=== PATIENT | female | born 1965 | race African-American/Black ===

== ENCOUNTER 2016-08-27 18:46 | Emergency (ER) | payer OTHER ==
--- NOTE | 2016-08-27 19:42 | ED ---
Chest Pain HPI - General Chief Complaint: Chest Pain Stated Complaint: Chest pain, Time Seen by Provider: 08/27/16 19:08 Source: patient, RN notes reviewed Mode of arrival: wheelchair Limitations: no limitations - History of Present Illness Initial Comments: This is a 51-year-old female who states she had the onset of intermittent pain over the left arm riding down to her left side today while at work. 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 She denies any personal history of heart or lung disease she is a smoker she has a family history heart disease she has a cough or phlegm production fevers chills sweats or other symptoms. MD Complaint: chest pain, other - Related Data Home Medications Medication Instructions Recorded Confirmed HYDROcodone/APAP 10-325MG [[place] 1 tab PO QID 05/23/14 08/27/16 10-325] clonazePAM [KlonoPIN] 1 mg PO TID PRN 05/23/14 08/27/16 Albuterol Inhaler [Ventolin Hfa 2 puff INHALATION RT-Q4H PRN 09/09/14 08/27/16 Inhaler] Albuterol Nebulized [Ventolin 2.5 mg INHALATION RT-Q6H PRN 11/02/15 08/27/16 Nebulized] cloNIDine HCL [Catapres] 0.1 mg PO BID 01/16/16 08/27/16 Omeprazole [PriLOSEC] 20 mg PO DAILY 08/27/16 08/27/16 amLODIPine [Norvasc] 5 mg PO BID 08/27/16 08/27/16 Previous Rx's Medication Instructions Recorded Metoprolol Tartrate [Lopressor] 25 mg PO BID #30 tab 11/02/15 Cyclobenzaprine [Flexeril] 10 mg PO TID #14 tab 08/27/16 Ibuprofen [Motrin] 800 mg PO Q6HR PRN #20 tab 08/27/16 Allergies Allergy/AdvReac Type Severity Reaction Status Date / Time No Known Allergies Allergy Verified 08/27/16 20:01 Review of Systems ROS Statement: Those systems with pertinent positive or pertinent negative responses have been documented in the HPI. ROS Other: All systems not noted in ROS Statement are negative. EKG Findings - EKG Results: EKG: interpreted by CHANTELLE HERNANDEZ, sinus rhythm, normal axis, normal QRS, normal ST/ T, no acute changes (EKG shows normal sinus rhythm of 81. Interval 144 QRS duration 82 QT/QTC of 370/[address]-T wave changes and does appear to be a normal EKG.) Past Medical History Past Medical History: Asthma, GERD/Reflux, Hypertension, Osteoarthritis (OA), Thyroid Disorder Additional Past Medical History / Comment(s): Anemia History of Any Multi-Drug Resistant Organisms: None Reported Past Surgical History: Appendectomy, Cholecystectomy, Tubal Ligation Additional Past Surgical History / Comment(s): Lipoma removed from left shoulder Past Anesthesia/Blood Transfusion Reactions: No Reported Reaction Past Psychological History: Anxiety, Depression, PTSD, Schizophrenia Smoking Status: Current every day smoker Past Alcohol Use History: Occasional Past Drug Use History: Marijuana Additional Drug Use History / Comment(s): doesn't use anymore - Past Family History Father Family Medical History: Myocardial Infarction ([place]) Mother Family Medical History: AFIB Sister(s) Family Medical History: Cancer, Deep Vein Thrombosis (DVT) General Exam - General Exam Comments Initial Comments: This is a well-developed well-nourished awake alert oriented 3 female Limitations: no limitations General appearance: alert, in no apparent distress Head exam: Present: atraumatic, normocephalic, normal inspection Eye exam: Present: normal appearance, PERRL, EOMI. Absent: scleral icterus, conjunctival injection, periorbital swelling ENT exam: Present: normal exam, mucous membranes moist Neck exam: Present: normal inspection. Absent: tenderness, meningismus, lymphadenopathy Respiratory exam: Present: normal lung sounds bilaterally. Absent: respiratory distress, wheezes, rales, rhonchi, stridor Cardiovascular Exam: Present: regular rate, normal rhythm, normal heart sounds. Absent: systolic murmur, diastolic murmur, rubs, gallop, clicks GI/Abdominal exam: Present: soft, normal bowel sounds. Absent: distended, tenderness, guarding, rebound, rigid Extremities exam: Present: normal inspection, full ROM, normal capillary refill. Absent: tenderness, pedal edema, joint swelling, calf tenderness Back exam: Present: normal inspection Neurological exam: Present: alert, oriented X3, CN II-XII intact Psychiatric exam: Present: normal affect, normal mood Skin exam: Present: warm, dry, intact, normal color. Absent: rash Course Vital Signs 08/27/16 08/27/16 08/27/16 18:50 19:35 20:15 Temperature 98.1 F Pulse Rate 94 84 76 Respiratory 20 18 18 Rate Blood Pressure 189/131 160/116 160/119 O2 Sat by Pulse 99 96 100 Oximetry - Reevaluation(s) Reevaluation #1: 08/27/16 19:43 I did have a long conversation with the patient regarding smoking and smoking cessation as well as a risk factors. This lasted 3.1 minutes. Chest Pain MDM - MDM Patient initially much improved I did discuss the findings with her. We did again discuss smoking cessation and the need for this. The total conversation lasted 3.1 minutes. Patient will be discharged on anti-inflammatory she is also to increase her oral fluids follow-up with her doctor return when necessary Disposition Clinical Impression: Atypical chest pain, Musculoskeletal pain, Smoking Disposition: HOME SELF-CARE Condition: Good Instructions: Chest Wall Pain (ED), Musculoskeletal Pain (ED), How to Stop Smoking (ED) Prescriptions: Cyclobenzaprine [Flexeril] 10 mg PO TID #14 tab Ibuprofen [Motrin] 800 mg PO Q6HR PRN #20 tab PRN Reason: Pain
[2016-08-27] MEDS ORDERED: cloNIDine HCL 0.1 MG TAB PO STA (19:47)
[2016-08-27] MEDS ORDERED: amLODIPine 5 MG TAB PO STA (19:48)
[2016-08-27 20:00] LABS: Anisocytosis Slight; Basophils # (A) 0.1 k/uL (0-0.2); Basophils % (A) 1 %; CH 27.4; CHCM 31.7; Eosinophils # (A) 0.1 k/uL (0-0.7); Eosinophils % (A) 2 %; HDW 2.83; HGB 11.9 gm/dL (11.4-16.0); Luc # (Auto) 0.13; Luc % (Auto) 2; Lymphocytes # (A) 1.4 k/uL (1.0-4.8); Lymphocytes % (A) 24 %; MCH 27.2 pg (25.0-35.0); MCHC 31.3 g/dL (31.0-37.0); MCV 86.8 fL (80.0-100.0); Mean Platelet Volume 6.8; Monocytes # (A) 0.2 k/uL (0-1.0); Monocytes % (A) 4 %; Neutrophils # (A) 3.8 k/uL (1.3-7.7); Neutrophils % (A) 67 %; RBC 4.38 m/uL (3.80-5.40); RDW 16.6 % (11.5-15.5); WBC 5.7 k/uL (3.8-10.6); WBC (Perox) 5.73
--- NOTE | 2016-08-27 20:07 | XR ---
EXAMINATION TYPE: XR chest 2V DATE OF EXAM: 08/27/2016 7:46 PM COMPARISON: 01/28/2016 INDICATION: Chest pain TECHNIQUE: 2 view chest FINDINGS: The heart size is normal. The pulmonary vasculature is normal. The lungs are clear. Scoliosis is present. IMPRESSION: 1. No acute pulmonary process.
[2016-08-27 20:11] LABS: ALT 30 U/L (9-52); AST 19 U/L (14-36); Alkaline Phosphatase 70 U/L (38-126); Anion Gap 8 mmol/L; Blood Urea Nitrogen 20 mg/dL (7-17); Calcium 9.5 mg/dL (8.4-10.2); Carbon Dioxide 27 mmol/L (22-30); Chloride 109 mmol/L (98-107); Glucose 88 mg/dL (74-99); Non-African American GFR(MDRD) >60 (>60 ml/min/1.73 sqM); Potassium 3.8 mmol/L (3.5-5.1); Sodium 144 mmol/L (137-145); Total Bilirubin 0.5 mg/dL (0.2-1.3); Total Protein 7.4 g/dL (6.3-8.2)
[2016-08-27 20:14] VITALS: RESP 18
[2016-08-27 20:28] LABS: Creatine Kinase 114 U/L (30-135)
[2016-08-27 20:29] LABS: Partial Thromboplastin Time 24.7 sec (22.0-30.0); Prothrombin Time 10.4 sec (9.0-12.0)
[2016-08-27 20:41] LABS: Creatine Kinase MB 0.9 ng/mL (0.0-2.4); Troponin I <0.012 ng/mL (0.000-0.034)
[2016-08-27 21:39] VITALS: BP 165/116; PULSE 74; TEMP 98.9
== END 2016-08-27 21:30 | disposition home or self-care (01) ==
LOC: EC 18:46
DX: R07.89 Other chest pain (principal); I10 Essential (primary) hypertension; M19.90 Unspecified osteoarthritis, unspecified site; K21.9 Gastro-esophageal reflux disease without esophagitis; F17.200 Nicotine dependence, unspecified, uncomplicated; Z79.891 Long term (current) use of opiate analgesic; Z79.899 Other long term (current) drug therapy
CPT/HCPCS: 36415; 71020; 80053; 82550; 82553; 83735; 84484; 85025; 85379; 85610; 85730; 93005; 99285

== ENCOUNTER 2017-02-13 08:48 | Emergency (ER) | payer OTHER ==
[2017-02-13 09:04] VITALS: BP 158/106; PULSE 81; RESP 18; TEMP 97.9
--- NOTE | 2017-02-13 09:16 | ED ---
General Adult HPI - General Chief complaint: Extremity Injury, Lower Stated complaint: left knee problem Time Seen by Provider: 02/13/17 09:08 Source: patient, RN notes reviewed Mode of arrival: ambulatory Limitations: no limitations - History of Present Illness Initial comments: 52-year-old female presents to the emergency department with a chief complaint of left knee pain. Patient states she was dancing over the weekend and she did the splits and unlabored back up she felt a pop in her knee. Patient states she has pain and pain to the back of the knee. Patient states that she has not been resting or icing it. Patient states that she was concerned because just does not seem to be getting better so she thought that she should be evaluated. Patient denies any other symptoms at this time. Patient denies any recent fever, chills, shortness of breath, chest pain, back pain, abdominal pain, nausea vomiting, numbness or tingling, dysuria or hematuria, constipation or diarrhea, headaches or visual changes, or any other current symptoms. - Related Data Home Medications Medication Instructions Recorded Confirmed HYDROcodone/APAP 10-325MG [[place] 1 tab PO QID 05/23/14 08/27/16 10-325] clonazePAM [KlonoPIN] 1 mg PO TID PRN 05/23/14 08/27/16 Albuterol Inhaler [Ventolin Hfa 2 puff INHALATION RT-Q4H PRN 09/09/14 08/27/16 Inhaler] cloNIDine HCL [Catapres] 0.1 mg PO BID 01/16/16 08/27/16 Omeprazole [PriLOSEC] 20 mg PO DAILY 08/27/16 08/27/16 amLODIPine [Norvasc] 5 mg PO BID 08/27/16 08/27/16 Metoprolol Tartrate [Lopressor] 25 mg PO DAILY 02/13/17 02/13/17 buPROPion SR [Wellbutrin SR] 150 mg PO BID 02/13/17 02/13/17 Previous Rx's Medication Instructions Recorded Ibuprofen [Motrin] 600 mg PO Q6HR PRN #20 tab 02/13/17 Allergies Allergy/AdvReac Type Severity Reaction Status Date / Time No Known Allergies Allergy Verified 02/13/17 09:29 Review of Systems ROS Statement: Those systems with pertinent positive or pertinent negative responses have been documented in the HPI. ROS Other: All systems not noted in ROS Statement are negative. Past Medical History Past Medical History: Asthma, GERD/Reflux, Hypertension, Osteoarthritis (OA), Thyroid Disorder Additional Past Medical History / Comment(s): Anemia History of Any Multi-Drug Resistant Organisms: None Reported Past Surgical History: Appendectomy, Cholecystectomy, Tubal Ligation Additional Past Surgical History / Comment(s): Lipoma removed from left shoulder Past Anesthesia/Blood Transfusion Reactions: No Reported Reaction Past Psychological History: ADD/ADHD, Anxiety, Bipolar, Depression, Panic Disorder, PTSD, Schizophrenia Smoking Status: Current every day smoker Past Alcohol Use History: Occasional Past Drug Use History: Marijuana - Past Family History Father Family Medical History: Myocardial Infarction ([place]) Mother Family Medical History: AFIB Sister(s) Family Medical History: Cancer, Deep Vein Thrombosis (DVT) General Exam - General Exam Comments Initial Comments: General: The patient is awake and alert, in no distress, and does not appear acutely ill. Neck: The neck is supple, there is no tenderness. Cardiovascular: There is a regular rate and rhythm. No murmur, rub or gallop is appreciated. Respiratory: Lungs are clear to auscultation, respirations are non-labored, breath sounds are equal. No wheezes, stridor, rales, or rhonchi. Musculoskeletal: Sensation intact with 2+ pulses at the left flexion. [place] motion of left hip left knee and left ankle. Patient does appear to have some posterior swelling to left knee and some tenderness along the patella. Full range of motion of the left knee. No laxity noted. Neurological: CN II-XII intact, There are no obvious motor or sensory deficits. Coordination appears grossly intact. Speech is normal. Skin: Skin is warm and dry and no rashes or lesions are noted. Psychiatric: Normal mood and affect. Limitations: no limitations Course Vital Signs 02/13/17 08:59 Temperature 97.9 F Pulse Rate 81 Respiratory 18 Rate Blood Pressure 158/106 O2 Sat by Pulse 100 Oximetry Procedures - Orthopedic Splinting/Casting Injury #1 Side: left Lower Extremity Injury Location: knee Lower Extremity Immobilizer: Dawson wrap Medical Decision Making - Medical Decision Making 52-year-old female presents with what appears the left knee strain. We did review the x-rays. Patient states Dawson bandage and will start her on Motrin. We discussed return parameters and follow-up and outpatient and family's questions. They stated that they are in agreement this plan. All questions have been answered. They will be discharged. - Radiology Data Radiology results: report reviewed, image reviewed Disposition Clinical Impression: Left knee sprain Disposition: HOME SELF-CARE Condition: Stable Instructions: Knee Pain (ED) Additional Instructions: Please use medication as discussed. Please follow up with family doctor if symptoms have not improved over the next two days. Please return to the emergency room if your symptoms increase or worsen or for any other concerns. Prescriptions: Ibuprofen [Motrin] 600 mg PO Q6HR PRN #20 tab PRN Reason: Pain Referrals: Riley Govea MD [Primary Care Provider] - 1-2 days Time of Disposition: 09:50
--- NOTE | 2017-02-13 09:41 | XR ---
EXAMINATION TYPE: XR knee complete LT DATE OF EXAM: 02/13/2017 CLINICAL HISTORY: Knee pain and swelling after straining injury a few days ago. TECHNIQUE: Three views of the left knee are obtained. COMPARISON: None. FINDINGS: There is no acute fracture/dislocation evident in left knee. The tri-compartment joint sp aces appear within normal limits. The overlying soft tissue appears unremarkable. IMPRESSION: There is no acute fracture or dislocation in the left knee.
== END 2017-02-13 09:52 | disposition home or self-care (01) ==
LOC: EC 08:48
DX: S83.92XA Sprain of unspecified site of left knee, initial encounter (principal); I10 Essential (primary) hypertension; K21.9 Gastro-esophageal reflux disease without esophagitis; F32.9 Major depressive disorder, single episode, unspecified; F41.9 Anxiety disorder, unspecified; F17.200 Nicotine dependence, unspecified, uncomplicated; Z79.891 Long term (current) use of opiate analgesic; Z79.899 Other long term (current) drug therapy; X50.9XXA Other and unspecified overexertion or strenuous movements or postures, initial encounter; Y93.41 Activity, dancing; Y92.89 Other specified places as the place of occurrence of the external cause
CPT/HCPCS: 99283

== ENCOUNTER 2017-02-14 22:23 | Emergency (ER) | payer OTHER ==
[2017-02-14 22:42] VITALS: PULSE 107; RESP 18; TEMP 97.5
[2017-02-14] MEDS ORDERED: KETOROLAC 60 MG/2 ML VIAL IM STA (22:57)
--- NOTE | 2017-02-14 22:59 | ED ---
Lower Extremity Injury HPI - General Chief Complaint: Extremity Injury, Lower Stated Complaint: Leg Pain Time Seen by Provider: 02/14/17 22:42 Source: patient, RN notes reviewed Mode of arrival: ambulatory Limitations: no limitations - History of Present Illness Initial Comments: 52-year-old female present emergency department for recheck of her left knee. Patient states that she did this with other day and had a pop in her knee. Patient x-ray shows no acute abnormality. Patient states she's had rapid has not unwrapped and states that she noticed some swelling around it. Patient denies any discoloration. Patient states is still slightly painful. She does take [place] daily. Patient was also given ibuprofen. Patient has not follow-up with orthopedics as directed. Patient offers no other complaints. - Related Data Home Medications Medication Instructions Recorded Confirmed HYDROcodone/APAP 10-325MG [[place] 1 tab PO QID 05/23/14 02/14/17 10-325] clonazePAM [KlonoPIN] 1 mg PO BID PRN 05/23/14 02/14/17 Albuterol Inhaler [Ventolin Hfa 2 puff INHALATION RT-Q4H PRN 09/09/14 02/14/17 Inhaler] cloNIDine HCL [Catapres] 0.1 mg PO BID PRN 01/16/16 02/14/17 Omeprazole [PriLOSEC] 20 mg PO DAILY 08/27/16 02/14/17 amLODIPine [Norvasc] 5 mg PO BID 08/27/16 02/14/17 Metoprolol Tartrate [Lopressor] 25 mg PO DAILY 02/13/17 02/14/17 buPROPion SR [Wellbutrin SR] 150 mg PO BID 02/13/17 02/14/17 Previous Rx's Medication Instructions Recorded Ibuprofen [Motrin] 600 mg PO Q6HR PRN #20 tab 02/13/17 Allergies Allergy/AdvReac Type Severity Reaction Status Date / Time No Known Allergies Allergy Verified 02/14/17 22:54 Review of Systems ROS Statement: Those systems with pertinent positive or pertinent negative responses have been documented in the HPI. ROS Other: All systems not noted in ROS Statement are negative. Past Medical History Past Medical History: Asthma, GERD/Reflux, Hypertension, Osteoarthritis (OA), Thyroid Disorder Additional Past Medical History / Comment(s): Anemia History of Any Multi-Drug Resistant Organisms: None Reported Past Surgical History: Appendectomy, Cholecystectomy, Tubal Ligation Additional Past Surgical History / Comment(s): Lipoma removed from left shoulder Past Anesthesia/Blood Transfusion Reactions: No Reported Reaction Past Psychological History: ADD/ADHD, Anxiety, Bipolar, Depression, Panic Disorder, PTSD, Schizophrenia Smoking Status: Current every day smoker Past Alcohol Use History: Occasional Past Drug Use History: Marijuana - Past Family History Father Family Medical History: Myocardial Infarction ([place]) Mother Family Medical History: AFIB Sister(s) Family Medical History: Cancer, Deep Vein Thrombosis (DVT) General Exam Limitations: no limitations General appearance: alert, in no apparent distress Respiratory exam: Present: normal lung sounds bilaterally. Absent: respiratory distress, wheezes, rales, rhonchi, stridor Cardiovascular Exam: Present: regular rate, normal rhythm, normal heart sounds. Absent: systolic murmur, diastolic murmur, rubs, gallop, clicks Extremities exam: Present: other (Left knee full range of motion mild tenderness to anterior surface, there is swelling noted of the left knee small effusion noted, neurovascular intact lower extremity equal strength) Course Vital Signs 02/14/17 22:36 Temperature 97.5 F L Pulse Rate 107 H Respiratory 18 Rate Blood Pressure 187/123 O2 Sat by Pulse 98 Oximetry Medical Decision Making - Medical Decision Making 52-year-old female presented for recheck of left knee. Patient has a left knee sprain. Patient had swelling because she has not unwrapped it. She is advised on wrap it elevated and follow-up with orthopedics return parameters were discussed. Disposition Clinical Impression: Left knee sprain Disposition: HOME SELF-CARE Condition: Stable Instructions: Knee Sprain (ED) Additional Instructions: Please return to the Emergency Department if symptoms worsen or any other concerns. Referrals: Riley Govea MD [Primary Care Provider] - 1-2 days Lance Sinclair MD [STAFF PHYSICIAN] - 1-2 days Time of Disposition: 22:59
[2017-02-14 23:05] VITALS: BP 169/114
== END 2017-02-14 23:13 | disposition home or self-care (01) ==
LOC: EC 22:23
DX: S83.92XD Sprain of unspecified site of left knee, subsequent encounter (principal); I10 Essential (primary) hypertension; K21.9 Gastro-esophageal reflux disease without esophagitis; F32.9 Major depressive disorder, single episode, unspecified; F41.9 Anxiety disorder, unspecified; F17.200 Nicotine dependence, unspecified, uncomplicated; Z79.891 Long term (current) use of opiate analgesic; Z79.899 Other long term (current) drug therapy; X58.XXXD Exposure to other specified factors, subsequent encounter; Y93.89 Activity, other specified
CPT/HCPCS: 99283; 96372; J1885

== ENCOUNTER 2017-09-06 21:44 | Observation (INO) | payer OTHER ==
[2017-09-06] MEDS ORDERED: cloNIDine HCL 0.1 MG TAB PO STA (22:20)
[2017-09-06] MEDS ORDERED: amLODIPine 5 MG TAB PO STA (22:20)
--- NOTE | 2017-09-06 22:24 | ED ---
General Adult HPI - General Chief complaint: Recheck/Abnormal Lab/Rx Stated complaint: Hypertensive Time Seen by Provider: 09/06/17 22:12 Source: patient, RN notes reviewed Mode of arrival: ambulatory Limitations: no limitations - History of Present Illness Initial comments: Patient is a pleasant 52-year-old female presenting to the emergency department with hypertension. Patient states blood pressure has been more elevated for the past several weeks. Patient does provide numbers that are not consistent with a normal blood pressure, for example she states 114/140. Patient has been having some headaches at times. Headaches occur in different areas usually in the back. Headache is mild at this time. Patient is also had some tingling. No weakness or confusion. Patient was taken off her Lopressor several months ago because she feels it was raising her blood pressure. - Related Data Home Medications Medication Instructions Recorded Confirmed HYDROcodone/APAP 10-325MG [[place] 1 tab PO QID 05/23/14 09/06/17 10-325] clonazePAM [KlonoPIN] 1 mg PO BID PRN 05/23/14 09/06/17 Albuterol Inhaler [Ventolin Hfa 2 puff INHALATION RT-Q4H PRN 09/09/14 09/06/17 Inhaler] cloNIDine HCL [Catapres] 0.1 mg PO BID PRN 01/16/16 09/06/17 amLODIPine [Norvasc] 5 mg PO BID 08/27/16 09/06/17 Allergies Allergy/AdvReac Type Severity Reaction Status Date / Time No Known Allergies Allergy Verified 09/06/17 22:29 Review of Systems ROS Statement: Those systems with pertinent positive or pertinent negative responses have been documented in the HPI. ROS Other: All systems not noted in ROS Statement are negative. Constitutional: Denies: fever Eyes: Denies: eye pain ENT: Denies: ear pain Respiratory: Denies: cough Cardiovascular: Denies: chest pain, palpitations Endocrine: Denies: fatigue Gastrointestinal: Denies: abdominal pain Genitourinary: Denies: dysuria Musculoskeletal: Denies: back pain Skin: Denies: rash Neurological: Reports: headache, paresthesias. Denies: weakness, confusion Past Medical History Past Medical History: Asthma, GERD/Reflux, Hypertension, Osteoarthritis (OA), Thyroid Disorder Additional Past Medical History / Comment(s): Anemia History of Any Multi-Drug Resistant Organisms: None Reported Past Surgical History: Appendectomy, Cholecystectomy, Tubal Ligation Additional Past Surgical History / Comment(s): Lipoma removed from left shoulder Past Anesthesia/Blood Transfusion Reactions: No Reported Reaction Past Psychological History: ADD/ADHD, Anxiety, Bipolar, Depression, Panic Disorder, PTSD, Schizophrenia Smoking Status: Current every day smoker Past Alcohol Use History: Occasional Past Drug Use History: Marijuana - Past Family History Father Family Medical History: Myocardial Infarction ([place]) Mother Family Medical History: AFIB Sister(s) Family Medical History: Cancer, Deep Vein Thrombosis (DVT) General Exam Limitations: no limitations General appearance: alert, in no apparent distress Head exam: Present: atraumatic Eye exam: Present: normal appearance, PERRL, EOMI. Absent: nystagmus ENT exam: Present: normal oropharynx Neck exam: Present: normal inspection Respiratory exam: Present: normal lung sounds bilaterally Cardiovascular Exam: Present: regular rate, normal rhythm GI/Abdominal exam: Present: soft. Absent: tenderness Extremities exam: Present: normal inspection Neurological exam: Present: alert, CN II-XII intact. Absent: motor sensory deficit Expanded Speech: Present: fluid speech Cranial nerves: EOM's Intact: Normal, Facial Sensation: Normal Sensory exam: Upper Extremity Light Touch: Normal, Lower Extremity Light Touch: Normal Motor strength exam: RUE: 5, LUE: 5, RLE: 5, LLE: 5 Eye Response: (4) open spontaneously Motor Response: (6) obeys commands Verbal Response: (5) oriented Psychiatric exam: Present: normal affect, normal mood Skin exam: Present: normal color Course Vital Signs 09/06/17 09/06/17 09/06/17 22:01 22:31 23:39 Temperature 98.3 F 97.8 F Pulse Rate 101 H 89 82 Respiratory 20 18 16 Rate Blood Pressure 194/127 181/118 148/112 O2 Sat by Pulse 97 98 Oximetry EKG Findings - EKG Comments: EKG Findings:: Normal sinus rhythm 87. OK 152. QRS 76. QT 34. QTC 462. Normal axis. Septal Q waves. No acute ST change. Medical Decision Making - Medical Decision Making Patient reevaluated and headache is improved. Patient remains hypertensive despite several medications. Case was discussed in detail with Dr. Perez, who will admit for Dr. Govea. Patient updated. - Lab Data Result diagrams: 09/06/17 22:39 09/06/17 22:39 Lab Results 09/06/17 09/06/17 09/06/17 Range/Units 22:39 22:39 22:39 WBC 5.6 (3.8-10.6) k/uL RBC 4.57 (3.80-5.40) m/uL Hgb 12.6 (11.4-16.0) gm/dL Hct 38.7 (34.0-46.0) % MCV 84.6 (80.0-100.0) fL MCH 27.6 (25.0-35.0) pg MCHC 32.7 (31.0-37.0) g/dL RDW 15.1 (11.5-15.5) % Plt Count 298 (150-450) k/uL Neutrophils % 64 % Lymphocytes % 27 % Monocytes % 4 % Eosinophils % 3 % Basophils % 1 % Neutrophils # 3.6 (1.3-7.7) k/uL Lymphocytes # 1.5 (1.0-4.8) k/uL Monocytes # 0.2 (0-1.0) k/uL Eosinophils # 0.2 (0-0.7) k/uL Basophils # 0.0 (0-0.2) k/uL PT 9.9 (9.0-12.0) sec INR 1.0 (<1.2) APTT 24.7 (22.0-30.0) sec Sodium 144 (137-145) mmol/L Potassium 3.8 (3.5-5.1) mmol/L Chloride 108 H (98-107) mmol/L Carbon Dioxide 24 (22-30) mmol/L Anion Gap 12 mmol/L BUN 17 (7-17) mg/dL Creatinine 0.80 (0.52-1.04) mg/dL Est GFR (CKD-EPI)AfAm >90 (>60 ml/min/1.73 sqM) Est GFR (CKD-EPI)NonAf 84 (>60 ml/min/1.73 sqM) Glucose 100 H (74-99) mg/dL Calcium 9.4 (8.4-10.2) mg/dL Total Bilirubin 0.3 (0.2-1.3) mg/dL AST 21 (14-36) U/L ALT 36 (9-52) U/L Alkaline Phosphatase 94 (38-126) U/L Total Protein 7.0 (6.3-8.2) g/dL Albumin 4.2 (3.5-5.0) g/dL - Radiology Data Radiology results: image reviewed (Computed tomography scan the brain shows no acute process.) Disposition Clinical Impression: Hypertensive urgency Disposition: ADMITTED IP TO THIS [facility] Referrals: Riley Govea MD [Primary Care Provider] - 1-2 days Decision Time: 00:26
[2017-09-06 22:49] LABS: Basophils % (A) 1 %; Eosinophils # (A) 0.2 k/uL (0-0.7); Eosinophils % (A) 3 %; HCT 38.7 % (34.0-46.0); HGB 12.6 gm/dL (11.4-16.0); Lymphocytes # (A) 1.5 k/uL (1.0-4.8); Lymphocytes % (A) 27 %; MCH 27.6 pg (25.0-35.0); MCHC 32.7 g/dL (31.0-37.0); MCV 84.6 fL (80.0-100.0); Mean Platelet Volume 6.5; Monocytes # (A) 0.2 k/uL (0-1.0); Monocytes % (A) 4 %; Neutrophils # (A) 3.6 k/uL (1.3-7.7); Neutrophils % (A) 64 %; Platelet Count 298 k/uL (150-450); RBC 4.57 m/uL (3.80-5.40); RDW 15.1 % (11.5-15.5); WBC 5.6 k/uL (3.8-10.6)
[2017-09-06 22:57] LABS: Partial Thromboplastin Time 24.7 sec (22.0-30.0); Prothrombin Time 9.9 sec (9.0-12.0)
[2017-09-06 22:58] LABS: ALT 36 U/L (9-52); AST 21 U/L (14-36); Albumin 4.2 g/dL (3.5-5.0); Alkaline Phosphatase 94 U/L (38-126); Anion Gap 12 mmol/L; Blood Urea Nitrogen 17 mg/dL (7-17); Calcium 9.4 mg/dL (8.4-10.2); Carbon Dioxide 24 mmol/L (22-30); Chloride 108 mmol/L (98-107); Glucose 100 mg/dL (74-99); Potassium 3.8 mmol/L (3.5-5.1); Sodium 144 mmol/L (137-145); Total Bilirubin 0.3 mg/dL (0.2-1.3)
--- NOTE | 2017-09-06 23:33 | CT ---
EXAMINATION TYPE: CT brain wo con DATE OF EXAM: 09/06/2017 COMPARISON: 12/01/2011 HISTORY: elevated blood pressure CT DLP: 892.10 mGycm Automated exposure control for dose reduction was used. FINDINGS: Ventricles and sulci appear normal. There is no mass effect nor midline shift. There is no sign of in tracranial hemorrhage. The calvarium is intact. IMPRESSION: NEGATIVE CT SCAN OF THE BRAIN. NO CHANGE.
[2017-09-06] MEDS ORDERED: ENALAPRILAT 1.25 MG/ML 1 ML VIAL IVP STA (23:56)
[2017-09-07] MEDS ORDERED: cloNIDine HCL 0.1 MG TAB PO PRN (00:27)
[2017-09-07] MEDS ORDERED: clonazePAM 1 MG TAB PO PRN (00:27)
[2017-09-07] MEDS ORDERED: NALOXONE 0.4 MG/ML 1 ML VIAL IV PRN (00:28)
[2017-09-07] MEDS ORDERED: SODIUM CHLORIDE 0.9% 1,000 ML IV SCH (00:30)
[2017-09-07] MEDS ORDERED: ENALAPRILAT 1.25 MG/ML 1 ML VIAL IVP PRN (00:33)
[2017-09-07 01:39] VITALS: BMI 30.2
[2017-09-07 07:57] VITALS: RESP 18
[2017-09-07] MEDS ORDERED: amLODIPine 5 MG TAB PO SCH (09:00)
[2017-09-07] MEDS ORDERED: ATENOLOL 25 MG TAB PO SCH (09:00)
[2017-09-07] MEDS ORDERED: ACETAMINOPHEN TAB 325 MG TAB PO PRN (09:08)
[2017-09-07 11:50] VITALS: BP 125/70; PULSE 71; TEMP 98.1
--- NOTE | 2017-09-07 13:05 | P.HPIM ---
History of Present Illness 52-year-old female is admitted because of elevated blood pressure apparently patient blood pressure is about 200 systolic. Patient's symptom is only headache patient denied any chest pain nausea vomiting patient denied any abdominal pain, blurry vision. Patient doesn't have any symptoms of hypertensive encephalopathy no confusion. Patient blood pressure at home is consistently elevated patient takes amlodipine 5 mg twice a day and clonidine as on as-needed basis for elevated blood pressure. Patient has been under a lot of stress and the patient is unsure whether patient is taking her blood pressure medications appropriately because of which she believes her blood pressure is elevated. Patient blood pressure has come down quite a bit just with addition of small dose of atenolol unsure whether patient is actually compliment with her medications. I extensively counseled her regarding the appropriate way to check blood pressure. Patient was asked to check blood pressure twice a day for about a week and take it to primary care physician's office Dr. Govea's office for titration of her medications. Counseling regarding low-salt diet was provided patient is noncompliant with her diet as well. Patient is an -[place] female, because of which diuretic therapy will be the first line of medication for her hypertension. Anyway because patient is bit tachycardic as start her on atenolol I'll discontinue her when necessary clonidine. Patient will need to use low-salt diet. Review of Systems REVIEW OF SYSTEMS: CONSTITUTIONAL: No fever, no malaise, no fatigue. HEENT: No recent visual problems or hearing problems. Denied any sore throat. CARDIOVASCULAR: No chest pain, orthopnea, PND, no palpitations, no syncope. PULMONARY: No shortness of breath, no cough, no hemoptysis. GASTROINTESTINAL: No diarrhea, no nausea, no vomiting, no abdominal pain. Normoactive bowel sounds. NEUROLOGICAL: , no weakness, no numbness. HEMATOLOGICAL: Denies any bleeding or petechiae. GENITOURINARY: Denies any burning micturition, frequency, or urgency. MUSCULOSKELETAL/RHEUMATOLOGICAL: Denies any joint pain, swelling, or any muscle pain. ENDOCRINE: Denies any polyuria or polydipsia. The rest of the 14-point review of systems is negative. Past Medical History Past Medical History: Asthma, GERD/Reflux, Hypertension, Osteoarthritis (OA), Thyroid Disorder Additional Past Medical History / Comment(s): Anemia, chronic back pain see Dr. Polo for pain specialist History of Any Multi-Drug Resistant Organisms: None Reported Past Surgical History: Appendectomy, Cholecystectomy, Tubal Ligation Additional Past Surgical History / Comment(s): Lipoma removed from left shoulder Past Anesthesia/Blood Transfusion Reactions: No Reported Reaction Past Psychological History: ADD/ADHD, Anxiety, Bipolar, Depression, Panic Disorder, PTSD, Schizophrenia Smoking Status: Current every day smoker Past Alcohol Use History: Daily Additional Past Alcohol Use History / Comment(s): pt states for the last few months she has been drinking 1/2 pint every day. denies going thru DT's or having surgeries Past Drug Use History: None Reported - Past Family History Father Family Medical History: Myocardial Infarction ([place]) Mother Family Medical History: AFIB Sister(s) Family Medical History: Cancer, Deep Vein Thrombosis (DVT) Medications and Allergies Home Medications Medication Instructions Recorded Confirmed Type HYDROcodone/APAP 10-325MG [[place] 1 tab PO QID 05/23/14 09/06/17 History 10-325] clonazePAM [KlonoPIN] 1 mg PO BID PRN 05/23/14 09/06/17 History Albuterol Inhaler [Ventolin Hfa 2 puff INHALATION RT-Q4H PRN 09/09/14 09/06/17 History Inhaler] amLODIPine [Norvasc] 5 mg PO BID 08/27/16 09/06/17 History Atenolol 25 mg PO DAILY #30 tablet 09/07/17 Rx Allergies Allergy/AdvReac Type Severity Reaction Status Date / Time No Known Allergies Allergy Verified 09/06/17 22:29 Physical Exam Vitals: Vital Signs Temp Pulse Pulse Resp BP BP Pulse Ox 09/07/17 11:35 98.1 F 71 18 125/70 97 09/07/17 08:00 18 09/07/17 07:30 97.9 F 69 18 116/82 98 09/07/17 04:00 98.0 F 78 16 114/71 96 09/07/17 02:02 16 09/07/17 01:28 98.0 F 86 16 126/94 94 L 09/07/17 00:42 84 18 140/100 97 09/06/17 23:39 82 16 148/112 98 09/06/17 22:31 97.8 F 89 18 181/118 97 09/06/17 22:01 98.3 F 101 H 20 194/127 Intake and Output 09/06/17 09/07/17 09/07/17 22:59 06:59 14:59 Intake Total 420 Balance 420 Intake: Oral 420 Other: Voiding Method Toilet Toilet # Voids 3 Weight 79.832 kg 79.832 kg PHYSICAL EXAMINATION: GENERAL: The patient is alert and oriented x3, not in any acute distress. Well developed, well nourished. HEENT: Pupils are round and equally reacting to light. EOMI. No scleral icterus. No conjunctival pallor. Normocephalic, atraumatic. No pharyngeal erythema. No thyromegaly. CARDIOVASCULAR: S1 and S2 present. No murmurs, rubs, or gallops. PULMONARY: Chest is clear to auscultation, no wheezing or crackles. ABDOMEN: Soft, nontender, nondistended, normoactive bowel sounds. No palpable organomegaly. MUSCULOSKELETAL: No joint swelling or deformity. EXTREMITIES: No cyanosis, clubbing, or pedal edema. NEUROLOGICAL: Gross neurological examination did not reveal any focal deficits. SKIN: No rashes. Results CBC & Chem 7: 09/06/17 22:39 09/06/17 22:39 Labs: Abnormal Lab Results - Last 24 Hours (Table) 09/06/17 Range/Units 22:39 Chloride 108 H (98-107) mmol/L Glucose 100 H (74-99) mg/dL Thrombosis Risk Factor Assmnt - Choose All That Apply Each Factor Represents 1 point: Age 41-60 years, Obesity (BMI >25) Thrombosis Risk Factor Assessment Total Risk Factor Score: 2 Thrombosis Risk Factor Assessment Level: Low Risk Assessment and Plan Plan: -Accelerated hypertension: Patient does not have any hypertensive emergency, patient blood pressure has come down quite a bit had elevated blood pressures probably related to the stress of noncompliance with diet and medications. Adding a low-dose of atenolol with concerns of low blood pressure which can lead to either strokes or renal dysfunction. -Anxiety disorder -Nicotine use counseling was provided regarding this patient was asked not to check the blood pressure after coffee or cigarette smoking or if she is anxious. -Asthma without any acute exacerbation -Gastroesophageal reflux disease
--- NOTE | 2017-09-07 13:05 | P.DS ---
Providers Date of admission: 09/07/17 00:28 Attending physician: Alan Perez Primary care physician: Riley Govea [facility] Course: Please refer to HPI Plan - Discharge Summary New Discharge Prescriptions: New Atenolol 25 mg PO DAILY #30 tablet Discontinued cloNIDine HCL [Catapres] 0.1 mg PO BID PRN PRN Reason: Blood Pressure - High No Action clonazePAM [KlonoPIN] 1 mg PO BID PRN PRN Reason: Anxiety HYDROcodone/APAP 10-325MG [[place] 10-325] 1 tab PO QID Albuterol Inhaler [Ventolin Hfa Inhaler] 2 puff INHALATION RT-Q4H PRN PRN Reason: Shortness Of Breath amLODIPine [Norvasc] 5 mg PO BID Discharge Medication List HYDROcodone/APAP 10-325MG [[place] 10-325] 1 tab PO QID 05/23/14 [History] clonazePAM [KlonoPIN] 1 mg PO BID PRN 05/23/14 [History] Albuterol Inhaler [Ventolin Hfa Inhaler] 2 puff INHALATION RT-Q4H PRN 09/09/14 [ History] amLODIPine [Norvasc] 5 mg PO BID 08/27/16 [History] Atenolol 25 mg PO DAILY #30 tablet 09/07/17 [Rx] Follow up Appointment(s)/Referral(s): Riley Govea MD [Primary Care Provider] - 3 Days Patient Instructions/Handouts: Hypertension (DC) Discharge Disposition: HOME SELF-CARE
== END 2017-09-07 13:43 | disposition home or self-care (01) ==
LOC: EC 21:44 → 3OBS 09-07 00:28
PROVIDERS: ADMIT Internal Medicine; ATTEND Internal Medicine
DX: I10 Essential (primary) hypertension (principal); R00.0 Tachycardia, unspecified; K21.9 Gastro-esophageal reflux disease without esophagitis; J45.909 Unspecified asthma, uncomplicated; M19.90 Unspecified osteoarthritis, unspecified site; F41.9 Anxiety disorder, unspecified; D64.9 Anemia, unspecified; E66.9 Obesity, unspecified; Z68.30 Body mass index [BMI] 30.0-30.9, adult; F10.10 Alcohol abuse, uncomplicated; F17.210 Nicotine dependence, cigarettes, uncomplicated; Z91.11 Patient's noncompliance with dietary regimen; Z91.14 Patient's other noncompliance with medication regimen; F31.9 Bipolar disorder, unspecified; F20.9 Schizophrenia, unspecified; F90.9 Attention-deficit hyperactivity disorder, unspecified type; F41.0 Panic disorder [episodic paroxysmal anxiety]; F43.10 Post-traumatic stress disorder, unspecified; M54.9 Dorsalgia, unspecified; G89.29 Other chronic pain; E07.9 Disorder of thyroid, unspecified; Z79.891 Long term (current) use of opiate analgesic; Z79.899 Other long term (current) drug therapy; Z82.49 Family history of ischemic heart disease and other diseases of the circulatory system; Z80.9 Family history of malignant neoplasm, unspecified; Z83.2 Family history of diseases of the blood and blood-forming organs and certain disorders involving the immune mechanism
CPT/HCPCS: 99285 ×2; 96374; 36415; 93005; 80053; 85025; 85610; 85730; 70450; G0378

== ENCOUNTER 2017-12-29 17:25 | Observation (INO) | payer OTHER ==
[2017-12-29 18:36] LABS: Basophils % (A) 1 %; Eosinophils # (A) 0.2 k/uL (0-0.7); Eosinophils % (A) 3 %; HCT 39.5 % (34.0-46.0); HGB 12.6 gm/dL (11.4-16.0); Lymphocytes # (A) 1.1 k/uL (1.0-4.8); Lymphocytes % (A) 19 %; MCH 27.9 pg (25.0-35.0); MCHC 31.8 g/dL (31.0-37.0); MCV 87.6 fL (80.0-100.0); Mean Platelet Volume 6.8; Monocytes # (A) 0.2 k/uL (0-1.0); Monocytes % (A) 4 %; Neutrophils # (A) 4.1 k/uL (1.3-7.7); Neutrophils % (A) 72 %; Platelet Count 269 k/uL (150-450); RBC 4.51 m/uL (3.80-5.40); RDW 15.4 % (11.5-15.5); WBC 5.7 k/uL (3.8-10.6)
[2017-12-29 18:42] LABS: Partial Thromboplastin Time 24.3 sec (22.0-30.0); Prothrombin Time 9.7 sec (9.0-12.0)
[2017-12-29 18:43] LABS: Calcium 9.5 mg/dL (8.4-10.2); Potassium 4.2 mmol/L (3.5-5.1); Total Bilirubin 0.4 mg/dL (0.2-1.3); Total Protein 7.1 g/dL (6.3-8.2)
[2017-12-29 18:49] LABS: Creatine Kinase 97 U/L (30-135)
[2017-12-29 19:02] LABS: Creatine Kinase MB 0.8 ng/mL (0.0-2.4); Troponin I <0.012 ng/mL (0.000-0.034)
--- NOTE | 2017-12-29 20:14 | ED ---
General Adult HPI - General Chief complaint: Chest Pain Stated complaint: Chest Pain x4 days Time Seen by Provider: 12/29/17 19:19 Source: patient, RN notes reviewed Mode of arrival: wheelchair Limitations: no limitations - History of Present Illness Initial comments: Patient is a pleasant 52-year-old female presenting to the emergency Department with complaints of chest discomfort. Onset of symptoms was a few days ago. Symptoms have been mostly persistent. Discomfort has been sharp on the left breast. Discomfort today is radiating somewhat above the left breast and feels more like an ache. Patient felt short of breath or couple of days ago. No associated nausea or vomiting. No diaphoresis. No history of similar symptoms previously. No leg pain or leg swelling. - Related Data Home Medications Medication Instructions Recorded Confirmed HYDROcodone/APAP 10-325MG [[place] 1 tab PO TID 05/23/14 12/29/17 10-325] clonazePAM [KlonoPIN] 1 mg PO TID 05/23/14 12/29/17 Albuterol Inhaler [Ventolin Hfa 2 puff INHALATION RT-Q4H PRN 09/09/14 12/29/17 Inhaler] Aspirin EC [Ecotrin Low Dose] 81 mg PO DAILY 12/29/17 12/29/17 Betamethasone Dipropionate 1 applic TOPICAL DAILY PRN 12/29/17 12/29/17 [Betamethasone Dipropionate 0.05%] Multivitamin,Therapeutic [Thera] 1 tab PO DAILY 12/29/17 12/29/17 Omeprazole 20 mg PO DAILY 12/29/17 12/29/17 cloNIDine HCL [Catapres] 0.1 mg PO DAILY 12/29/17 12/29/17 Previous Rx's Medication Instructions Recorded Atenolol 25 mg PO DAILY #30 tablet 09/07/17 Allergies Allergy/AdvReac Type Severity Reaction Status Date / Time No Known Allergies Allergy Verified 12/29/17 17:37 Review of Systems ROS Statement: Those systems with pertinent positive or pertinent negative responses have been documented in the HPI. ROS Other: All systems not noted in ROS Statement are negative. Constitutional: Denies: fever Eyes: Denies: eye pain ENT: Denies: ear pain Respiratory: Denies: cough Cardiovascular: Reports: chest pain Endocrine: Denies: fatigue Gastrointestinal: Denies: abdominal pain Genitourinary: Denies: dysuria Musculoskeletal: Denies: back pain Skin: Denies: rash Neurological: Denies: weakness Past Medical History Past Medical History: Asthma, GERD/Reflux, Hypertension, Osteoarthritis (OA), Thyroid Disorder Additional Past Medical History / Comment(s): Anemia, chronic back pain see Dr. Polo for pain specialist History of Any Multi-Drug Resistant Organisms: None Reported Past Surgical History: Appendectomy, Cholecystectomy, Tubal Ligation Additional Past Surgical History / Comment(s): Lipoma removed from left shoulder Past Anesthesia/Blood Transfusion Reactions: No Reported Reaction Past Psychological History: ADD/ADHD, Anxiety, Bipolar, Depression, Panic Disorder, PTSD, Schizophrenia Smoking Status: Current every day smoker Past Alcohol Use History: Daily Past Drug Use History: None Reported - Past Family History Father Family Medical History: Myocardial Infarction ([place]) Mother Family Medical History: AFIB Sister(s) Family Medical History: Cancer, Deep Vein Thrombosis (DVT) General Exam Limitations: no limitations General appearance: alert, in no apparent distress Eye exam: Present: normal appearance Neck exam: Present: normal inspection Respiratory exam: Present: normal lung sounds bilaterally. Absent: chest wall tenderness Cardiovascular Exam: Present: regular rate, normal rhythm Expanded Peripheral pulses: 2+: Radial (R), Radial (L), Posterior Tibialis (R), Posterior Tibialis (L) GI/Abdominal exam: Present: soft. Absent: tenderness Extremities exam: Present: normal inspection. Absent: pedal edema, calf tenderness Back exam: Present: normal inspection Neurological exam: Present: alert Psychiatric exam: Present: normal affect, normal mood Skin exam: Present: normal color Course Vital Signs 12/29/17 17:34 Temperature 98.3 F Pulse Rate 79 Respiratory 16 Rate Blood Pressure 159/115 O2 Sat by Pulse 99 Oximetry EKG Findings - EKG Comments: EKG Findings:: Normal sinus rhythm 73. LA 154. QRS 70. QT 412. QTC 453. Normal axis. Septal Q waves. No acute ST change. Medical Decision Making - Medical Decision Making Patient was updated on results and plan. Case was discussed with practitioner Shelby, who will admit for Dr. Diaz, covering for Dr. francisco - Lab Data Result diagrams: 12/29/17 18:17 12/29/17 18:17 Lab Results 12/29/17 12/29/17 12/29/17 Range/Units 18:17 18:17 18:17 WBC 5.7 (3.8-10.6) k/uL RBC 4.51 (3.80-5.40) m/uL Hgb 12.6 (11.4-16.0) gm/dL Hct 39.5 (34.0-46.0) % MCV 87.6 (80.0-100.0) fL MCH 27.9 (25.0-35.0) pg MCHC 31.8 (31.0-37.0) g/dL RDW 15.4 (11.5-15.5) % Plt Count 269 (150-450) k/uL Neutrophils % 72 % Lymphocytes % 19 % Monocytes % 4 % Eosinophils % 3 % Basophils % 1 % Neutrophils # 4.1 (1.3-7.7) k/uL Lymphocytes # 1.1 (1.0-4.8) k/uL Monocytes # 0.2 (0-1.0) k/uL Eosinophils # 0.2 (0-0.7) k/uL Basophils # 0.0 (0-0.2) k/uL PT (9.0-12.0) sec INR (<1.2) APTT (22.0-30.0) sec D-Dimer (<0.60) mg/L FEU Sodium 143 (137-145) mmol/L Potassium 4.2 (3.5-5.1) mmol/L Chloride 111 H (98-107) mmol/L Carbon Dioxide 26 (22-30) mmol/L Anion Gap 6 mmol/L BUN 19 H (7-17) mg/dL Creatinine 0.94 (0.52-1.04) mg/dL Est GFR (CKD-EPI)AfAm 80 (>60 ml/min/1.73 sqM) Est GFR (CKD-EPI)NonAf 69 (>60 ml/min/1.73 sqM) Glucose 95 (74-99) mg/dL Calcium 9.5 (8.4-10.2) mg/dL Magnesium 2.0 (1.6-2.3) mg/dL Total Bilirubin 0.4 (0.2-1.3) mg/dL AST 21 (14-36) U/L ALT 35 (9-52) U/L Alkaline Phosphatase 81 (38-126) U/L Total Creatine Kinase 97 (30-135) U/L CK-MB (CK-2) 0.8 (0.0-2.4) ng/mL CK-MB (CK-2) Rel Index 0.8 Troponin I <0.012 (0.000-0.034) ng/mL Total Protein 7.1 (6.3-8.2) g/dL Albumin 4.0 (3.5-5.0) g/dL 12/29/17 12/29/17 Range/Units 18:17 18:17 WBC (3.8-10.6) k/uL RBC (3.80-5.40) m/uL Hgb (11.4-16.0) gm/dL Hct (34.0-46.0) % MCV (80.0-100.0) fL MCH (25.0-35.0) pg MCHC (31.0-37.0) g/dL RDW (11.5-15.5) % Plt Count (150-450) k/uL Neutrophils % % Lymphocytes % % Monocytes % % Eosinophils % % Basophils % % Neutrophils # (1.3-7.7) k/uL Lymphocytes # (1.0-4.8) k/uL Monocytes # (0-1.0) k/uL Eosinophils # (0-0.7) k/uL Basophils # (0-0.2) k/uL PT 9.7 (9.0-12.0) sec INR 1.0 (<1.2) APTT 24.3 (22.0-30.0) sec D-Dimer 0.37 (<0.60) mg/L FEU Sodium (137-145) mmol/L Potassium (3.5-5.1) mmol/L Chloride (98-107) mmol/L Carbon Dioxide (22-30) mmol/L Anion Gap mmol/L BUN (7-17) mg/dL Creatinine (0.52-1.04) mg/dL Est GFR (CKD-EPI)AfAm (>60 ml/min/1.73 sqM) Est GFR (CKD-EPI)NonAf (>60 ml/min/1.73 sqM) Glucose (74-99) mg/dL Calcium (8.4-10.2) mg/dL Magnesium (1.6-2.3) mg/dL Total Bilirubin (0.2-1.3) mg/dL AST (14-36) U/L ALT (9-52) U/L Alkaline Phosphatase (38-126) U/L Total Creatine Kinase (30-135) U/L CK-MB (CK-2) (0.0-2.4) ng/mL CK-MB (CK-2) Rel Index Troponin I (0.000-0.034) ng/mL Total Protein (6.3-8.2) g/dL Albumin (3.5-5.0) g/dL - Radiology Data Radiology results: image reviewed (Chest x-ray shows no acute process) Disposition Clinical Impression: Chest pain Disposition: ADMITTED IP TO THIS HOSP Is patient prescribed a controlled substance at d/c from ED?: No Referrals: Riley Francisco MD [Primary Care Provider] - 1-2 days Decision Time: 20:16
[2017-12-29] MEDS ORDERED: NITROGLYCERIN SL TABS 0.4 MG TAB SUBLINGUAL PRN (20:16)
[2017-12-29] MEDS ORDERED: ASPIRIN 81 MG PO STA (20:16)
--- NOTE | 2017-12-29 20:33 | XR ---
EXAMINATION TYPE: XR chest 2V DATE OF EXAM: 12/29/2017 COMPARISON: 08/27/2016 HISTORY: Chest pain TECHNIQUE: Frontal and lateral views of the chest are obtained. FINDINGS: Heart and mediastinum are normal. Lungs are clear. Diaphragm is normal. There is mild midt horacic dextroscoliosis. IMPRESSION: No active cardiopulmonary disease. No change.
[2017-12-29] MEDS ORDERED: ATENOLOL 25 MG TAB PO STA (20:57)
[2017-12-29] MEDS ORDERED: cloNIDine HCL 0.1 MG TAB PO STA (20:57)
[2017-12-29] MEDS: NITROGLYCERIN OINT 1 INCH/GM PACKET TOPICAL SCH (21:23)
[2017-12-29 23:34] VITALS: BMI 30.4
[2017-12-30] MEDS ORDERED: MORPHINE SULFATE 2 MG/ML SYRINGE IVP PRN (00:13)
[2017-12-30] MEDS ORDERED: ONDANSETRON 4 MG/2 ML VIAL IVP PRN (00:14)
[2017-12-30 01:17] LABS: Creatine Kinase 85 U/L (30-135)
[2017-12-30 01:28] LABS: Creatine Kinase MB 0.8 ng/mL (0.0-2.4); Troponin I <0.012 ng/mL (0.000-0.034)
[2017-12-30] MEDS: NITROGLYCERIN OINT 1 INCH/GM PACKET TOPICAL SCH (06:19)
[2017-12-30 06:43] LABS: Cholesterol 159 mg/dL (<200); HDL Cholesterol 51 mg/dL (40-60); LDL Cholesterol,Calculated 76 mg/dL (0-99); Triglycerides 160 mg/dL (<150)
[2017-12-30 07:09] LABS: Creatine Kinase 72 U/L (30-135)
[2017-12-30 07:23] LABS: Creatine Kinase MB 0.7 ng/mL (0.0-2.4); Troponin I <0.012 ng/mL (0.000-0.034)
[2017-12-30] MEDS ORDERED: ATENOLOL 25 MG TAB PO SCH (09:00)
[2017-12-30] MEDS ORDERED: ASPIRIN 325 MG TAB PO SCH (09:00)
[2017-12-30] MEDS ORDERED: cloNIDine HCL 0.1 MG TAB PO SCH (09:00)
--- NOTE | 2017-12-30 10:17 | CONS ---
CONSULTATION Jelena Jaffe is a very pleasant 52-year-old lady with a known history of hypertensive cardiovascular disease. She sees Dr. Riley Govea in the outpatient setting. She also takes pain medications for her back pain issues and uses an inhaler for her bronchial asthma. She is a reasonably active person. She came into the hospital with an episode of what she describes as discomfort under her left breast with some radiation towards the left clavicle. Quality of the pain is very atypical, musculoskeletal reproducible and there is tenderness as well. She does not recall any injury, but she has been lifting some heavy objects lately. Pain has already improved. She does not seem to have any pain at the time of my evaluation, but on examination, there is some tenderness. Her troponins are normal. Her last stress echo 2 years ago was unremarkable. She walked for over 9 minutes. She is asymptomatic at the time of my evaluation. PAST MEDICAL HISTORY: Bronchial asthma, hypertension, osteoarthritis, history of some thyroid issues, chronic back pain. Sees Dr. Polo for pain care. ALLERGIES: None. MEDICATIONS: Include atenolol, omeprazole, clonidine; she takes some inhalers for her bronchial asthma. REVIEW OF SYSTEMS: Unremarkable other than above-mentioned facts. SOCIAL HISTORY: Unfortunately patient smokes and continues to smoke. Uses alcohol on a regular basis. PHYSICAL EXAMINATION: Blood pressure is 130/80, pulse rate is 70 per minute, regular. HEENT: Unremarkable. Fundus was not examined by me. Neck is supple. There is no JVD. I do not hear a carotid bruit. There is no thyromegaly. Heart exam reveals S1, S2 heard normally. No rub, murmur or gallop. Lungs are clear. Abdomen is soft, nontender. Lower extremities reveal normal pulses. No edema. Central nervous system is normal. EKG revealed a sinus mechanism with poor R-wave progression, borderline voltage criteria for LVH. No acute changes. LABORATORY DATA: Revealed unremarkable troponins. IMPRESSION: 1. Atypical musculoskeletal chest pain. 2. Hypertension, under decent control. 3. Bronchial asthma. 4. History of smoking. RECOMMENDATIONS: I have counseled regarding the need to quit smoking. She is advised to take nonsteroidal anti-inflammatory agents for her pain. No intervention necessary at this time. An outpatient stress testing is advised and she will coordinate this through her primary care physician, Dr. Govea. MMODL / IJN: [id number] /
[2017-12-30 12:15] VITALS: BP 121/86; PULSE 67; RESP 16; TEMP 97.9
--- NOTE | 2017-12-30 20:08 | HP ---
HISTORY AND PHYSICAL This is a combination of History and Physical and Discharge Summary. I am covering for Dr. Govea. CHIEF COMPLAINT: Chest pain. HISTORY OF PRESENT ILLNESS: This 52-year-old woman with a past medical history of multiple medical problems including bronchial asthma, GERD, hypertension, DJD, hypothyroidism, anemia, ADHD, anxiety, bipolar depression, being followed by Dr. Govea in the outpatient setting was admitted with chest pain. The pain was felt in the lower part of the back with discomfort according to her and the patient came to [facility]. There is no history of fever or rigors. No headache. EKG n. Troponins are negative. Cardiology evaluation in progress. PAST MEDICAL HISTORY: History of asthma, GERD, hypertension, history of DJD, history of anemia, chronic back pain. MEDICATIONS: 1. Klonopin 1 mg t.i.d. 2. Catapres 0.1 daily. 3. Omeprazole 20 mg daily. 4. Multivitamins. 5. Hydrocodone 10 mg t.i.d. p.r.n. 7. Metoprolol 25 mg. 8. Ecotrin 81 mg. 9. Ventolin 2 puffs q.4h p.r.n. 10.Tylenol 500 mg p.r.n. ALLERGIES: None. FAMILY HISTORY: History of deep venous thrombosis and cancer in the family. SOCIAL HISTORY: History of smoking. Occasional alcohol intake. REVIEW OF SYSTEMS: ENT: No diminished hearing or vision. CARDIOVASCULAR: As mentioned earlier. RESPIRATORY SYSTEM: As mentioned earlier. GI: No nausea. : No dysuria. NERVOUS SYSTEM: No numbness or weakness. MUSCULOSKELETAL SYSTEM: As mentioned earlier. HEMATOLOGY/ONCOLOGY: No history of anemia. ENDOCRINE: No history of diabetes or hyperlipidemia. PSYCH: As mentioned earlier. PHYSICAL EXAMINATION: Alert, oriented x3. Pulse 67. Blood pressure 120/86, respirations 16, temperature 97.9, pulse ox 100% room air. HEENT: Conjunctivae normal. Oral mucosa moist. NECK: No jugular venous distention. No lymph nodes enlarged. CARDIOVASCULAR: S1, S2. RESPIRATORY: Diminished breath sounds at the bases. No rhonchi, no crackles. ABDOMEN: Soft, nontender. No mass palpable. LEGS: No edema, no swelling. NERVOUS SYSTEM: Higher functions as mentioned. Moves all four limbs. LYMPHATICS; No lymph nodes. SKIN: No ulcer, rash, bleeding. LAB STUDIES: D-dimer is negative. CBC within normal limits. 19. Triglycerides 160. Other labs are noted. Chest x-ray showed no acute abnormality and EKG which is reviewed by me and showed diffuse ST-T changes, no acute abnormality. ASSESSMENT: 1. Chest pain, myocardial infarction ruled out. Rule out coronary artery disease. 2. Asthma. 3. GERD. 4. Hypertension. 5. History of DJD. 6. History anemia. 7. History of chronic back pain. 8. History of anxiety, bipolar depression, panic disorder, PTSD. 9. History of EtOH. RECOMMENDATIONS AND DISCUSSION: In this 52-year-old woman who presented with multiple complex medical issues presented with chest pain. Myocardial infarction ruled out. Cardiology recommended outpatient stress test. Blood pressure is controlled. I recommend the patient to be discharged home. Resume the home medications and abstain from alcohol and smoking and outpatient stress test. Otherwise, see orders for details. Prognosis guarded. Further recommendations to follow. . TAWNYA / ELIASN: [id number] / MTDD
== END 2017-12-30 14:14 | disposition home or self-care (01) ==
LOC: EC 17:25 → 3OBS 20:16
PROVIDERS: ADMIT Family Medicine; ATTEND Family Medicine
DX: R07.89 Other chest pain (principal); I11.9 Hypertensive heart disease without heart failure; K21.9 Gastro-esophageal reflux disease without esophagitis; J45.909 Unspecified asthma, uncomplicated; M19.90 Unspecified osteoarthritis, unspecified site; E07.9 Disorder of thyroid, unspecified; G89.29 Other chronic pain; M54.9 Dorsalgia, unspecified; D64.9 Anemia, unspecified; F90.9 Attention-deficit hyperactivity disorder, unspecified type; F43.10 Post-traumatic stress disorder, unspecified; F41.0 Panic disorder [episodic paroxysmal anxiety]; F20.9 Schizophrenia, unspecified; F31.9 Bipolar disorder, unspecified; F41.9 Anxiety disorder, unspecified; Z72.89 Other problems related to lifestyle; F17.200 Nicotine dependence, unspecified, uncomplicated; Z79.82 Long term (current) use of aspirin; Z79.891 Long term (current) use of opiate analgesic; Z79.899 Other long term (current) drug therapy; Z90.49 Acquired absence of other specified parts of digestive tract; Z90.89 Acquired absence of other organs; Z98.51 Tubal ligation status; Z82.49 Family history of ischemic heart disease and other diseases of the circulatory system; Z80.9 Family history of malignant neoplasm, unspecified; Z83.2 Family history of diseases of the blood and blood-forming organs and certain disorders involving the immune mechanism
CPT/HCPCS: 99285 ×2; 36415; 93005; 85379; 80061; 80053; 82550 ×2; 82553 ×2; 83735; 84484 ×2; 85025; 85610; 85730; 71046; G0378 ×2

== ENCOUNTER 2018-01-06 18:19 | Emergency (ER) | payer OTHER ==
[2018-01-06 18:28] VITALS: BP 187/124; PULSE 85; RESP 18; TEMP 98.4
--- NOTE | 2018-01-06 18:54 | ED ---
Skin/Abscess/FB HPI - General Chief complaint: Skin/Abscess/Foreign Body Stated complaint: Rash, Itchy Time Seen by Provider: 01/06/18 18:31 Source: patient, RN notes reviewed Mode of arrival: ambulatory Limitations: no limitations - History of Present Illness Initial comments: This is a pleasant 52-year-old female presents emergency department complaining of a rash on bilateral lower extremities. Patient states that she has had that there for several months. Patient states that she believes she saw a logging engineer, Dr. Lott, had a biopsy and was diagnosed with lichen planus. Patient presents complaining of ongoing and worsening itching. Patient states that there really was no treatment done at the time of diagnosis. Patient states that she did not have any corticosteroids or intralesional injections. Patient denies shortness breath or chest pain. No fever or chills. No skin rash elsewhere. - Related Data Home Medications Medication Instructions Recorded Confirmed HYDROcodone/APAP 10-325MG [[place] 1 tab PO TID 05/23/14 12/29/17 10-325] clonazePAM [KlonoPIN] 1 mg PO TID 05/23/14 12/29/17 Albuterol Inhaler [Ventolin Hfa 2 puff INHALATION RT-Q4H PRN 09/09/14 12/29/17 Inhaler] Aspirin EC [Ecotrin Low Dose] 81 mg PO DAILY 12/29/17 12/29/17 Betamethasone Dipropionate 1 applic TOPICAL DAILY PRN 12/29/17 12/29/17 [Betamethasone Dipropionate 0.05%] Multivitamin,Therapeutic [Thera] 1 tab PO DAILY 12/29/17 12/29/17 Omeprazole 20 mg PO DAILY 12/29/17 12/29/17 cloNIDine HCL [Catapres] 0.1 mg PO DAILY 12/29/17 12/29/17 Previous Rx's Medication Instructions Recorded Atenolol 25 mg PO DAILY #30 tablet 09/07/17 Acetaminophen Tab [Tylenol Tab] 500 mg PO Q6H PRN #30 tablet 12/30/17 predniSONE 50 mg PO DAILY #6 tab 01/06/18 Allergies Allergy/AdvReac Type Severity Reaction Status Date / Time No Known Allergies Allergy Verified 01/06/18 18:27 Review of Systems ROS Statement: Those systems with pertinent positive or pertinent negative responses have been documented in the HPI. ROS Other: All systems not noted in ROS Statement are negative. Past Medical History Past Medical History: Asthma, GERD/Reflux, Hypertension, Osteoarthritis (OA), Thyroid Disorder Additional Past Medical History / Comment(s): Anemia, chronic back pain see Dr. Polo for pain specialist History of Any Multi-Drug Resistant Organisms: None Reported Past Surgical History: Appendectomy, Cholecystectomy, Tubal Ligation Additional Past Surgical History / Comment(s): Lipoma removed from left shoulder Past Anesthesia/Blood Transfusion Reactions: No Reported Reaction Past Psychological History: ADD/ADHD, Anxiety, Bipolar, Depression, Panic Disorder, PTSD, Schizophrenia Smoking Status: Current every day smoker Past Alcohol Use History: Occasional Past Drug Use History: Marijuana - Past Family History Father Family Medical History: Myocardial Infarction (ID) Mother Family Medical History: AFIB Sister(s) Family Medical History: Cancer, Deep Vein Thrombosis (DVT) General Exam - General Exam Comments Initial Comments: Well-developed, well-nourished 52-year-old female in no distress Limitations: no limitations General appearance: alert, in no apparent distress Head exam: Present: atraumatic, normocephalic, normal inspection Eye exam: Present: normal appearance, EOMI ENT exam: Present: normal exam Neck exam: Present: normal inspection Respiratory exam: Present: normal lung sounds bilaterally. Absent: respiratory distress, wheezes, rales, rhonchi, stridor Cardiovascular Exam: Present: regular rate, normal rhythm, normal heart sounds. Absent: systolic murmur, diastolic murmur, rubs, gallop, clicks Extremities exam: Present: full ROM, other (Patient has multiple plaque-like areas on both lower legs with excoriations. No evidence of secondary infection. No evidence of abscess or cellulitis. No drainage. Pedal pulses are 2+ out of 4. Capillary refills less than 2 seconds.). Absent: tenderness Back exam: Present: normal inspection Neurological exam: Present: alert, oriented X3, CN II-XII intact Course Vital Signs 01/06/18 18:24 Temperature 98.4 F Pulse Rate 85 Respiratory 18 Rate Blood Pressure 187/124 O2 Sat by Pulse 98 Oximetry Medical Decision Making - Medical Decision Making Patient presents with itching secondary to chronic skin condition, like complaint is. Patient has no evidence of infectious process. Patient was told to follow-up with dermatology. Return and follow-up parameters discussed. Smoking cessation discussed. Disposition Clinical Impression: Dermatitis, Lichen planus, unspecified Disposition: HOME SELF-CARE Condition: Stable Instructions: Dermatitis (ED) Additional Instructions: Ensure that you follow-up with the logging engineer as discussed. Return to the ER if any problems or difficulties arise or if the symptoms worsen. Prescriptions: predniSONE 50 mg PO DAILY #6 tab Is patient prescribed a controlled substance at d/c from ED?: No Referrals: Catracho Lott MD [STAFF PHYSICIAN] - 1-2 days
== END 2018-01-06 18:56 | disposition home or self-care (01) ==
LOC: EC 18:19
DX: L30.9 Dermatitis, unspecified (principal); L43.9 Lichen planus, unspecified; J45.909 Unspecified asthma, uncomplicated; K21.9 Gastro-esophageal reflux disease without esophagitis; I10 Essential (primary) hypertension; M19.90 Unspecified osteoarthritis, unspecified site; F17.200 Nicotine dependence, unspecified, uncomplicated; Z79.891 Long term (current) use of opiate analgesic; Z79.82 Long term (current) use of aspirin; Z79.899 Other long term (current) drug therapy
CPT/HCPCS: 99282

== ENCOUNTER → 2020-08-03 | Outpatient (CLI) | payer OTHER ==
--- NOTE | 2020-08-03 11:03 | MR ---
EXAMINATION TYPE: MR lumbar spine wo con DATE OF EXAM: 08/03/2020 COMPARISON: 02/24/2000 HISTORY: Low back pain and Radiculopathy TECHNIQUE: T1 and T2 axial and sagittal images of the lumbar spine are submitted. FINDINGS: There is no abnormal signal seen within the visualized spinal cord or paraspinal soft tissu es. The curvature of the spine with severe degenerative disc disease L2-L3 and moderate changes at L1 -L2. Mild to moderate remaining disc disease at the remaining levels. At L1-2 there is a broad-based central and right paracentral disc bulging with minimal effacement of thecal sac but no discrete herniation or canal stenosis mild hypertrophic change of the facets. Neura l foramina remain patent. At L2-3 there is diffuse circumferential disc bulging but no focal herniation or canal stenosis. Hype rtrophic change of the facets. No significant foraminal encroachment. At L3-4 there is circumferential disc bulging but no focal herniation or canal stenosis. Hypertrophic change of the facets and ligamentum flavum. Neural foramina patent. At L4-5 there is grade 1 anterolisthesis with advanced facet arthropathy. Broad-based disc bulging or protrusion with mild to moderate central stenosis and bilateral foraminal encroachment At L5-S1 there is a broad-based right paracentral disc herniation with effacement of thecal sac and s uggestion of mass effect upon the exiting right nerve root. There is facet arthropathy. Neural forami na remain patent. IMPRESSION: 1. Moderate-sized focal right paracentral disc herniation L5-S1 with effacement of thecal sac and sug gestion mass effect upon the exiting nerve root. 2. Grade 1 anterolisthesis L4 and L5 with advanced facet arthropathy. Broad-based disc protrusion wit h hypertrophic changes result in mild to moderate canal stenosis and foraminal encroachment. 3. Multilevel degenerative disc disease with scoliotic curvature. Most marked at L1-2 and L2-3. EXAMINATION TYPE: MR thoracic spine wo con DATE OF EXAM: 08/03/2020 COMPARISON: None HISTORY: Low back pain and Radiculopathy Standard multiplanar, multisequence MRI departmental protocol Multiplanar, multisequence images of the thoracic spine were acquired. FINDINGS: There is curvature scoliosis thoracic spine multilevel degenerative disc disease. Incidental note mad e of significant degenerative disc disease involving the mid and lower cervical spine. Spinal cord has a normal signal pattern. No definitive disc herniation or canal stenosis. Minimal disc bulging paracentrally the right T3-T4. Neural foramina remain patent. No Canal stenosis. Paraspinal soft tissues demonstrate no abnormal sig nal. IMPRESSION: Scoliosis with multilevel degenerative disc disease but no discrete herniation or canal stenosis. No foraminal encroachment. Minimal right paracentral disc bulging T3-T4. Significant degenerative disc disease mid and lower cervical spine incidentally noted.
== END | disposition home or self-care (01) ==
LOC: RADMRIMAIN 09:26
PROVIDERS: ATTEND Nurse Practitioner
DX: M48.061 Spinal stenosis, lumbar region without neurogenic claudication (principal); M43.16 Spondylolisthesis, lumbar region; M51.27 Other intervertebral disc displacement, lumbosacral region; M51.14 Intervertebral disc disorders with radiculopathy, thoracic region; M51.36 Other intervertebral disc degeneration, lumbar region; M47.816 Spondylosis without myelopathy or radiculopathy, lumbar region; M41.84 Other forms of scoliosis, thoracic region; M41.86 Other forms of scoliosis, lumbar region
CPT/HCPCS: 72146; 72148

== ENCOUNTER 2020-09-14 01:58 | Emergency (ER) | payer OTHER ==
[2020-09-14] MEDS ORDERED: ONDANSETRON 4 MG/2 ML VIAL IVP STA (02:15)
[2020-09-14] MEDS ORDERED: PANTOPRAZOLE 40 MG/10 ML VIAL IVP STA (02:15)
[2020-09-14] MEDS ORDERED: SODIUM CHLORIDE 0.9% 1,000 ML IV STA (02:15)
[2020-09-14] MEDS ORDERED: LORazepam 2 MG/ML INJ IV STA ×2 (02:16→02:18)
--- NOTE | 2020-09-14 02:18 | ED ---
Weakness HPI - General Chief complaint: GI Bleed Stated complaint: Blood in stool Time Seen by Provider: 09/14/20 02:05 Source: patient Mode of arrival: ambulatory Limitations: no limitations - Related Data Home Medications Medication Instructions Recorded Confirmed HYDROcodone/APAP 10-325MG [[place] 1 tab PO TID 05/23/14 12/29/17 10-325] clonazePAM [KlonoPIN] 1 mg PO TID 05/23/14 12/29/17 Albuterol Inhaler (Mhu) [Ventolin 2 puff INHALATION RT-Q4H PRN 09/09/14 12/29/17 Hfa Inhaler (Mhu)] Aspirin EC [Ecotrin Low Dose] 81 mg PO DAILY 12/29/17 12/29/17 Betamethasone Dipropionate 1 applic TOPICAL DAILY PRN 12/29/17 12/29/17 [Betamethasone Dipropionate 0.05%] Multivitamin,Therapeutic [Thera] 1 tab PO DAILY 12/29/17 12/29/17 Omeprazole 20 mg PO DAILY 12/29/17 12/29/17 cloNIDine HCL [Catapres] 0.1 mg PO DAILY 12/29/17 12/29/17 Previous Rx's Medication Instructions Recorded atenoloL [Atenolol] 25 mg PO DAILY #30 tablet 09/07/17 Acetaminophen Tab [Tylenol Tab] 500 mg PO Q6H PRN #30 tablet 12/30/17 predniSONE 50 mg PO DAILY #6 tab 01/06/18 Allergies Allergy/AdvReac Type Severity Reaction Status Date / Time No Known Allergies Allergy Verified 09/14/20 02:03 Review of Systems ROS Statement: Those systems with pertinent positive or pertinent negative responses have been documented in the HPI. ROS Other: All systems not noted in ROS Statement are negative. Past Medical History Past Medical History: Asthma, GERD/Reflux, Hypertension, Osteoarthritis (OA), Thyroid Disorder Additional Past Medical History / Comment(s): Anemia, chronic back pain see Dr. Polo for pain specialist History of Any Multi-Drug Resistant Organisms: None Reported Past Surgical History: Appendectomy, Cholecystectomy, Tubal Ligation Additional Past Surgical History / Comment(s): Lipoma removed from left shoulder Past Anesthesia/Blood Transfusion Reactions: No Reported Reaction Past Psychological History: ADD/ADHD, Anxiety, Bipolar, Depression, Panic Disorder, PTSD, Schizophrenia Smoking Status: Current every day smoker Past Alcohol Use History: Occasional Past Drug Use History: Marijuana - Past Family History Father Family Medical History: Myocardial Infarction ([place]) Mother Family Medical History: AFIB Sister(s) Family Medical History: Cancer, Deep Vein Thrombosis (DVT) General Exam Limitations: no limitations Course Vital Signs 09/14/20 01:58 Temperature 97.6 F Pulse Rate 118 H Respiratory 20 Rate Blood Pressure 181/118 O2 Sat by Pulse 100 Oximetry Medical Decision Making - Lab Data Result diagrams: 09/14/20 02:26 09/14/20 02:26 Lab Results 09/14/20 09/14/20 09/14/20 Range/Units 02:26 02:26 02:26 WBC 6.3 (3.8-10.6) k/uL RBC 4.53 (3.80-5.40) m/uL Hgb 12.7 (11.4-16.0) gm/dL Hct 39.5 (34.0-46.0) % MCV 87.2 (80.0-100.0) fL MCH 28.0 (25.0-35.0) pg MCHC 32.0 (31.0-37.0) g/dL RDW 15.4 (11.5-15.5) % Plt Count 283 (150-450) k/uL MPV 6.9 Neutrophils % 58 % Lymphocytes % 33 % Monocytes % 4 % Eosinophils % 3 % Basophils % 1 % Neutrophils # 3.6 (1.3-7.7) k/uL Lymphocytes # 2.1 (1.0-4.8) k/uL Monocytes # 0.3 (0-1.0) k/uL Eosinophils # 0.2 (0-0.7) k/uL Basophils # 0.0 (0-0.2) k/uL PT 9.6 (9.0-12.0) sec INR 0.9 (<1.2) APTT 23.7 (22.0-30.0) sec Sodium 141 (137-145) mmol/L Potassium 3.7 (3.5-5.1) mmol/L Chloride 110 H (98-107) mmol/L Carbon Dioxide 23 (22-30) mmol/L Anion Gap 8 mmol/L BUN 15 (7-17) mg/dL Creatinine 0.72 (0.52-1.04) mg/dL Est GFR (CKD-EPI)AfAm >90 (>60 ml/min/1.73 sqM) Est GFR (CKD-EPI)NonAf >90 (>60 ml/min/1.73 sqM) Glucose 101 H (74-99) mg/dL Calcium 9.3 (8.4-10.2) mg/dL Phosphorus 3.7 (2.5-4.5) mg/dL Magnesium 1.9 (1.6-2.3) mg/dL Total Bilirubin 0.3 (0.2-1.3) mg/dL AST 25 (14-36) U/L ALT 25 (4-34) U/L Alkaline Phosphatase 86 (38-126) U/L Creatine Kinase 101 (30-135) U/L Troponin I (0.000-0.034) ng/mL Total Protein 7.5 (6.3-8.2) g/dL Albumin 4.5 (3.5-5.0) g/dL TSH 1.660 (0.465-4.680) mIU/L Coronavirus (PCR) (Not Detectd) 09/14/20 09/14/20 Range/Units 02:26 03:17 WBC (3.8-10.6) k/uL RBC (3.80-5.40) m/uL Hgb (11.4-16.0) gm/dL Hct (34.0-46.0) % MCV (80.0-100.0) fL MCH (25.0-35.0) pg MCHC (31.0-37.0) g/dL RDW (11.5-15.5) % Plt Count (150-450) k/uL MPV Neutrophils % % Lymphocytes % % Monocytes % % Eosinophils % % Basophils % % Neutrophils # (1.3-7.7) k/uL Lymphocytes # (1.0-4.8) k/uL Monocytes # (0-1.0) k/uL Eosinophils # (0-0.7) k/uL Basophils # (0-0.2) k/uL PT (9.0-12.0) sec INR (<1.2) APTT (22.0-30.0) sec Sodium (137-145) mmol/L Potassium (3.5-5.1) mmol/L Chloride (98-107) mmol/L Carbon Dioxide (22-30) mmol/L Anion Gap mmol/L BUN (7-17) mg/dL Creatinine (0.52-1.04) mg/dL Est GFR (CKD-EPI)AfAm (>60 ml/min/1.73 sqM) Est GFR (CKD-EPI)NonAf (>60 ml/min/1.73 sqM) Glucose (74-99) mg/dL Calcium (8.4-10.2) mg/dL Phosphorus (2.5-4.5) mg/dL Magnesium (1.6-2.3) mg/dL Total Bilirubin (0.2-1.3) mg/dL AST (14-36) U/L ALT (4-34) U/L Alkaline Phosphatase (38-126) U/L Creatine Kinase (30-135) U/L Troponin I <0.012 (0.000-0.034) ng/mL Total Protein (6.3-8.2) g/dL Albumin (3.5-5.0) g/dL TSH (0.465-4.680) mIU/L Coronavirus (PCR) Not Detected (Not Detectd) Disposition Clinical Impression: Gastrointestinal hemorrhage Disposition: HOME SELF-CARE Condition: Good Instructions (If sedation given, give patient instructions): Gastrointestinal Bleeding (ED) Is patient prescribed a controlled substance at d/c from ED?: No Referrals: Riley Govea MD [Primary Care Provider] - 1-2 days
[2020-09-14 02:53] LABS: Basophils % (A) 1 %; Eosinophils # (A) 0.2 k/uL (0-0.7); Eosinophils % (A) 3 %; HCT 39.5 % (34.0-46.0); HGB 12.7 gm/dL (11.4-16.0); Lymphocytes # (A) 2.1 k/uL (1.0-4.8); Lymphocytes % (A) 33 %; MCV 87.2 fL (80.0-100.0); Mean Platelet Volume 6.9; Monocytes # (A) 0.3 k/uL (0-1.0); Monocytes % (A) 4 %; Neutrophils # (A) 3.6 k/uL (1.3-7.7); Neutrophils % (A) 58 %; Platelet Count 283 k/uL (150-450); RBC 4.53 m/uL (3.80-5.40); RDW 15.4 % (11.5-15.5); WBC 6.3 k/uL (3.8-10.6)
[2020-09-14 03:05] LABS: ALT 25 U/L (4-34); AST 25 U/L (14-36); African American GFR (CKD) >90 (>60 ml/min/1.73 sqM); Albumin 4.5 g/dL (3.5-5.0); Alkaline Phosphatase 86 U/L (38-126); Anion Gap 8 mmol/L; Blood Urea Nitrogen 15 mg/dL (7-17); Calcium 9.3 mg/dL (8.4-10.2); Carbon Dioxide 23 mmol/L (22-30); Chloride 110 mmol/L (98-107); Creatine Kinase 101 U/L (30-135); Glucose 101 mg/dL (74-99); Magnesium 1.9 mg/dL (1.6-2.3); Non-African American GFR(CKD) >90 (>60 ml/min/1.73 sqM); Phosphorus 3.7 mg/dL (2.5-4.5); Potassium 3.7 mmol/L (3.5-5.1); Sodium 141 mmol/L (137-145); Total Bilirubin 0.3 mg/dL (0.2-1.3); Total Protein 7.5 g/dL (6.3-8.2)
[2020-09-14 03:15] LABS: INR 0.9 (<1.2); Partial Thromboplastin Time 23.7 sec (22.0-30.0); Prothrombin Time 9.6 sec (9.0-12.0)
[2020-09-14 03:59] VITALS: BP 170/99; PULSE 70; RESP 16; TEMP 97.9
== END 2020-09-14 04:31 | disposition home or self-care (01) ==
LOC: EC 01:58
DX: K92.2 Gastrointestinal hemorrhage, unspecified (principal); J45.909 Unspecified asthma, uncomplicated; K21.9 Gastro-esophageal reflux disease without esophagitis; I10 Essential (primary) hypertension; M19.90 Unspecified osteoarthritis, unspecified site; F17.200 Nicotine dependence, unspecified, uncomplicated
CPT/HCPCS: 99284; 36415; 86900; 86901; 80053; 84443; 82550; 83735; 84100; 84484; 85025; 85610; 85730; 86850; 87635; 96374; 96375 ×2; 96361; J2060; J2405; C9113

== ENCOUNTER 2020-10-15 16:21 | Emergency (ER) | payer OTHER ==
[2020-10-15] MEDS ORDERED: methylPREDNISolone SOD SUCCI 125 MG/2 ML VIAL IV STA (17:31)
[2020-10-15] MEDS ORDERED: IPRATROPIUM-ALBUTEROL 3 ML NEB INHALATION STA (17:31)
--- NOTE | 2020-10-15 17:46 | ED ---
SOB HPI - General Chief Complaint: Shortness of Breath Stated Complaint: VY Time Seen by Provider: 10/15/20 17:09 Source: patient Mode of arrival: ambulatory Limitations: no limitations - History of Present Illness Initial Comments: This 55-year-old female with history of asthma and current smoker who presents emergency department for cough and shortness of breath. She states that the symptoms been going on for last couple of days. She states that the cough is nonproductive. She's had no associated fevers or chills. No chest pains. She states that she does have an inhaler at home which did seem to improve her symptoms however she was concerned that she was getting some type of infection. She states that she's taking a trip to [facility] soon and one to make sure that she was better before she left for her trip. She thinks that it's her asthma is acting up. She denies any lower extremity pain or swelling. No abdominal pain, nausea, vomiting, or diarrhea. She denies any other acute complaints. - Related Data Home Medications Medication Instructions Recorded Confirmed Omeprazole 20 mg PO DAILY 12/29/17 10/15/20 cloNIDine HCL [Catapres] 0.1 mg PO DAILY 12/29/17 10/15/20 Albuterol Sulfate [Proair Hfa] 2 puff INHALATION RT-QID PRN 10/15/20 10/15/20 Fluticasone Nasal [place] [Flonase 2 spr EA NOSTRIL DAILY 10/15/20 10/15/20 Nasal [place]] Fluticasone/Vilanterol [Breo 1 puff INHALATION RT-DAILY 10/15/20 10/15/20 Ellipta 100-25 Mcg Inhaler] amLODIPine [Norvasc] 10 mg PO DAILY 10/15/20 10/15/20 clonazePAM [KlonoPIN] 0.5 mg PO DAILY 10/15/20 10/15/20 Previous Rx's Medication Instructions Recorded atenoloL [Atenolol] 25 mg PO DAILY #30 tablet 09/07/17 Albuterol Inhaler [Ventolin Hfa 1 puff INHALATION RT-QID PRN #1 10/15/20 Inhaler] inhaler Doxycycline [Vibramycin] 100 mg PO BID 5 Days #10 capsule 10/15/20 predniSONE 50 mg PO DAILY 5 Days #5 tab 10/15/20 Allergies Allergy/AdvReac Type Severity Reaction Status Date / Time No Known Allergies Allergy Verified 10/15/20 18:31 Review of Systems ROS Statement: Those systems with pertinent positive or pertinent negative responses have been documented in the HPI. ROS Other: All systems not noted in ROS Statement are negative. Past Medical History Past Medical History: Asthma, COPD, GERD/Reflux, Hypertension, Osteoarthritis (OA), Thyroid Disorder Additional Past Medical History / Comment(s): Anemia, chronic back pain see Dr. Polo for pain specialist History of Any Multi-Drug Resistant Organisms: None Reported Past Surgical History: Appendectomy, Cholecystectomy, Tubal Ligation Additional Past Surgical History / Comment(s): Lipoma removed from left shoulder Past Anesthesia/Blood Transfusion Reactions: No Reported Reaction Past Psychological History: ADD/ADHD, Anxiety, Bipolar, Depression, Panic Disorder, PTSD, Schizophrenia Smoking Status: Current every day smoker Past Alcohol Use History: Occasional Past Drug Use History: Marijuana - Past Family History Father Family Medical History: Myocardial Infarction ([place]) Mother Family Medical History: AFIB Sister(s) Family Medical History: Cancer, Deep Vein Thrombosis (DVT) General Exam - General Exam Comments Initial Comments: Constitutional: Awake alert Appears comfortable Head: Normocephalic atraumatic Eyes: no conjunctival injection No scleral icterus EOMI Neck: No JVD Supple Heart: Regular rate rhythm normal S1-S2 no murmurs Lungs: Diminished breath sounds bilaterally and sound coarse No wheezing No rales Abdomen: Soft nondistended nontender Extremities: Non edematous DP pulses intact Radial pulses intact Neuro: A&Ox3 No focal neurologic deficits Psych: Appropriate mood and affect Limitations: no limitations Course Vital Signs 10/15/20 10/15/20 10/15/20 16:50 18:16 18:23 Temperature 97.7 F Pulse Rate 91 91 92 Respiratory 22 Rate Blood Pressure 148/108 O2 Sat by Pulse 98 Oximetry 10/15/20 10/15/20 19:35 19:37 Temperature 97.6 F Pulse Rate Respiratory 18 Rate Blood Pressure 163/118 163/118 O2 Sat by Pulse Oximetry - Reevaluation(s) Reevaluation #1: EKG showing a sinus rhythm with a rate of 73. No abnormal ST segment changes or T-wave inversions. QTC is 453. Other intervals normal. No ectopy. 10/15/20 17:46 Medical Decision Making - Medical Decision Making This 55-year-old female who presents emergency department for cough and shortness of breath. Patient chest x-ray performed which is unremarkable. Blood work is unremarkable. She was given a DuoNeb treatment and slight Medrol with improvement in her symptoms. I feel that the patient's likely suffering from asthma exacerbation or COPD exacerbation. We'll place her on albuterol, prednisone, and doxycycline. Told to return if she has worsening symptoms such as worsening shortness of breath, cough, fever, chills, or any other concerning symptoms. All questions answered. - Lab Data Result diagrams: 10/15/20 17:50 10/15/20 17:50 Lab Results 10/15/20 10/15/20 Range/Units 17:50 17:50 WBC 6.0 (3.8-10.6) k/uL RBC 4.38 (3.80-5.40) m/uL Hgb 13.0 (11.4-16.0) gm/dL Hct 38.3 (34.0-46.0) % MCV 87.3 (80.0-100.0) fL MCH 29.8 (25.0-35.0) pg MCHC 34.1 (31.0-37.0) g/dL RDW 14.9 (11.5-15.5) % Plt Count 237 (150-450) k/uL MPV 7.1 Neutrophils % 63 % Lymphocytes % 28 % Monocytes % 4 % Eosinophils % 3 % Basophils % 1 % Neutrophils # 3.8 (1.3-7.7) k/uL Lymphocytes # 1.6 (1.0-4.8) k/uL Monocytes # 0.3 (0-1.0) k/uL Eosinophils # 0.2 (0-0.7) k/uL Basophils # 0.0 (0-0.2) k/uL Sodium 141 (137-145) mmol/L Potassium 4.0 (3.5-5.1) mmol/L Chloride 110 H (98-107) mmol/L Carbon Dioxide 25 (22-30) mmol/L Anion Gap 6 mmol/L BUN 24 H (7-17) mg/dL Creatinine 0.83 (0.52-1.04) mg/dL Est GFR (CKD-EPI)AfAm >90 (>60 ml/min/1.73 sqM) Est GFR (CKD-EPI)NonAf 79 (>60 ml/min/1.73 sqM) Glucose 101 H (74-99) mg/dL Calcium 9.5 (8.4-10.2) mg/dL Disposition Clinical Impression: Bronchitis Disposition: HOME SELF-CARE Condition: Stable Instructions (If sedation given, give patient instructions): Acute Bronchitis (ED) Prescriptions: predniSONE 50 mg PO DAILY 5 Days #5 tab Albuterol Inhaler [Ventolin Hfa Inhaler] 1 puff INHALATION RT-QID PRN #1 inhaler PRN Reason: Shortness Of Breath Doxycycline [Vibramycin] 100 mg PO BID 5 Days #10 capsule Is patient prescribed a controlled substance at d/c from ED?: No Referrals: Riley Govea MD [Primary Care Provider] - 1-2 days
[2020-10-15 18:20] LABS: Basophils % (A) 1 %; Eosinophils # (A) 0.2 k/uL (0-0.7); Eosinophils % (A) 3 %; HCT 38.3 % (34.0-46.0); Lymphocytes # (A) 1.6 k/uL (1.0-4.8); Lymphocytes % (A) 28 %; MCH 29.8 pg (25.0-35.0); MCHC 34.1 g/dL (31.0-37.0); MCV 87.3 fL (80.0-100.0); Mean Platelet Volume 7.1; Monocytes # (A) 0.3 k/uL (0-1.0); Monocytes % (A) 4 %; Neutrophils # (A) 3.8 k/uL (1.3-7.7); Neutrophils % (A) 63 %; Platelet Count 237 k/uL (150-450); RBC 4.38 m/uL (3.80-5.40); RDW 14.9 % (11.5-15.5)
[2020-10-15 18:23] VITALS: PULSE 92
[2020-10-15 18:35] LABS: African American GFR (CKD) >90 (>60 ml/min/1.73 sqM); Anion Gap 6 mmol/L; Blood Urea Nitrogen 24 mg/dL (7-17); Calcium 9.5 mg/dL (8.4-10.2); Carbon Dioxide 25 mmol/L (22-30); Chloride 110 mmol/L (98-107); Glucose 101 mg/dL (74-99); Non-African American GFR(CKD) 79 (>60 ml/min/1.73 sqM); Sodium 141 mmol/L (137-145)
--- NOTE | 2020-10-15 19:05 | XR ---
EXAMINATION: XR chest 2V DATE AND TIME: 10/15/2020 6:05 PM CLINICAL INDICATION: cough, chest pain TECHNIQUE: Departmental protocol COMPARISON: 12/29/2017 FINDINGS: The lungs are clear. The pleural spaces are negative. The cardiac silhouette is not enlarged. Aortic tortuosity redemonstrated. The skeletal structures and soft tissues are negative for acute findings. Dextrocurvature of the thor acic spine redemonstrated. IMPRESSION: No acute radiographic process.
[2020-10-15 19:38] VITALS: BP 163/118
[2020-10-15 19:39] VITALS: RESP 18; TEMP 97.6
== END 2020-10-15 19:39 | disposition home or self-care (01) ==
LOC: EC 16:21
DX: J44.9 Chronic obstructive pulmonary disease, unspecified (principal); I10 Essential (primary) hypertension; M19.90 Unspecified osteoarthritis, unspecified site; K21.9 Gastro-esophageal reflux disease without esophagitis; F31.9 Bipolar disorder, unspecified; F41.9 Anxiety disorder, unspecified; F20.9 Schizophrenia, unspecified; F90.9 Attention-deficit hyperactivity disorder, unspecified type; F17.200 Nicotine dependence, unspecified, uncomplicated; F12.90 Cannabis use, unspecified, uncomplicated; Z79.52 Long term (current) use of systemic steroids; Z79.51 Long term (current) use of inhaled steroids; Z79.899 Other long term (current) drug therapy; Z82.49 Family history of ischemic heart disease and other diseases of the circulatory system
CPT/HCPCS: 96374 ×2; 99285 ×2; 36415; 94640; 93005; 80048; 85025; 71046; J2930

== ENCOUNTER → 2021-01-21 | Outpatient (CLI) | payer OTHER | END | disposition home or self-care (01) | LOC: LABWHC1 14:00 | PROVIDERS: ATTEND Family Medicine | DX: Z20.822 Contact with and (suspected) exposure to COVID-19 (principal); J06.9 Acute upper respiratory infection, unspecified | CPT/HCPCS: 87502; U0003; U0005 ==

== ENCOUNTER → 2021-02-04 | Outpatient (CLI) | payer OTHER ==
--- NOTE | 2021-02-05 11:20 | MM ---
Reason for exam: screening (asymptomatic). Last mammogram was performed 2 years and 10 months ago. History: Patient is postmenopausal. Benign US RT VAD breast biopsy of the right breast, July 07, 2011. Benign US left guided mammotome of the left breast, August 06, 2007. Benign US right guided mammotome of the right breast, August 06, 2007. Excisional biopsy of the right breast, 1989. Took hormonal contraceptives for 2 years 6 months. Physical Findings: A clinical breast exam by your physician is recommended on an annual basis and results should be correlated with mammographic findings. MG Screening Mammo w CAD Bilateral CC and MLO view(s) were taken. Prior study comparison: March 22, 2018, bilateral MG screening mammo w CAD. February 09, 2017, bilateral MG screening mammo w CAD. There are scattered fibroglandular densities. Previous mammotome biopsy in the right and left breast. There is chronic nodularity in the right breast. There is no discrete abnormality. ASSESSMENT: Benign, BI-RAD 2 RECOMMENDATION: Routine screening mammogram of both breasts in 1 year.
== END | disposition home or self-care (01) ==
LOC: RADMAMWWP 12:52
PROVIDERS: ATTEND Family Medicine
DX: Z12.31 Encounter for screening mammogram for malignant neoplasm of breast (principal); Z78.0 Asymptomatic menopausal state
CPT/HCPCS: 77067

== ENCOUNTER 2021-02-06 16:12 | Emergency (ER) | payer OTHER ==
[2021-02-06 16:24] VITALS: RESP 20; TEMP 98.3
[2021-02-06] MEDS ORDERED: ALBUTEROL HFA INHALER INHALATION STA (17:15)
[2021-02-06] MEDS ORDERED: predniSONE 20 MG TAB PO STA (17:15)
[2021-02-06] MEDS ORDERED: IPRATROPIUM-ALBUTEROL 3 ML NEB INHALATION STA (17:15)
[2021-02-06] MEDS ORDERED: hydrALAZINE HCL 20 MG/ML 1 ML VIAL IM STA (17:17)
--- NOTE | 2021-02-06 17:33 | ED ---
General Adult HPI - General Chief complaint: Shortness of Breath Stated complaint: asthma, wheezing Time Seen by Provider: 02/06/21 16:38 Source: patient, RN notes reviewed, old records reviewed Mode of arrival: ambulatory Limitations: no limitations - History of Present Illness Initial comments: Patient was evaluated when she was placed in a room. Patient is a 55-year-old female with past medical history remarkable for asthma, COPD, thyroid disorder, hypertension presents emergency Department complaining of persistent upper respiratory symptoms for the last 2-3 weeks. She states she has a history of bad asthma and has been treated for asthma with steroids as well as her multiple inhalers at home by her PCP without much improvement in symptoms. She endorses wheezing, as well as a productive cough of typical mucus that is white for her. She was treated with an antibiotic when symptoms first started with minimal improvement. She denies any fevers, sick contacts. She was vaccinated for COVID-19. Was tested for Covid and flu 2 weeks ago and was negative. She denies any chest pain, shortness of breath, abdominal pain, nausea, vomiting. Denies any headache, weakness, numbness. She has no other acute complaints at this time other than the upper respiratory illness symptoms of mild rhinorrhea, cough, wheezing and concern for an asthma exacerbation. She presents for reevaluation at this time. - Related Data Home Medications Medication Instructions Recorded Confirmed Omeprazole 20 mg PO DAILY 12/29/17 10/15/20 cloNIDine HCL [Catapres] 0.1 mg PO DAILY 12/29/17 10/15/20 Albuterol Sulfate [Proair Hfa] 2 puff INHALATION RT-QID PRN 10/15/20 10/15/20 Fluticasone Nasal [place] [Flonase 2 spr EA NOSTRIL DAILY 10/15/20 10/15/20 Nasal [place]] Fluticasone/Vilanterol [Breo 1 puff INHALATION RT-DAILY 10/15/20 10/15/20 Ellipta 100-25 Mcg Inhaler] amLODIPine [Norvasc] 10 mg PO DAILY 10/15/20 10/15/20 clonazePAM [KlonoPIN] 0.5 mg PO DAILY 10/15/20 10/15/20 Previous Rx's Medication Instructions Recorded atenoloL 25 mg PO DAILY #30 tablet 09/07/17 Albuterol Inhaler [Ventolin Hfa 1 puff INHALATION RT-QID PRN #1 10/15/20 Inhaler] inhaler Doxycycline [Vibramycin] 100 mg PO BID 5 Days #10 capsule 10/15/20 predniSONE 50 mg PO DAILY 5 Days #5 tab 10/15/20 Albuterol Inhaler [Ventolin Hfa 1 puff INHALATION RT-QID #8 gm 02/06/21 Inhaler] Doxycycline Hyclate [Vibramycin] 100 mg PO BID 7 Days #14 cap 02/06/21 predniSONE [Deltasone] 40 mg PO DAILY 5 Days #10 tab 02/06/21 Allergies Allergy/AdvReac Type Severity Reaction Status Date / Time No Known Allergies Allergy Verified 02/06/21 16:24 Review of Systems ROS Statement: Those systems with pertinent positive or pertinent negative responses have been documented in the HPI. Review of Systems: CONST: Denies fever EYES: Denies blurry vision ENT: Denies nasal congestion C/V: Denies Chest pain RESP: Endorses cough, wheezing GI: Denies abdominal pain : Denies dysuria SKIN: Denies rash. MSK: Denies joint pain. NEURO: Denies headache ROS Other: All systems not noted in ROS Statement are negative. Past Medical History Past Medical History: Asthma, COPD, GERD/Reflux, Hypertension, Osteoarthritis (OA), Thyroid Disorder Additional Past Medical History / Comment(s): Anemia, chronic back pain see Dr. Polo for pain specialist History of Any Multi-Drug Resistant Organisms: None Reported Past Surgical History: Appendectomy, Cholecystectomy, Tubal Ligation Additional Past Surgical History / Comment(s): Lipoma removed from left shoulder Past Anesthesia/Blood Transfusion Reactions: No Reported Reaction Past Psychological History: ADD/ADHD, Anxiety, Bipolar, Depression, Panic Disorder, PTSD, Schizophrenia Smoking Status: Current every day smoker Past Alcohol Use History: Occasional Past Drug Use History: Marijuana - Past Family History Father Family Medical History: Myocardial Infarction ([place]) Mother Family Medical History: AFIB Sister(s) Family Medical History: Cancer, Deep Vein Thrombosis (DVT) General Exam - General Exam Comments Initial Comments: General: Appears in no acute distress. HEAD: Normal with no signs of head trauma. EYES: PERRLA, EOMI, conjunctiva normal, no discharge. ENT: Hearing grossly intact, normal oropharynx. RESPIRATORY: Mild end expiratory wheezing bilaterally with rales centrally. No obvious rhonchi. No increased work of breathing. Saturations are within normal limits. C/V: Regular rate and rhythm. S1 and S2 auscultated, no edema, peripheral puls es 2+ and intact throughout. Patient somewhat hypertensive. ABD: Abd is soft, nontender, nondistended EXT: Normal range of motion, no obvious deformity SKIN: No rashes or lesions observed on exposed skin. NEURO: Alert and oriented 4. No focal deficits. Limitations: no limitations Course Vital Signs 02/06/21 02/06/21 02/06/21 16:21 17:34 17:45 Temperature 98.3 F Pulse Rate 82 69 79 Respiratory 20 Rate Blood Pressure 184/139 O2 Sat by Pulse 99 Oximetry 02/06/21 19:41 Temperature Pulse Rate 77 Respiratory Rate Blood Pressure 165/110 O2 Sat by Pulse 98 Oximetry Medical Decision Making - Medical Decision Making Based on the patient's presentation and physical exam, I do believe she is likely having persistent asthma exacerbation with possible infectious etiology underlying it. Concerned for possible no pneumonia versus viral etiology. She has no other acute complaints at this time. She does have a symptomatically hypertension at this time but will be given a dose of hydralazine while she is here in the department. I do not believe that she requires any laboratory studies at this time. We will obtain a Covid swab in addition to fluid RSV. Chest x-ray will be obtained. Screening EKG was obtained in triage. Patient will be symptomatically treated with DuoNeb, albuterol inhaler, by mouth prednisone. She'll likely be discharged home on antibiotics. She was in agreement this plan. Patient does not have chest pain at this time. She states that her blood pressure when she has infections is usually somewhat elevated like it is presently. She states she is compliant with her medications. Patient's EKG shows no signs of acute ischemia. Normal sinus rhythm.Patient's chest x-ray revealed no acute cardiopulmonary process. Patient is Covid, RSV, flu negative. Repeat blood pressure was improved to 160s systolic. On reevaluation, patient's breathing is improved. We discussed results of her imaging and laboratory studies. I do believe it is safer to be discharged home with close follow-up with her physician. She was in agreement this plan. She'll be given a dose of doxycycline prior to discharge home as well as prescription. I will provide the patient with a prescription for doxycycline 100 mg twice a day for 7 days, prednisone 40 mg daily for 5 days, albuterol inhaler. I instructed the patient to follow up with their PCP in the next 3 days. I expl ained that the patient should return to the emergency department if they experience any worsening symptoms. Strict return precautions were discussed with the patient. The patient expressed understanding of these instructions. I answered all questions that the patient had. The patient was discharged home in good condition with their prescriptions and follow up information. - Lab Data Lab Results 02/06/21 Range/Units 17:36 Influenza Type A (PCR) Not Detected (Not Detectd) Influenza Type B (PCR) Not Detected (Not Detectd) RSV (PCR) Not Detected (Not Detectd) SARS-CoV-2 (PCR) Not Detected (Not Detectd) - EKG Data -: EKG Interpreted by Me EKG Comments: 12-lead Electrocardiogram Interpretation Note EKG was reviewed and interpreted by myself. 12-lead ECG performed at 1644 is interpreted by me as revealing normal sinus rhythm at a rate of 76 beats per minute. [place] is normal. LA interval is 152 ms, QRS duration is 76 seconds, QTC is 438 ms. There were no [address] or T wave abnormalities to suggest myocardial ischemia or injury. R wave progression across the precordium was satisfactory. By my interpretation this EKG is non-diagnostic for acute ischemia. Disposition Clinical Impression: Asthma, Bronchitis, Asymptomatic hypertension Disposition: HOME SELF-CARE Condition: Good Instructions (If sedation given, give patient instructions): Asthma (ED), Acute Bronchitis (ED) Prescriptions: predniSONE [Deltasone] 40 mg PO DAILY 5 Days #10 tab Albuterol Inhaler [Ventolin Hfa Inhaler] 1 puff INHALATION RT-QID #8 gm Doxycycline Hyclate [Vibramycin] 100 mg PO BID 7 Days #14 cap Is patient prescribed a controlled substance at d/c from ED?: No Referrals: Riley Govea MD [Primary Care Provider] - 1-2 days
--- NOTE | 2021-02-06 18:19 | XR ---
EXAMINATION TYPE: XR chest 2V DATE OF EXAM: 02/06/2021 COMPARISON: 10/15/2020 HISTORY: Cough TECHNIQUE: 2 views FINDINGS: Heart is normal. Lungs are clear of infiltrate. There is mild thoracic dextroscoliosis. Cos tophrenic angles are clear. There are no hilar masses. IMPRESSION: No active cardiopulmonary disease. Normal heart. No change.
[2021-02-06] MEDS ORDERED: DOXYCYCLINE 100 MG CAP PO STA (19:40)
[2021-02-06 19:42] VITALS: BP 165/110; PULSE 77
== END 2021-02-06 19:59 | disposition home or self-care (01) ==
LOC: EC 16:12
DX: J45.909 Unspecified asthma, uncomplicated (principal); I10 Essential (primary) hypertension; K21.9 Gastro-esophageal reflux disease without esophagitis; M19.90 Unspecified osteoarthritis, unspecified site; F31.9 Bipolar disorder, unspecified; F41.9 Anxiety disorder, unspecified; F17.200 Nicotine dependence, unspecified, uncomplicated; F12.90 Cannabis use, unspecified, uncomplicated; Z20.822 Contact with and (suspected) exposure to COVID-19; Z79.899 Other long term (current) drug therapy; Z79.52 Long term (current) use of systemic steroids; Z90.49 Acquired absence of other specified parts of digestive tract
CPT/HCPCS: 94640; 93005; 87636; 71046; 99285; 96372; J0360; J7512

== ENCOUNTER 2021-04-02 09:07 | Emergency (ER) | payer OTHER ==
[2021-04-02] MEDS ORDERED: TOPICAL SKIN ADHESIVE 1 EACH AMP TOPICAL STA (09:38)
--- NOTE | 2021-04-02 09:55 | ED ---
General Adult HPI - General Chief complaint: Wound/Laceration Stated complaint: Finger laceration Time Seen by Provider: 04/02/21 09:27 Source: patient Mode of arrival: ambulatory Limitations: no limitations - History of Present Illness Initial comments: 56-year-old female presents to the ER for chief complaint of laceration. Patient has a laceration to the left second digit. Patient states accidentally cut her finger with a butter knife. States she doesn't think it is serious but didn't want to risk it. Pt is up-to-date on tetanus.Patient has no other complaints at this time including shortness of breath, chest pain, abdominal pain, nausea or vomiting, headache, or visual changes. - Related Data Home Medications Medication Instructions Recorded Confirmed Omeprazole 20 mg PO DAILY 12/29/17 10/15/20 cloNIDine HCL [Catapres] 0.1 mg PO DAILY 12/29/17 10/15/20 Albuterol Sulfate [Proair Hfa] 2 puff INHALATION RT-QID PRN 10/15/20 10/15/20 Fluticasone Nasal [place] [Flonase 2 spr EA NOSTRIL DAILY 10/15/20 10/15/20 Nasal [place]] Fluticasone/Vilanterol [Breo 1 puff INHALATION RT-DAILY 10/15/20 10/15/20 Ellipta 100-25 Mcg Inhaler] amLODIPine [Norvasc] 10 mg PO DAILY 10/15/20 10/15/20 clonazePAM [KlonoPIN] 0.5 mg PO DAILY 10/15/20 10/15/20 Previous Rx's Medication Instructions Recorded atenoloL 25 mg PO DAILY #30 tablet 09/07/17 Albuterol Inhaler [Ventolin Hfa 1 puff INHALATION RT-QID PRN #1 10/15/20 Inhaler] inhaler Doxycycline [Vibramycin] 100 mg PO BID 5 Days #10 capsule 10/15/20 predniSONE 50 mg PO DAILY 5 Days #5 tab 10/15/20 Albuterol Inhaler [Ventolin Hfa 1 puff INHALATION RT-QID #8 gm 02/06/21 Inhaler] Doxycycline Hyclate [Vibramycin] 100 mg PO BID 7 Days #14 cap 02/06/21 predniSONE [Deltasone] 40 mg PO DAILY 5 Days #10 tab 02/06/21 Allergies Allergy/AdvReac Type Severity Reaction Status Date / Time No Known Allergies Allergy Verified 04/02/21 09:22 Review of Systems ROS Statement: Those systems with pertinent positive or pertinent negative responses have been documented in the HPI. ROS Other: All systems not noted in ROS Statement are negative. Past Medical History Past Medical History: Asthma, COPD, GERD/Reflux, Hypertension, Osteoarthritis (OA), Thyroid Disorder Additional Past Medical History / Comment(s): Anemia, chronic back pain see Dr. Polo for pain specialist History of Any Multi-Drug Resistant Organisms: None Reported Past Surgical History: Appendectomy, Cholecystectomy, Tubal Ligation Additional Past Surgical History / Comment(s): Lipoma removed from left shoulder Past Anesthesia/Blood Transfusion Reactions: No Reported Reaction Past Psychological History: Anxiety Smoking Status: Current every day smoker Past Alcohol Use History: Occasional Past Drug Use History: None Reported - Past Family History Father Family Medical History: Myocardial Infarction ([place]) Mother Family Medical History: AFIB Sister(s) Family Medical History: Cancer, Deep Vein Thrombosis (DVT) General Exam Limitations: no limitations General appearance: alert, in no apparent distress Head exam: Present: atraumatic Eye exam: Present: normal appearance, PERRL, EOMI. Absent: scleral icterus, conjunctival injection ENT exam: Present: normal exam, mucous membranes moist Neck exam: Present: normal inspection, full ROM. Absent: tenderness Respiratory exam: Present: normal lung sounds bilaterally. Absent: respiratory distress, wheezes Cardiovascular Exam: Present: regular rate, normal rhythm, normal heart sounds Extremities exam: Present: full ROM (Full range of motion left second digit including flexion and extension at the DIP, PIP, and MCP joints.), normal capillary refill (cap refill less than 2 seconds left upper extremity including left second digit), other (Superficial laceration about 1 cm in length noted to the left second digit dorsal aspect DIP joint) Course Vital Signs 04/02/21 04/02/21 04/02/21 09:22 09:57 11:09 Temperature 98.4 F 97.5 F L Pulse Rate 86 74 Respiratory 18 16 Rate Blood Pressure 172/130 185/128 156/112 O2 Sat by Pulse 100 100 Oximetry Procedures - Laceration Laceration #1 Consent Obtained: verbal consent Indication: laceration Site: hand Size (cm): 1 Description: linear Depth: simple, single layer Type of Sutures: other (exofin) Patient Tolerated Procedure: well, no complications Medical Decision Making - Medical Decision Making Laceration very superficial in nature. Full range of motion, no concern for tendon injury at this time. Wound was irrigated with saline pressure irrigation. skin glue was applied. Patient was given a splint to help her from bending the finger. At this time patient be discharged home to follow up with primary care. He'll return here for any worsening symptoms. Patient's blood pressure is high. She has a history of hypertension and is anxious about this laceration. She did not take her medications today. These were given in the ER and did improve somewhat. Patient is asymptomatic is denying chest pain shortness of breath headache back pain. Patient will follow- up with her doctor and return here for any worsening symptoms. Disposition Clinical Impression: Laceration Disposition: HOME SELF-CARE Condition: Good Instructions (If sedation given, give patient instructions): Laceration (ED), Skin Adhesive Care (ED) Additional Instructions: Please keep area dry and try not to bend it by wearing the splint. Follow-up with your doctor. Return to the emergency room for any worsening symptoms. Is patient prescribed a controlled substance at d/c from ED?: No Referrals: Riley Govea MD [Primary Care Provider] - 1-2 days Time of Disposition: 09:54
[2021-04-02 10:01] VITALS: PULSE 74; RESP 16; TEMP 97.5
[2021-04-02] MEDS ORDERED: atenoloL 25 MG TAB PO STA (10:06)
[2021-04-02] MEDS ORDERED: cloNIDine HCL 0.1 MG TAB PO STA (10:06)
[2021-04-02 11:09] VITALS: BP 156/112
== END 2021-04-02 11:28 | disposition home or self-care (01) ==
LOC: EC 09:07
DX: S61.211A Laceration without foreign body of left index finger without damage to nail, initial encounter (principal); J44.9 Chronic obstructive pulmonary disease, unspecified; I10 Essential (primary) hypertension; K21.9 Gastro-esophageal reflux disease without esophagitis; M19.90 Unspecified osteoarthritis, unspecified site; F41.9 Anxiety disorder, unspecified; F17.200 Nicotine dependence, unspecified, uncomplicated; Z72.89 Other problems related to lifestyle; Z79.51 Long term (current) use of inhaled steroids; W26.0XXA Contact with knife, initial encounter
CPT/HCPCS: 12001; 99283

== ENCOUNTER 2021-04-29 22:19 | Emergency (ER) | payer OTHER ==
[2021-04-29 23:34] VITALS: RESP 18; TEMP 97.8
[2021-04-30] MEDS ORDERED: SODIUM CHLORIDE 0.9% 500 ML 500 ML IV STA (00:41)
--- NOTE | 2021-04-30 01:09 | ED ---
General Adult HPI - General Chief complaint: Dizziness Stated complaint: Dizziness Time Seen by Provider: 04/30/21 00:24 Source: patient Mode of arrival: ambulatory Limitations: physical limitation - History of Present Illness Initial comments: 56-year-old female patient presents to the emergency department today for evaluation of lightheadedness. Patient states couple of hours ago she turned her head and she felt very lightheaded. States she felt like she might pass out. States it has happened several times since then. States she did have elevated blood pressure in triage on arrival. States she did take her blood pressure medications today which include clonidine and atenolol. She denies any headache, blurred vision, double vision. Denies numbness, tingling, weakness to her extremities. Denies any ear pain. Denies any recent illness or nasal congestion. Denies any recent head injury. Denies any new medications or stopping any medications. Patient denies any recent rash, fever, chills, cough, shortness of breath, chest pain, abdominal pain, nausea, vomiting, diarrhea, constipation, back pain, numbness, hematuria, dysuria, urinary urgency, urinary frequency, or any other complaints. - Related Data Home Medications Medication Instructions Recorded Confirmed Omeprazole 20 mg PO DAILY 12/29/17 10/15/20 cloNIDine HCL [Catapres] 0.1 mg PO DAILY 12/29/17 10/15/20 Albuterol Sulfate [Proair Hfa] 2 puff INHALATION RT-QID PRN 10/15/20 10/15/20 Fluticasone Nasal [place] [Flonase 2 spr EA NOSTRIL DAILY 10/15/20 10/15/20 Nasal [place]] Fluticasone/Vilanterol [Breo 1 puff INHALATION RT-DAILY 10/15/20 10/15/20 Ellipta 100-25 Mcg Inhaler] amLODIPine [Norvasc] 10 mg PO DAILY 10/15/20 10/15/20 clonazePAM [KlonoPIN] 0.5 mg PO DAILY 10/15/20 10/15/20 Previous Rx's Medication Instructions Recorded atenoloL 25 mg PO DAILY #30 tablet 09/07/17 Albuterol Inhaler [Ventolin Hfa 1 puff INHALATION RT-QID PRN #1 10/15/20 Inhaler] inhaler Doxycycline [Vibramycin] 100 mg PO BID 5 Days #10 capsule 10/15/20 predniSONE 50 mg PO DAILY 5 Days #5 tab 10/15/20 Albuterol Inhaler [Ventolin Hfa 1 puff INHALATION RT-QID #8 gm 02/06/21 Inhaler] Doxycycline Hyclate [Vibramycin] 100 mg PO BID 7 Days #14 cap 02/06/21 predniSONE [Deltasone] 40 mg PO DAILY 5 Days #10 tab 02/06/21 Allergies Allergy/AdvReac Type Severity Reaction Status Date / Time No Known Allergies Allergy Verified 04/29/21 23:34 Review of Systems ROS Statement: Those systems with pertinent positive or pertinent negative responses have been documented in the HPI. ROS Other: All systems not noted in ROS Statement are negative. Past Medical History Past Medical History: Asthma, COPD, GERD/Reflux, Hypertension, Osteoarthritis (OA), Thyroid Disorder Additional Past Medical History / Comment(s): Anemia, chronic back pain see Dr. Polo for pain specialist History of Any Multi-Drug Resistant Organisms: None Reported Past Surgical History: Appendectomy, Cholecystectomy, Tubal Ligation Additional Past Surgical History / Comment(s): Lipoma removed from left shoulder Past Anesthesia/Blood Transfusion Reactions: No Reported Reaction Past Psychological History: Anxiety Smoking Status: Current every day smoker Past Alcohol Use History: Occasional Past Drug Use History: None Reported - Past Family History Father Family Medical History: Myocardial Infarction ([place]) Mother Family Medical History: AFIB Sister(s) Family Medical History: Cancer, Deep Vein Thrombosis (DVT) General Exam Limitations: physical limitation General appearance: alert, in no apparent distress, other (This is a well- developed, well-nourished adult female in no acute distress.) Eye exam: Present: normal appearance, PERRL, EOMI. Absent: scleral icterus, conjunctival injection, nystagmus, periorbital swelling ENT exam: Present: normal exam, normal oropharynx Respiratory exam: Present: normal lung sounds bilaterally. Absent: respiratory distress, wheezes, rales, rhonchi, stridor Cardiovascular Exam: Present: regular rate, normal rhythm, normal heart sounds. Absent: systolic murmur, diastolic murmur, rubs, gallop, clicks GI/Abdominal exam: Present: soft, normal bowel sounds. Absent: distended, tenderness, guarding, rebound, rigid Neurological exam: Present: alert, oriented X3, CN II-XII intact Expanded Speech: Present: fluid speech Cranial nerves: EOM's Intact: Normal, Nystagmus: Normal Motor strength exam: RUE: 5, LUE: 5, RLE: 5, LLE: 5 Psychiatric exam: Present: normal affect, normal mood Skin exam: Present: warm, dry, intact, normal color. Absent: rash Course Vital Signs 04/29/21 23:30 Temperature 97.8 F Pulse Rate 73 Respiratory 18 Rate Blood Pressure 177/123 O2 Sat by Pulse 98 Oximetry EKG Findings - EKG Comments: EKG Findings:: EKG obtained at 0108 shows normal sinus rhythm with a ventricular rate of 70, ME interval 162, QR jainism 72, QT 422, QTc 455. No evidence of ST elevation or depression. Medical Decision Making - Medical Decision Making 56-year-old female patient presents to the emergency department today for evaluation of lightheadedness and elevated blood pressure. Physical examination to unremarkable. She is neurologically intact with no focal deficits. EKG is unremarkable. Labs reviewed and did mildly elevated BUN which could indicate some dehydration.. Blood pressure did remain elevated so she is given additional dose of clonidine. She did have 100 mL of normal saline here. Upon reevaluation she is resting comfortably. She'll be discharged with follow-up with the primary care physician for recheck in 1-2 days. She is instructed to increase fluids. Return parameters were discussed in detail. She verbalizes understanding and agrees with this plan. My attending is Dr. Paul. - Lab Data Result diagrams: 04/30/21 00:45 04/30/21 00:45 Lab Results 04/30/21 04/30/21 04/30/21 Range/Units 00:45 00:45 00:45 WBC 7.4 (3.8-10.6) k/uL RBC 4.50 (3.80-5.40) m/uL Hgb 12.9 (11.4-16.0) gm/dL Hct 40.7 (34.0-46.0) % MCV 90.3 (80.0-100.0) fL MCH 28.7 (25.0-35.0) pg MCHC 31.8 (31.0-37.0) g/dL RDW 14.2 (11.5-15.5) % Plt Count 255 (150-450) k/uL MPV 7.4 Neutrophils % 71 % Lymphocytes % 21 % Monocytes % 4 % Eosinophils % 2 % Basophils % 1 % Neutrophils # 5.2 (1.3-7.7) k/uL Lymphocytes # 1.5 (1.0-4.8) k/uL Monocytes # 0.3 (0-1.0) k/uL Eosinophils # 0.2 (0-0.7) k/uL Basophils # 0.1 (0-0.2) k/uL Sodium 138 (137-145) mmol/L Potassium 3.9 (3.5-5.1) mmol/L Chloride 108 H (98-107) mmol/L Carbon Dioxide 23 (22-30) mmol/L Anion Gap 7 mmol/L BUN 23 H (7-17) mg/dL Creatinine 0.90 (0.52-1.04) mg/dL Est GFR (CKD-EPI)AfAm 82 (>60 ml/min/1.73 sqM) Est GFR (CKD-EPI)NonAf 71 (>60 ml/min/1.73 sqM) Glucose 102 H (74-99) mg/dL Calcium 9.2 (8.4-10.2) mg/dL Total Bilirubin 0.8 (0.2-1.3) mg/dL AST 22 (14-36) U/L ALT 22 (4-34) U/L Alkaline Phosphatase 82 (38-126) U/L Troponin I <0.012 (0.000-0.034) ng/mL Total Protein 7.0 (6.3-8.2) g/dL Albumin 4.1 (3.5-5.0) g/dL Coronavirus (PCR) (Not Detectd) 04/30/21 Range/Units 00:45 WBC (3.8-10.6) k/uL RBC (3.80-5.40) m/uL Hgb (11.4-16.0) gm/dL Hct (34.0-46.0) % MCV (80.0-100.0) fL MCH (25.0-35.0) pg MCHC (31.0-37.0) g/dL RDW (11.5-15.5) % Plt Count (150-450) k/uL MPV Neutrophils % % Lymphocytes % % Monocytes % % Eosinophils % % Basophils % % Neutrophils # (1.3-7.7) k/uL Lymphocytes # (1.0-4.8) k/uL Monocytes # (0-1.0) k/uL Eosinophils # (0-0.7) k/uL Basophils # (0-0.2) k/uL Sodium (137-145) mmol/L Potassium (3.5-5.1) mmol/L Chloride (98-107) mmol/L Carbon Dioxide (22-30) mmol/L Anion Gap mmol/L BUN (7-17) mg/dL Creatinine (0.52-1.04) mg/dL Est GFR (CKD-EPI)AfAm (>60 ml/min/1.73 sqM) Est GFR (CKD-EPI)NonAf (>60 ml/min/1.73 sqM) Glucose (74-99) mg/dL Calcium (8.4-10.2) mg/dL Total Bilirubin (0.2-1.3) mg/dL AST (14-36) U/L ALT (4-34) U/L Alkaline Phosphatase (38-126) U/L Troponin I (0.000-0.034) ng/mL Total Protein (6.3-8.2) g/dL Albumin (3.5-5.0) g/dL Coronavirus (PCR) Not Detected (Not Detectd) Disposition Clinical Impression: Dizziness, Dehydration, Hypertension Disposition: HOME SELF-CARE Condition: Good Instructions (If sedation given, give patient instructions): Dehydration (ED), Hypertension (ED), Dizziness (ED) Additional Instructions: Increase fluids. Rest. Follow-up with your primary care physician for recheck in 1-2 days. Return for any new, worsening, or concerning symptoms. Is patient prescribed a controlled substance at d/c from ED?: No Referrals: Riley Govea MD [Primary Care Provider] - 1-2 days Time of Disposition: 03:37
[2021-04-30 01:35] LABS: Albumin 4.1 g/dL (3.5-5.0); Calcium 9.2 mg/dL (8.4-10.2); Potassium 3.9 mmol/L (3.5-5.1); Total Bilirubin 0.8 mg/dL (0.2-1.3)
[2021-04-30 01:36] LABS: Basophils # (A) 0.1 k/uL (0-0.2); Basophils % (A) 1 %; Eosinophils # (A) 0.2 k/uL (0-0.7); Eosinophils % (A) 2 %; HCT 40.7 % (34.0-46.0); HGB 12.9 gm/dL (11.4-16.0); Lymphocytes # (A) 1.5 k/uL (1.0-4.8); Lymphocytes % (A) 21 %; MCH 28.7 pg (25.0-35.0); MCHC 31.8 g/dL (31.0-37.0); MCV 90.3 fL (80.0-100.0); Mean Platelet Volume 7.4; Monocytes # (A) 0.3 k/uL (0-1.0); Monocytes % (A) 4 %; Neutrophils # (A) 5.2 k/uL (1.3-7.7); Neutrophils % (A) 71 %; Platelet Count 255 k/uL (150-450); RDW 14.2 % (11.5-15.5); WBC 7.4 k/uL (3.8-10.6)
[2021-04-30] MEDS ORDERED: cloNIDine HCL 0.1 MG TAB PO STA (03:27)
[2021-04-30 03:42] VITALS: BP 161/118; PULSE 71
== END 2021-04-30 03:45 | disposition home or self-care (01) ==
LOC: EC 22:19
DX: E86.0 Dehydration (principal); I10 Essential (primary) hypertension; F17.200 Nicotine dependence, unspecified, uncomplicated; J44.9 Chronic obstructive pulmonary disease, unspecified; Z79.899 Other long term (current) drug therapy; Z79.51 Long term (current) use of inhaled steroids; Z20.822 Contact with and (suspected) exposure to COVID-19
CPT/HCPCS: 36415; 80053; 84484; 85025; 87635; 93005; 99284

== ENCOUNTER 2021-07-19 14:01 | Emergency (ER) | payer OTHER ==
[2021-07-19 14:04] VITALS: TEMP 98.5
[2021-07-19] MEDS ORDERED: cloNIDine HCL 0.1 MG TAB PO STA (15:27)
--- NOTE | 2021-07-19 15:28 | ED ---
Dizziness HPI - General Chief Complaint: Dizziness Stated Complaint: High Blood Pressure, Dizziness Time Seen by Provider: 07/19/21 14:58 Source: patient Mode of arrival: ambulatory Limitations: no limitations - History of Present Illness Initial Comments: Patient is a 48-year-old female who presents to the emergency department with a chief complaint of lightheadedness. She states she was eating lunch today when she experienced the episode. Patient denies loss of consciousness. She states her lightheadedness resolved shortly after. Patient states that this is happened several times before when her blood pressure is high and that her blood pressure was elevated in triage. Patient takes amlodipine and clonidine for high blood pressure, both of which she states she took this morning. Patient states that yesterday she experience some heartburn after eating a ham sandwich. She takes she takes omeprazole for GERD but has ran out of them. She is not experiencing heartburn currently. She has no other concerns at this time including fever, chills, headache, double vision, blurry vision, shortness of breath, cough, chest pain, abdominal pain, nausea, vomiting, and burning with urination. She denies numbness, tingling, weakness to her extremities. - Related Data Home Medications Medication Instructions Recorded Confirmed Omeprazole 20 mg PO DAILY 12/29/17 10/15/20 cloNIDine HCL [Catapres] 0.1 mg PO DAILY 12/29/17 10/15/20 Albuterol Sulfate [Proair Hfa] 2 puff INHALATION RT-QID PRN 10/15/20 10/15/20 Fluticasone Nasal [place] [Flonase 2 spr EA NOSTRIL DAILY 10/15/20 10/15/20 Nasal [place]] Fluticasone/Vilanterol [Breo 1 puff INHALATION RT-DAILY 10/15/20 10/15/20 Ellipta 100-25 Mcg Inhaler] amLODIPine [Norvasc] 10 mg PO DAILY 10/15/20 10/15/20 clonazePAM [KlonoPIN] 0.5 mg PO DAILY 10/15/20 10/15/20 Previous Rx's Medication Instructions Recorded atenoloL 25 mg PO DAILY #30 tablet 09/07/17 Albuterol Inhaler [Ventolin Hfa 1 puff INHALATION RT-QID PRN #1 10/15/20 Inhaler] inhaler Doxycycline [Vibramycin] 100 mg PO BID 5 Days #10 capsule 10/15/20 predniSONE 50 mg PO DAILY 5 Days #5 tab 10/15/20 Albuterol Inhaler [Ventolin Hfa 1 puff INHALATION RT-QID #8 gm 02/06/21 Inhaler] Doxycycline Hyclate [Vibramycin] 100 mg PO BID 7 Days #14 cap 02/06/21 predniSONE [Deltasone] 40 mg PO DAILY 5 Days #10 tab 02/06/21 Omeprazole [PriLOSEC] 20 mg PO AC-BRKFST #7 cap 07/19/21 Allergies Allergy/AdvReac Type Severity Reaction Status Date / Time No Known Allergies Allergy Verified 07/19/21 14:04 Review of Systems ROS Statement: Those systems with pertinent positive or pertinent negative responses have been documented in the HPI. ROS Other: All systems not noted in ROS Statement are negative. Past Medical History Past Medical History: Asthma, COPD, GERD/Reflux, Hypertension, Osteoarthritis (OA), Thyroid Disorder Additional Past Medical History / Comment(s): Anemia, chronic back pain see Dr. Polo for pain specialist History of Any Multi-Drug Resistant Organisms: None Reported Past Surgical History: Appendectomy, Cholecystectomy, Tubal Ligation Additional Past Surgical History / Comment(s): Lipoma removed from left shoulder Past Anesthesia/Blood Transfusion Reactions: No Reported Reaction Past Psychological History: Anxiety Smoking Status: Current every day smoker Past Alcohol Use History: Occasional Past Drug Use History: None Reported - Past Family History Father Family Medical History: Myocardial Infarction ([place]) Mother Family Medical History: AFIB Sister(s) Family Medical History: Cancer, Deep Vein Thrombosis (DVT) General Exam Limitations: no limitations General appearance: alert, in no apparent distress Head exam: Present: atraumatic, normocephalic, normal inspection Eye exam: Present: normal appearance, PERRL, EOMI. Absent: scleral icterus, conjunctival injection, periorbital swelling Neck exam: Present: normal inspection. Absent: tenderness, meningismus, lymphadenopathy Respiratory exam: Present: normal lung sounds bilaterally. Absent: respiratory distress, wheezes, rales, rhonchi, stridor Cardiovascular Exam: Present: regular rate, normal rhythm, normal heart sounds. Absent: systolic murmur, diastolic murmur, rubs, gallop, clicks GI/Abdominal exam: Present: soft, normal bowel sounds. Absent: distended, tenderness, guarding, rebound, rigid Neurological exam: Present: alert, oriented X3, CN II-XII intact Psychiatric exam: Present: normal affect, normal mood Skin exam: Present: warm, dry, intact, normal color. Absent: rash Course Vital Signs 07/19/21 07/19/21 07/19/21 14:02 14:33 15:34 Temperature 98.5 F Pulse Rate 85 78 87 Respiratory 20 18 18 Rate Blood Pressure 202/132 191/136 157/112 O2 Sat by Pulse 99 100 98 Oximetry 07/19/21 15:58 Temperature Pulse Rate 72 Respiratory 18 Rate Blood Pressure 165/123 O2 Sat by Pulse 97 Oximetry EKG Findings - EKG Comments: EKG Findings:: EKG taken at 14:22. Sinus rhythm, anteroseptal myocardial infarction of indeterminate age. Ventricular rate 78. VT interval 163. QRS duration 94. QTC 43 Medical Decision Making - Medical Decision Making This is a 56-year-old female who presents for evaluation of lightheadedness and elevated blood pressure. Thorough history and examination were performed. EKG and laboratory studies are unremarkable. Patient's blood pressure remained elevated in the emergency department so she was given a dose of clonidine. On reevaluation patient remains asymptomatic. She will be discharged with instruction to follow up with her primary care provider in1 to 2 days for blood pressure and heart burn management. Patient verbalizes understanding and is agreeable to plan. Dr. Santiago is my attending. - Lab Data Result diagrams: 07/19/21 15:22 07/19/21 15:22 Lab Results 07/19/21 07/19/21 07/19/21 Range/Units 15:22 15:22 15:22 WBC 5.5 (3.8-10.6) k/uL RBC 4.36 (3.80-5.40) m/uL Hgb 12.7 (11.4-16.0) gm/dL Hct 39.0 (34.0-46.0) % MCV 89.6 (80.0-100.0) fL MCH 29.1 (25.0-35.0) pg MCHC 32.5 (31.0-37.0) g/dL RDW 14.8 (11.5-15.5) % Plt Count 247 (150-450) k/uL MPV 7.5 Sodium 138 (137-145) mmol/L Potassium 4.1 (3.5-5.1) mmol/L Chloride 109 H (98-107) mmol/L Carbon Dioxide 23 (22-30) mmol/L Anion Gap 6 mmol/L BUN 18 H (7-17) mg/dL Creatinine 0.93 (0.52-1.04) mg/dL Est GFR (CKD-EPI)AfAm 79 (>60 ml/min/1.73 sqM) Est GFR (CKD-EPI)NonAf 68 (>60 ml/min/1.73 sqM) Glucose 97 (74-99) mg/dL Calcium 9.2 (8.4-10.2) mg/dL Magnesium 1.9 (1.6-2.3) mg/dL Total Bilirubin 0.8 (0.2-1.3) mg/dL AST 25 (14-36) U/L ALT 21 (4-34) U/L Alkaline Phosphatase 71 (38-126) U/L Troponin I <0.012 (0.000-0.034) ng/mL Total Protein 7.2 (6.3-8.2) g/dL Albumin 4.2 (3.5-5.0) g/dL Disposition Clinical Impression: Lightheadedness Disposition: HOME SELF-CARE Condition: Good Instructions (If sedation given, give patient instructions): Hypertension (ED) Additional Instructions: Please follow up with her primary care provider in one to 2 days for blood pressure and heartburn management. Take omeprazole as prescribed. Return to the emergency department if you experience new, concerning, or worsening symptoms. Prescriptions: Omeprazole [PriLOSEC] 20 mg PO AC-BRKFST #7 cap Is patient prescribed a controlled substance at d/c from ED?: No Referrals: Riley Govea MD [Primary Care Provider] - 1-2 days Time of Disposition: 15:50
[2021-07-19 15:31] LABS: HGB 12.7 gm/dL (11.4-16.0); MCH 29.1 pg (25.0-35.0); MCHC 32.5 g/dL (31.0-37.0); MCV 89.6 fL (80.0-100.0); Mean Platelet Volume 7.5; Platelet Count 247 k/uL (150-450); RBC 4.36 m/uL (3.80-5.40); RDW 14.8 % (11.5-15.5); WBC 5.5 k/uL (3.8-10.6)
[2021-07-19 15:42] LABS: Potassium 4.1 mmol/L (3.5-5.1)
[2021-07-19 15:43] LABS: Albumin 4.2 g/dL (3.5-5.0); Calcium 9.2 mg/dL (8.4-10.2); Magnesium 1.9 mg/dL (1.6-2.3); Total Bilirubin 0.8 mg/dL (0.2-1.3); Total Protein 7.2 g/dL (6.3-8.2)
[2021-07-19 15:58] VITALS: PULSE 72
[2021-07-19 16:14] VITALS: BP 153/110; RESP 16
== END 2021-07-19 16:20 | disposition home or self-care (01) ==
LOC: EC 14:01
DX: R42 Dizziness and giddiness (principal); I10 Essential (primary) hypertension; J44.9 Chronic obstructive pulmonary disease, unspecified; K21.9 Gastro-esophageal reflux disease without esophagitis; M19.90 Unspecified osteoarthritis, unspecified site; F41.9 Anxiety disorder, unspecified; F17.200 Nicotine dependence, unspecified, uncomplicated; Z79.51 Long term (current) use of inhaled steroids; Z79.52 Long term (current) use of systemic steroids; Z79.899 Other long term (current) drug therapy
CPT/HCPCS: 36415; 80053; 83735; 84484; 85027; 93005; 99284

== ENCOUNTER 2021-10-03 20:10 | Observation (INO) | payer OTHER ==
[2021-10-03] MEDS ORDERED: MAG HYDROX/AL HYDROX/SIMETH 30 ML, HYOSCYAMINE ELIXIR 10 ML, LIDOCAINE VISCOUS 2% 10 ML PO STA ×3 (20:46)
--- NOTE | 2021-10-03 20:48 | ED ---
General Adult HPI - General Chief complaint: Chest Pain Stated complaint: Chest pain Time Seen by Provider: 10/03/21 20:26 Source: patient, RN notes reviewed, old records reviewed Mode of arrival: wheelchair Limitations: no limitations - History of Present Illness Initial comments: 56-year-old female history of hypertension presenting for evaluation of chest pain. Patient states that she had a substernal chest discomfort and pain which lasted approximately 1 minute and was ultimately described as a burning sensation. This occurred prior to arrival. There is no vomiting. No diaphoresis. She is a current smoker. She has no documented history of CAD. She does take multiple antihypertensive medication. No dyspnea. - Related Data Home Medications Medication Instructions Recorded Confirmed Omeprazole 20 mg PO DAILY 12/29/17 10/15/20 cloNIDine HCL [Catapres] 0.1 mg PO DAILY 12/29/17 10/15/20 Albuterol Sulfate [Proair Hfa] 2 puff INHALATION RT-QID PRN 10/15/20 10/15/20 Fluticasone Nasal [place] [Flonase 2 spr EA NOSTRIL DAILY 10/15/20 10/15/20 Nasal [place]] Fluticasone/Vilanterol [Breo 1 puff INHALATION RT-DAILY 10/15/20 10/15/20 Ellipta 100-25 Mcg Inhaler] amLODIPine [Norvasc] 10 mg PO DAILY 10/15/20 10/15/20 clonazePAM [KlonoPIN] 0.5 mg PO DAILY 10/15/20 10/15/20 Previous Rx's Medication Instructions Recorded atenoloL 25 mg PO DAILY #30 tablet 09/07/17 Albuterol Inhaler [Ventolin Hfa 1 puff INHALATION RT-QID PRN #1 10/15/20 Inhaler] inhaler Doxycycline [Vibramycin] 100 mg PO BID 5 Days #10 capsule 10/15/20 predniSONE 50 mg PO DAILY 5 Days #5 tab 10/15/20 Albuterol Inhaler [Ventolin Hfa 1 puff INHALATION RT-QID #8 gm 02/06/21 Inhaler] Doxycycline Hyclate [Vibramycin] 100 mg PO BID 7 Days #14 cap 02/06/21 predniSONE [Deltasone] 40 mg PO DAILY 5 Days #10 tab 02/06/21 Omeprazole [PriLOSEC] 20 mg PO AC-BRKFST #7 cap 07/19/21 Allergies Allergy/AdvReac Type Severity Reaction Status Date / Time No Known Allergies Allergy Verified 10/03/21 20:36 Review of Systems ROS Statement: Those systems with pertinent positive or pertinent negative responses have been documented in the HPI. ROS Other: All systems not noted in ROS Statement are negative. Past Medical History Past Medical History: Asthma, COPD, GERD/Reflux, Hypertension, Osteoarthritis (OA), Thyroid Disorder Additional Past Medical History / Comment(s): Anemia, chronic back pain see Dr. Polo for pain specialist History of Any Multi-Drug Resistant Organisms: None Reported Past Surgical History: Appendectomy, Cholecystectomy, Tubal Ligation Additional Past Surgical History / Comment(s): Lipoma removed from left shoulder Past Anesthesia/Blood Transfusion Reactions: No Reported Reaction Past Psychological History: Anxiety Smoking Status: Current every day smoker Past Alcohol Use History: Occasional Past Drug Use History: None Reported - Past Family History Father Family Medical History: Myocardial Infarction ([place]) Mother Family Medical History: AFIB Sister(s) Family Medical History: Cancer, Deep Vein Thrombosis (DVT) General Exam General appearance: alert, in no apparent distress Head exam: Present: atraumatic, normocephalic Eye exam: Present: normal appearance, PERRL ENT exam: Present: normal exam Neck exam: Present: normal inspection. Absent: tenderness, meningismus Respiratory exam: Present: normal lung sounds bilaterally. Absent: respiratory distress, wheezes Cardiovascular Exam: Present: regular rate, normal rhythm GI/Abdominal exam: Present: soft. Absent: distended, tenderness Extremities exam: Present: normal inspection, normal capillary refill. Absent: pedal edema, calf tenderness Neurological exam: Present: alert, oriented X3, CN II-XII intact. Absent: motor sensory deficit Psychiatric exam: Present: normal affect, normal mood Skin exam: Present: warm, dry, intact. Absent: cyanosis, diaphoretic Course Vital Signs 10/03/21 10/03/21 20:33 21:04 Temperature 98 F Pulse Rate 84 84 Respiratory 18 Rate Blood Pressure 180/110 190/127 O2 Sat by Pulse 100 99 Oximetry EKG Findings - EKG Comments: EKG Findings:: EKG: Sinus rhythm rate of 83, [place] interval 163, QRS duration 83, QTC 49, no ST segment elevation, T-wave inversion in lead 3 Medical Decision Making - Medical Decision Making 56 yo female with chief complaint chest pain. Patient is hypotensive upon arrival. She had a substernal chest pain which is mostly resolved. She has no prior history of CAD. EKG shows some T-wave inversion inferiorly, no ST segment elevation. Chest x-ray shows no acute abnormality. She has normal laboratory testing including negative d-dimer and negative troponin. Given her risk factor she will be kept in observation for serial cardiac enzymes, telemetry, cardiology consultation. Case discussed with Dr. Fowler who will admit. - Lab Data Result diagrams: 10/03/21 20:57 10/03/21 20:57 Lab Results 10/03/21 10/03/21 10/03/21 Range/Units 20:57 20:57 20:57 WBC 6.0 (3.8-10.6) k/uL RBC 4.56 (3.80-5.40) m/uL Hgb 12.7 (11.4-16.0) gm/dL Hct 41.2 (34.0-46.0) % MCV 90.4 (80.0-100.0) fL MCH 27.9 (25.0-35.0) pg MCHC 30.9 L (31.0-37.0) g/dL RDW 14.7 (11.5-15.5) % Plt Count 249 (150-450) k/uL MPV 7.3 Neutrophils % 61 % Lymphocytes % 30 % Monocytes % 5 % Eosinophils % 2 % Basophils % 1 % Neutrophils # 3.6 (1.3-7.7) k/uL Lymphocytes # 1.8 (1.0-4.8) k/uL Monocytes # 0.3 (0-1.0) k/uL Eosinophils # 0.1 (0-0.7) k/uL Basophils # 0.1 (0-0.2) k/uL PT 10.3 (9.0-12.0) sec INR 0.9 (<1.2) APTT 26.2 (22.0-30.0) sec D-Dimer 0.29 (<0.60) mg/L FEU Sodium 140 (137-145) mmol/L Potassium 3.7 (3.5-5.1) mmol/L Chloride 109 H (98-107) mmol/L Carbon Dioxide 25 (22-30) mmol/L Anion Gap 6 mmol/L BUN 15 (7-17) mg/dL Creatinine 0.88 (0.52-1.04) mg/dL Est GFR (CKD-EPI)AfAm 84 (>60 ml/min/1.73 sqM) Est GFR (CKD-EPI)NonAf 73 (>60 ml/min/1.73 sqM) Glucose 96 (74-99) mg/dL Calcium 9.3 (8.4-10.2) mg/dL Magnesium 1.9 (1.6-2.3) mg/dL Total Bilirubin 0.4 (0.2-1.3) mg/dL AST 27 (14-36) U/L ALT 25 (4-34) U/L Alkaline Phosphatase 74 (38-126) U/L Troponin I (0.000-0.034) ng/mL NT-Pro-B Natriuret Pep pg/mL Total Protein 7.1 (6.3-8.2) g/dL Albumin 4.3 (3.5-5.0) g/dL Lipase 127 (23-300) U/L 10/03/21 10/03/21 Range/Units 20:57 20:57 WBC (3.8-10.6) k/uL RBC (3.80-5.40) m/uL Hgb (11.4-16.0) gm/dL Hct (34.0-46.0) % MCV (80.0-100.0) fL MCH (25.0-35.0) pg MCHC (31.0-37.0) g/dL RDW (11.5-15.5) % Plt Count (150-450) k/uL MPV Neutrophils % % Lymphocytes % % Monocytes % % Eosinophils % % Basophils % % Neutrophils # (1.3-7.7) k/uL Lymphocytes # (1.0-4.8) k/uL Monocytes # (0-1.0) k/uL Eosinophils # (0-0.7) k/uL Basophils # (0-0.2) k/uL PT (9.0-12.0) sec INR (<1.2) APTT (22.0-30.0) sec D-Dimer (<0.60) mg/L FEU Sodium (137-145) mmol/L Potassium (3.5-5.1) mmol/L Chloride (98-107) mmol/L Carbon Dioxide (22-30) mmol/L Anion Gap mmol/L BUN (7-17) mg/dL Creatinine (0.52-1.04) mg/dL Est GFR (CKD-EPI)AfAm (>60 ml/min/1.73 sqM) Est GFR (CKD-EPI)NonAf (>60 ml/min/1.73 sqM) Glucose (74-99) mg/dL Calcium (8.4-10.2) mg/dL Magnesium (1.6-2.3) mg/dL Total Bilirubin (0.2-1.3) mg/dL AST (14-36) U/L ALT (4-34) U/L Alkaline Phosphatase (38-126) U/L Troponin I <0.012 (0.000-0.034) ng/mL NT-Pro-B Natriuret Pep 150 pg/mL Total Protein (6.3-8.2) g/dL Albumin (3.5-5.0) g/dL Lipase (23-300) U/L Disposition Clinical Impression: Chest pain Disposition: ADMITTED IP TO THIS HOSP Condition: Stable Is patient prescribed a controlled substance at d/c from ED?: No Referrals: Riley Govea MD [Primary Care Provider] - 1-2 days Time of Disposition: 22:03
[2021-10-03 21:07] LABS: Basophils # (A) 0.1 k/uL (0-0.2); Basophils % (A) 1 %; Eosinophils # (A) 0.1 k/uL (0-0.7); Eosinophils % (A) 2 %; HCT 41.2 % (34.0-46.0); HGB 12.7 gm/dL (11.4-16.0); Lymphocytes # (A) 1.8 k/uL (1.0-4.8); Lymphocytes % (A) 30 %; MCH 27.9 pg (25.0-35.0); MCHC 30.9 g/dL (31.0-37.0); MCV 90.4 fL (80.0-100.0); Mean Platelet Volume 7.3; Monocytes # (A) 0.3 k/uL (0-1.0); Monocytes % (A) 5 %; Neutrophils # (A) 3.6 k/uL (1.3-7.7); Neutrophils % (A) 61 %; Platelet Count 249 k/uL (150-450); RBC 4.56 m/uL (3.80-5.40); RDW 14.7 % (11.5-15.5)
--- NOTE | 2021-10-03 21:22 | XR ---
EXAMINATION TYPE: XR chest 2V DATE OF EXAM: 10/03/2021 COMPARISON: 02/06/2021 HISTORY: Chest pain TECHNIQUE: FINDINGS: Heart and mediastinum are normal. Lungs are clear. Diaphragm is normal. Bony thorax appears intact. There is mild thoracic dextroscoliosis. IMPRESSION: No active cardiopulmonary disease. No change.
[2021-10-03] MEDS ORDERED: SODIUM CHLORIDE 0.9% 500 ML 500 ML IV ONE (21:28)
[2021-10-03] MEDS ORDERED: cloNIDine HCL 0.1 MG TAB PO STA (21:28)
[2021-10-03 21:34] LABS: INR 0.9 (<1.2); Partial Thromboplastin Time 26.2 sec (22.0-30.0); Prothrombin Time 10.3 sec (9.0-12.0)
[2021-10-03 21:35] LABS: Albumin 4.3 g/dL (3.5-5.0); Calcium 9.3 mg/dL (8.4-10.2); Magnesium 1.9 mg/dL (1.6-2.3); Potassium 3.7 mmol/L (3.5-5.1); Total Bilirubin 0.4 mg/dL (0.2-1.3); Total Protein 7.1 g/dL (6.3-8.2)
[2021-10-03] MEDS ORDERED: PANTOPRAZOLE 40 MG/10 ML VIAL IVP STA (21:55)
[2021-10-03] MEDS ORDERED: ASPIRIN 325 MG TAB PO STA (21:55)
[2021-10-03] MEDS ORDERED: ACETAMINOPHEN TAB 325 MG TAB PO PRN (21:56)
[2021-10-03] MEDS ORDERED: MORPHINE SULFATE 4 MG/ML SYRINGE IV PRN (21:56)
[2021-10-03] MEDS ORDERED: NALOXONE 0.4 MG/ML 1 ML VIAL IV PRN (21:56)
[2021-10-03] MEDS ORDERED: LORazepam 2 MG/ML INJ IV PRN (21:56)
[2021-10-03] MEDS ORDERED: hydrALAZINE HCL 20 MG/ML 1 ML VIAL IVP STA (22:22)
[2021-10-04] MEDS ORDERED: SODIUM CHLORIDE 0.9% 1,000 ML IV STA (08:40)
[2021-10-04] MEDS: clonazePAM 0.5 MG TAB PO SCH ×2 (08:47→08:54)
[2021-10-04] MEDS ORDERED: atenoloL 25 MG TAB PO SCH (09:00)
[2021-10-04] MEDS ORDERED: LOSARTAN-HCTZ 50-12.5 MG 1 EACH TAB PO SCH (09:00)
[2021-10-04] MEDS ORDERED: amLODIPine 10 MG TAB PO SCH (09:00)
[2021-10-04] MEDS ORDERED: cloNIDine HCL 0.1 MG TAB PO SCH (09:00)
--- NOTE | 2021-10-04 10:28 | P.CRDCN ---
History of Present Illness History of present illness: - . HPI: This patient has history of hypertension, bronchial asthma/COPD, she comes into the hospital with a nondescript substernal chest tightness randomly lasts for about 30 seconds to 1 minute describes it sometimes as a burning sensation. After and I will have blood pressure was found to be elevated but this has improved since. She is currently a smoker of one pack a day. She has had a previous negative stress echo in 2016. At the time of my evaluation she is asymptomatic but indicates to me that she does have chest tightness and pressure randomly without a consistent relationship to physical exercise. She has no palpitations no syncope. She does have some shortness of breath. She also uses is inhalers for her COPD.. RELEVANT PAST MEDICAL HISTORY: Remarkable for bronchial last small COPD hypertension hypothyroidism. She is status post cholecystectomy appendectomy a nd tubal ligation and also a lipoma removal from the left scapular area.. MEDICATIONS: See chart] ALLERGIES:See chart]. REVIEW OF SYSTEMS:Remarkable for random episodes of chest tightness. She does not have any hematemesis melena genitourinary symptoms fever with chills or cough with expectoration.]. PHYSICIAL EXAM:Vital signs stable no JVD or carotid bruit S1-S2 heard normally no significant murmurs lungs are clear abdomen is soft nontender lower axis reveal normal pulses no edema central nervous system is grossly within normal limits]. IMPRESSION: 1. Atypical chest pain]. 2. Accelerated hypertension. 3. Smoking and COPD. 4.]. 5.]. RECOMMENDATIONS:Patient's chest pain is atypical but she has moderate risk factors. We will optimize BP control perform a stress echo and if this is n ormal she can be discharged. Discussed my thoughts in detail with the patient]. Past Medical History Past Medical History: Asthma, COPD, GERD/Reflux, Hypertension, Osteoarthritis (OA), Thyroid Disorder Additional Past Medical History / Comment(s): Anemia, chronic back pain see Dr. Polo for pain specialist History of Any Multi-Drug Resistant Organisms: None Reported Past Surgical History: Appendectomy, Cholecystectomy, Tubal Ligation Additional Past Surgical History / Comment(s): Lipoma removed from left shoulder Past Anesthesia/Blood Transfusion Reactions: No Reported Reaction Past Psychological History: Anxiety Smoking Status: Current every day smoker Past Alcohol Use History: Occasional Past Drug Use History: None Reported - Past Family History Father Family Medical History: Myocardial Infarction ([place]) Mother Family Medical History: AFIB Sister(s) Family Medical History: Cancer, Deep Vein Thrombosis (DVT) Medications and Allergies Home Medications Medication Instructions Recorded Confirmed Type atenoloL 25 mg PO DAILY #30 tablet 09/07/17 10/04/21 Rx Omeprazole 20 mg PO DAILY 12/29/17 10/04/21 History cloNIDine HCL [Catapres] 0.1 mg PO DAILY 12/29/17 10/04/21 History Fluticasone Nasal [place] [Flonase 2 spr EA NOSTRIL DAILY 10/15/20 10/04/21 History Nasal [place]] amLODIPine [Norvasc] 10 mg PO DAILY 10/15/20 10/04/21 History clonazePAM [KlonoPIN] 0.5 mg PO BID 10/15/20 10/04/21 History Albuterol Inhaler [Ventolin Hfa 2 puff INHALATION RT-Q4H PRN 10/04/21 10/04/21 History Inhaler] Fluticasone/Umeclidin/Vilanter 1 puff INHALATION RT-DAILY 10/04/21 10/04/21 History [Trelegy Ellipta 200-62.5-25] Ipratropium-Albuterol Nebulize 3 ml INHALATION RT-QID PRN 10/04/21 10/04/21 History [Duoneb 0.5 mg-3 mg/3 ml Soln] Meloxicam [Mobic] 15 mg PO DAILY 10/04/21 10/04/21 History Naproxen [Naprosyn] 500 mg PO Q12HR 10/04/21 10/04/21 History Allergies Allergy/AdvReac Type Severity Reaction Status Date / Time No Known Allergies Allergy Verified 10/03/21 20:36 Physical Exam Vitals: Vital Signs Temp Pulse Pulse Resp BP BP Pulse Ox 10/04/21 07:00 97.9 F 77 18 134/100 100 10/04/21 05:38 83 16 115/78 83 L 10/04/21 02:10 79 18 127/87 99 10/03/21 23:11 86 18 144/116 97 10/03/21 22:21 77 20 195/126 98 10/03/21 22:09 81 18 195/126 100 10/03/21 21:04 84 190/127 99 10/03/21 20:33 98 F 84 18 180/110 100 Intake and Output 10/03/21 10/04/21 10/04/21 22:59 06:59 14:59 Other: Weight 82.554 kg Results 10/03/21 20:57 10/03/21 20:57 Cardiac Enzymes 10/03/21 10/03/21 10/03/21 Range/Units 20:57 20:57 23:27 AST 27 (14-36) U/L Troponin I <0.012 <0.012 (0.000-0.034) ng/mL 10/04/21 Range/Units 02:40 AST (14-36) U/L Troponin I <0.012 (0.000-0.034) ng/mL Coagulation 10/03/21 Range/Units 20:57 PT 10.3 (9.0-12.0) sec APTT 26.2 (22.0-30.0) sec CBC 10/03/21 Range/Units 20:57 WBC 6.0 (3.8-10.6) k/uL RBC 4.56 (3.80-5.40) m/uL Hgb 12.7 (11.4-16.0) gm/dL Hct 41.2 (34.0-46.0) % Plt Count 249 (150-450) k/uL Comprehensive Metabolic Panel 10/03/21 Range/Units 20:57 Sodium 140 (137-145) mmol/L Potassium 3.7 (3.5-5.1) mmol/L Chloride 109 H (98-107) mmol/L Carbon Dioxide 25 (22-30) mmol/L BUN 15 (7-17) mg/dL Creatinine 0.88 (0.52-1.04) mg/dL Glucose 96 (74-99) mg/dL Calcium 9.3 (8.4-10.2) mg/dL AST 27 (14-36) U/L ALT 25 (4-34) U/L Alkaline Phosphatase 74 (38-126) U/L Total Protein 7.1 (6.3-8.2) g/dL Albumin 4.3 (3.5-5.0) g/dL Current Medications Generic Name Dose Route Start Last Admin Trade Name Freq PRN Reason Stop Dose Admin Acetaminophen 650 mg 10/03/21 21:56 Acetaminophen Tab 325 Mg Tab PO Q6HR PRN Mild Pain or Fever > 100.5 Amlodipine Besylate 10 mg 10/04/21 09:00 10/04/21 08:47 Amlodipine 10 Mg Tab PO 10 mg DAILY FADI Administration Atenolol 25 mg 10/04/21 09:00 Atenolol 25 Mg Tab PO DAILY FADI Clonazepam 0.5 mg 10/04/21 09:00 10/04/21 08:54 Clonazepam 0.5 Mg Tab PO 0.25 mg DAILY FADI Administration HCTZ/Losartan Potassium 2 each 10/04/21 09:00 10/04/21 08:59 Losartan-Hctz 50-12.5 Mg 1 Each Tab PO 2 each DAILY FADI Administration Sodium Chloride 1,000 mls @ 100 mls/hr 10/04/21 08:40 10/04/21 08:46 Saline 0.9% IV 10/04/21 18:39 100 mls/hr .Q10H STA Administration Lorazepam 0.5 mg 10/03/21 21:56 10/03/21 22:26 Lorazepam 2 Mg/Ml Inj IV 0.5 mg Q6HR PRN Administration Anxiety Morphine Sulfate 4 mg 10/03/21 21:56 Morphine Sulfate 4 Mg/Ml Syringe IV Q4HR PRN Severe Pain Naloxone HCl 0.2 mg 10/03/21 21:56 Naloxone 0.4 Mg/Ml 1 Ml Vial IV Q2M PRN Opioid Reversal Intake and Output 10/03/21 10/04/21 10/04/21 22:59 06:59 14:59 Other: Weight 82.554 kg 10/03/21 20:57 10/03/21 20:57
[2021-10-04] MEDS ORDERED: PANTOPRAZOLE 40 MG TABLET PO STA (11:42)
[2021-10-04] MEDS ORDERED: PANTOPRAZOLE 40 MG/10 ML VIAL IVP SCH ×2 (11:45)
--- NOTE | 2021-10-04 12:46 | CA ---
Transthoracic Echo Report Name: Jelena Jaffe Age: 56 Gender: F : 1965 Exam Date: 10/04/2021 10:09 Exam Location: [facility] Ht (in): 64 Wt (lb): 180 Ordering Physician: Laurie Larkin Attending/Referring Phys: Food Scientist Susan Diaz RDCS Procedure CPT: Indications: Chest Pain Cardiac Hx: No cardiac hx Technical Quality: Good Contrast 1: Total Dose (mL): Contrast 2: Total Dose (mL): MEASUREMENTS (Male / Female) Normal Values 2D ECHO LV Diastolic Diameter PLAX 4.4 cm 4.2 - 5.9 / 3.9 - 5.3 cm LV Systolic Diameter PLAX 1.9 cm IVS Diastolic Thickness 1.4 cm 0.6 - 1.0 / 0.6 - 0.9 cm LVPW Diastolic Thickness 1.3 cm 0.6 - 1.0 / 0.6 - 0.9 cm LV Relative Wall Thickness 0.6 RV Internal Dim ED PLAX 3.0 cm M-MODE Aortic Root Diameter MM 3.2 cm LA Systolic Diameter MM 2.7 cm LA Ao Ratio MM 0.8 MV E Point Septal Separation 1.7 cm AV Cusp Separation MM 2.0 cm DOPPLER MV Area PHT 3.5 cm??? MR Peak Velocity 51.1 cm/s MR Peak Gradient 1.0 mmHg Mitral E Point Velocity 84.4 cm/s Mitral A Point Velocity 83.7 cm/s Mitral E to A Ratio 1.0 MV Deceleration Time 214.3 ms MV E' Velocity 6.5 cm/s Mitral E to MV E' Ratio 13.0 TR Peak Velocity 87.5 cm/s TR Peak Gradient 3.1 mmHg Right Ventricular Systolic Press 7.9 mmHg FINDINGS Left Ventricle Moderately increased septal wall thickness. Moderately increased posterior wall thickness. Left ventricular ejection fraction is estimated at 55-60 %. Left ventricular cavity size normal. Right Ventricle The right ventricle is normal in size and function. Right Atrium The right atrium is normal in size. Left Atrium The left atrium is normal in size. Mitral Valve Structurally normal mitral valve without significant stenosis or prolapse. There is mild mitral regurgitation. Aortic Valve Structurally normal aortic valve without significant sclerosis or stenosis. There is no aortic regurgitation. Tricuspid Valve Structurally normal tricuspid valve without significant stenosis. Pulmonary artery systolic pressure is normal. Mild tricuspid regurgitation. Pulmonic Valve Structurally normal pulmonic valve without significant stenosis. There is mild pulmonic regurgitation. Pericardium Normal pericardium without effusion. Aorta Normal aortic root dimension. CONCLUSIONS Normal LV size, moderate concentric LVH, preserved contractility. Mild mitral and tricuspid insufficiency. No pericardial effusion Previewed by: Dr. Zarina Mercedes MD (Electronically Signed) Final Date: 04 October 2021 12:46
--- NOTE | 2021-10-04 13:09 | CA ---
Stress Echo Report Jelena Jaffe Age: 56 Gender: F : 1965 Exam Date: 10/04/2021 10:26 Exam Location: [facility] Stress Ht (in): 64 Wt (lb): 182 Ordering Physician: Laurie Larkin Referring Physician: ,, Shucker: SAMANIEGO Technologist Procedure CPT: Indication: Chest Pain ICD-9 Codes: Rhythm: Patient History: htn Cardiac Medications: Medications in past 24 hours: Contrast: Stress Results Protocol: Xu Total dose(mL): Exercise Duration (min:sec): 7:[address] Depression (mm): Angina Score: Lyn Score: METS: 9.1 Resting HR: 83 Resting BP: 145 / 97 Peak HR: 145 Peak BP: 220 / 120 Max Predicted HR: 162 90 % Max Predicted HR Target HR: 138 Double Product: [id number] Stress Summary: BP Response: Reason for Termination: Reached target heart rate or work-load Cardiac Symptoms: Test terminated after reaching target heart rate (85% max predicted) ECG Analysis Resting ECG: Normal sinus rhythm without significant ST-T changes Stress ECG: Sinus tachycardia no evidence of any ST segment abnormality. There was a lot of artifact Arrhythmia: Echo Analysis Resting Echo: Normal LV size and function. Normal wall motion wall thickening of all segments Peak Echo Analysis: There is good augmentation of left ventricular wall motion wall thickening of all segments suggesting that there is no evidence of any stress-induced ischemia MEASUREMENTS (Male/Female) Normal Values CONCLUSIONS By EKG criteria this is a negative stress test with fair exercise capacity. Patient walked for 7 minutes 41 seconds maximal heart rate was 145 bpm there was a lot of artifact but no clearcut evidence to suggest ischemia and there was no angina. There was no significant arrhythmia Normal stress echocardiogram without evidence of ischemia Dr. Zarina Mercedes MD (Electronically Signed) Final Date: 04 October 2021 13:09
[2021-10-04 13:37] VITALS: BP 130/97; PULSE 72; RESP 16; TEMP 98.1
--- NOTE | 2021-10-04 22:33 | P.HPIM ---
History of Present Illness H&P Date: 10/04/21 This is a 56 year old female with medical history of Asthma, COPD, GERD/Reflux, hypertension, osteoarthritis, current daily smoker, alcohol use. She presents to the hospital with complaints of epigastric burning onset that lasted briefly. She denies palpation. Denies radiation. Denies lightheadedness, denies dizziness. No dyspnea. She was concerned and came in for evaluation. Troponin levels completed were negative x 3, EKG showing essentially nondiagnostic. She is also on medication for blood pressure. She does take naproxen and mobic for chronic lower back pain, and suspect patient has some gastritis from NSAID use. She has also been started on protonix. Patient admitted to the hospital for observation and consult placed to cardiology, and she will be taken for stress echo today. Diagnostic work up Chest Xray; negative for acute cardiopulmonary disease EKG; sinus rhythm rule out septal infarct, Heart rate 83, There is no QTc prolongation. Sodium 140, potassium 3.7, troponin negative x3, proBNP 150, BUN 15, creatinine 0.88 Vitals on admission, temp 98, heart rate 84, BP 180/110, 100% room air REVIEW OF SYSTEMS: CONSTITUTIONAL: No fever, no malaise, no fatigue. HEENT: No recent visual problems or hearing problems. Denied any sore throat. CARDIOVASCULAR: No chest pain, orthopnea, PND, no palpitations, no syncope. PULMONARY: No shortness of breath, no cough, no hemoptysis. GASTROINTESTINAL: No diarrhea, no nausea, no vomiting, no abdominal pain. Epigastric burning. NEUROLOGICAL: No headaches, no weakness, no numbness. HEMATOLOGICAL: Denies any bleeding or petechiae. GENITOURINARY: Denies any burning micturition, frequency, or urgency. MUSCULOSKELETAL/RHEUMATOLOGICAL: Denies any joint pain, swelling, or any muscle pain. ENDOCRINE: Denies any polyuria or polydipsia. The rest of the 14-point review of systems is negative. PHYSICAL EXAMINATION: GENERAL: The patient is alert and oriented x3, not in any acute distress. Well developed, well nourished. HEENT: Pupils are round and equally reacting to light. EOMI. No scleral icterus. No conjunctival pallor. Normocephalic, atraumatic. No pharyngeal erythema. No thyromegaly. CARDIOVASCULAR: S1 and S2 present. No murmurs, rubs, or gallops. PULMONARY: Chest is clear to auscultation, no wheezing or crackles. ABDOMEN: Soft, nontender, nondistended, normoactive bowel sounds. No palpable organomegaly. MUSCULOSKELETAL: No joint swelling or deformity. EXTREMITIES: No cyanosis, clubbing, or pedal edema. NEUROLOGICAL: Gross neurological examination did not reveal any focal deficits. SKIN: No rashes. Assessment and Plan Assessment Epigastric burning and discomfort, rule out ACS, cardiology has been consulted and patient will undergo stress echo today Acute gastritis from alcohol and NSAID use Hypertension, uncontrolled COPD / Asthma not in acute exacerbation Gastroesophageal Reflux Disease Osteoarthritis Chronic back pain with daily NSAID use, she does take meloxicam and naproxen at home which are currently placed on hold Anemia Daily tobacco use counseling provided Frequent alcohol use, counseled on cessation GI Prophylaxis Full Code Plan Pending stress echo Resume home medications Hold Meloxicam / Mobic Blood pressure medications have been adjusted by cardiology Protonix has been added Patient will be cleared for discharge today if stress echo is negative. The impression and plan of care has been dictated by Azeb Conte Nurse Practitioner as directed. Dr. Chris MD I have performed a history and physical examination and medical decision making of this patient, discussed the same with the dictator, and agree with the dictators assessment and plan as written, documented as a scribe. Based on total visit time, I have performed more than 50% of this visit. Past Medical History Past Medical History: Asthma, COPD, GERD/Reflux, Hypertension, Osteoarthritis (OA), Thyroid Disorder Additional Past Medical History / Comment(s): Anemia, chronic back pain see Dr. Polo for pain specialist History of Any Multi-Drug Resistant Organisms: None Reported Past Surgical History: Appendectomy, Cholecystectomy, Tubal Ligation Additional Past Surgical History / Comment(s): Lipoma removed from left shoulder Past Anesthesia/Blood Transfusion Reactions: No Reported Reaction Past Psychological History: Anxiety Smoking Status: Current every day smoker Past Alcohol Use History: Occasional Past Drug Use History: None Reported - Past Family History Father Family Medical History: Myocardial Infarction (MS) Mother Family Medical History: AFIB Sister(s) Family Medical History: Cancer, Deep Vein Thrombosis (DVT) Medications and Allergies Home Medications Medication Instructions Recorded Confirmed Type atenoloL 25 mg PO DAILY #30 tablet 09/07/17 10/04/21 Rx cloNIDine HCL [Catapres] 0.1 mg PO DAILY 12/29/17 10/04/21 History Fluticasone Nasal [place] [Flonase 2 spr EA NOSTRIL DAILY 10/15/20 10/04/21 Hi story Nasal [place]] amLODIPine [Norvasc] 10 mg PO DAILY 10/15/20 10/04/21 History clonazePAM [KlonoPIN] 0.5 mg PO BID 10/15/20 10/04/21 History Acetaminophen Tab [Tylenol] 650 mg PO Q6HR PRN tab 10/04/21 Rx Albuterol Inhaler [Ventolin Hfa 2 puff INHALATION RT-Q4H PRN 10/04/21 10/04/21 History Inhaler] Fluticasone/Umeclidin/Vilanter 1 puff INHALATION RT-DAILY 10/04/21 10/04/21 History [Trelegy Ellipta 200-62.5-25] Ipratropium-Albuterol Nebulize 3 ml INHALATION RT-QID PRN 10/04/21 10/04/21 History [Duoneb 0.5 mg-3 mg/3 ml Soln] Losartan-Hctz 50-12.5 mg [Hyzaar 2 each PO DAILY 30 Days #60 tab 10/04/21 Rx 50-12.5] Pantoprazole [Protonix] 40 mg PO AC-BRKFST #30 tab 10/04/21 Rx traMADol HCl [Ultram] 50 mg PO BID PRN 3 Days #6 tab 10/04/21 Rx Allergies Allergy/AdvReac Type Severity Reaction Status Date / Time No Known Allergies Allergy Verified 10/03/21 20:36 Physical Exam Vitals: Vital Signs Temp Pulse Pulse Resp BP BP Pulse Ox 10/04/21 07:00 97.9 F 77 18 134/100 100 10/04/21 05:38 83 16 115/78 83 L 10/04/21 02:10 79 18 127/87 99 10/03/21 23:11 86 18 144/116 97 10/03/21 22:21 77 20 195/126 98 10/03/21 22:09 81 18 195/126 100 10/03/21 21:04 84 190/127 99 10/03/21 20:33 98 F 84 18 180/110 100 Intake and Output 10/03/21 10/04/21 10/04/21 22:59 06:59 14:59 Other: Weight 82.554 kg Results CBC & Chem 7: 10/03/21 20:57 10/03/21 20:57 Labs: Abnormal Lab Results - Last 24 Hours (Table) 10/03/21 10/03/21 Range/Units 20:57 20:57 MCHC 30.9 L (31.0-37.0) g/dL Chloride 109 H (98-107) mmol/L Assessment and Plan Time with Patient: Less than 30
--- NOTE | 2021-10-04 22:42 | P.DS ---
Providers Date of admission: 10/03/21 21:56 Attending physician: David Fowler Consults: 10/03/21 21:56 Consult Physician Routine Consulting Provider: Herminia Barker Consult Reason/Comments: CP Do you want consulting provider notified?: Yes Primary care physician: Riley Govea Hospital Course: Final Diagnosis Epigastric burning and discomfort, ACS has been ruled out, stress echonegative Acute gastritis from alcohol and NSAID use patinet has been started on protonix Hypertension, uncontrolled COPD / Asthma not in acute exacerbation maintained on trelegy Gastroesophageal Reflux Disease Osteoarthritis Chronic back pain with daily NSAID use, she does take meloxicam and naproxen at home which are currently placed on hold History of anemia per patient, unsure what kind, hemoglobin within normal limits this admission Daily tobacco use counseling provided Frequent alcohol use, counseled on cessation Full Code Discharge Disposition Patient is stable for discharge. Recommended to follow up with here PCP Dr Riley Govea in 1-2 day. Hospital Course This is a 56 year old female with medical history of Asthma, COPD, GERD/Reflux, hypertension, osteoarthritis, current daily smoker, alcohol use. She presents to the hospital with complaints of epigastric burning that lasted briefly. She denies palpation. Denies radiation. Denies lightheadedness, denies dizziness. No dyspnea. She was concerned and came in for evaluation. Labs on admission - Sodium 140, potassium 3.7, troponin negative x3, proBNP 150, BUN 15, creatinine 0.88, EKG showing essentially nondiagnostic. EKG; sinus rhythm rule out septal infarct, Heart rate 83, There is no QTc prolongation. There is no ST or T wave changes. Chest Xray; negative for acute cardiopulmonary disease. She is also on medication for blood pressure. On admission her blood pressure was found to be 180/110. She does take naproxen and mobic for chronic lower back pain, and suspect patient has some gastritis from NSAID use. She has also been started on protonix. Patient was admitted to the hospital for observation and consult placed to cardiology. Stress test is negative without evidence to suggest ischemia with no angina. There is also no significant arrythmia found. Patient has been started on hyzaar, and will continue on all other home blood pressure medications. She will also stop naproxen and meloxicam. Discussed using tylenol for pain management and 3 days of ultram was given for discharge. She is also discharge on oral protonix. Blood pressure is now 144/116 and patient has been cleared by cardiology for discharge. Patient is currently denying chest pain, chest pressure. She denies nausea, vomiting, or diarrhea. No sorthness of breath. She will be discharge today. Lungs are clear, S1 S2 auscultated, abdomen is soft and nontender. Focal nuerological exam is negative. The impression and plan of care has been dictated by Azeb Conte, Nurse Practitioner as directed. Dr. Chris MD I have performed a history and physical examination and medical decision making of this patient, discussed the same with the dictator, and agree with the dictators assessment and plan as written, documented as a scribe. Based on total visit time, I have performed more than 50% of this visit. Patient Condition at Discharge: Stable Plan - Discharge Summary Discharge Rx Participant: No New Discharge Prescriptions: New Losartan-Hctz 50-12.5 mg [Hyzaar 50-12.5] 2 each PO DAILY 30 Days #60 tab Acetaminophen Tab [Tylenol] 650 mg PO Q6HR PRN tab PRN Reason: Mild Pain Or Fever > 100.5 traMADol HCl [Ultram] 50 mg PO BID PRN 3 Days #6 tab PRN Reason: Pain Pantoprazole [Protonix] 40 mg PO AC-BRKFST #30 tab Continue atenoloL 25 mg PO DAILY #30 tablet cloNIDine HCL [Catapres] 0.1 mg PO DAILY clonazePAM [KlonoPIN] 0.5 mg PO BID amLODIPine [Norvasc] 10 mg PO DAILY Albuterol Inhaler [Ventolin Hfa Inhaler] 2 puff INHALATION RT-Q4H PRN PRN Reason: Shortness Of Breath Fluticasone Nasal [place] [Flonase Nasal [place]] 2 spr EA NOSTRIL DAILY Fluticasone/Umeclidin/Vilanter [Trelegy Ellipta 200-62.5-25] 1 puff INHALATION RT-DAILY Ipratropium-Albuterol Nebulize [Duoneb 0.5 mg-3 mg/3 ml Soln] 3 ml INHALATION RT-QID PRN PRN Reason: Shortness Of Breath Discontinued Omeprazole 20 mg PO DAILY Naproxen [Naprosyn] 500 mg PO Q12HR Meloxicam [Mobic] 15 mg PO DAILY Discharge Medication List atenoloL 25 mg PO DAILY #30 tablet 09/07/17 [Rx] cloNIDine HCL [Catapres] 0.1 mg PO DAILY 12/29/17 [History] Fluticasone Nasal [place] [Flonase Nasal [place]] 2 spr EA NOSTRIL DAILY 10/15/20 [History] amLODIPine [Norvasc] 10 mg PO DAILY 10/15/20 [History] clonazePAM [KlonoPIN] 0.5 mg PO BID 10/15/20 [History] Acetaminophen Tab [Tylenol] 650 mg PO Q6HR PRN tab 10/04/21 [Rx] Albuterol Inhaler [Ventolin Hfa Inhaler] 2 puff INHALATION RT-Q4H PRN 10/04/21 [History] Fluticasone/Umeclidin/Vilanter [Trelegy Ellipta 200-62.5-25] 1 puff INHALATION RT-DAILY 10/04/21 [History] Ipratropium-Albuterol Nebulize [Duoneb 0.5 mg-3 mg/3 ml Soln] 3 ml INHALATION RT-QID PRN 10/04/21 [History] Losartan-Hctz 50-12.5 mg [Hyzaar 50-12.5] 2 each PO DAILY 30 Days #60 tab 10/04/21 [Rx] Pantoprazole [Protonix] 40 mg PO AC-BRKFST #30 tab 10/04/21 [Rx] traMADol HCl [Ultram] 50 mg PO BID PRN 3 Days #6 tab 10/04/21 [Rx] Follow up Appointment(s)/Referral(s): Riely Govea MD [Primary Care Provider] - 1-2 days Ambulatory/Diagnostic Orders: Basic Metabolic Panel [LAB.AMB] Time Frame: 2 Days, Location: None Selected Patient Instructions/Handouts: How to Stop Smoking (DC), Diet for Stomach Ulcers and Gastritis (ED) Activity/Diet/Wound Care/Special Instructions: Stress test negative Patient has been started on Hyzaar (losartan hydrocholorthiazide combination) Repeat labs in 2-3 days to monitor sodium level Monitor for dizziness, lightheadedness When changing positions from sitting to standing, sit first for a minute before standing to avoid dizziness while starting a new blood pressure medication Stop Naproxen and Mobic Continue with oral protonix for acid reflux Avoid spicy and acidic foods Tylenol for pain management Can use tramadol as needed for severe pain, 3 days of medication has been provided on discharge Follow up with primary care in 1-2 days to evaluate effectiveness Do not drive, operate heavy machinery, or drink alcohol while using this medication
[2021-10-05] MEDS ORDERED: PANTOPRAZOLE 40 MG TABLET PO SCH (07:30)
== END 2021-10-04 14:32 ==
LOC: EC 20:10 → 6NMEDSUR 21:56
PROVIDERS: ADMIT Internal Medicine; ATTEND Internal Medicine
DX: R07.89 Other chest pain (principal); K29.00 Acute gastritis without bleeding; T39.395A Adverse effect of other nonsteroidal anti-inflammatory drugs [NSAID], initial encounter; K21.9 Gastro-esophageal reflux disease without esophagitis; I10 Essential (primary) hypertension; J44.9 Chronic obstructive pulmonary disease, unspecified; E03.9 Hypothyroidism, unspecified; D64.9 Anemia, unspecified; M19.90 Unspecified osteoarthritis, unspecified site; G89.29 Other chronic pain; M54.50 Low back pain, unspecified; F17.210 Nicotine dependence, cigarettes, uncomplicated; F41.9 Anxiety disorder, unspecified; Z72.89 Other problems related to lifestyle; Z71.6 Tobacco abuse counseling; Z79.51 Long term (current) use of inhaled steroids; Z79.1 Long term (current) use of non-steroidal anti-inflammatories (NSAID); Z79.899 Other long term (current) drug therapy; Z90.49 Acquired absence of other specified parts of digestive tract; Z98.51 Tubal ligation status; Z98.890 Other specified postprocedural states; Z82.49 Family history of ischemic heart disease and other diseases of the circulatory system; Z80.9 Family history of malignant neoplasm, unspecified
CPT/HCPCS: 96361; 96374; 96375; 99285; 36415; 93005; 93306; 93351; 85379; 83880; 80053; 83690; 83735; 84484 ×2; 85025; 85610; 85730; 71046; G0378 ×2; J2060; J0360; C9113

== ENCOUNTER → 2021-10-28 | Outpatient (CLI) | payer OTHER ==
--- NOTE | 2021-10-28 14:54 | XR ---
Right foot HISTORY: Right foot pain 3 views the right foot Degenerative changes are present at the metatarsophalangeal joint of the first digit, there is associ ated soft tissue swelling. Marginal spurring and joint space loss, subchondral sclerosis and possible subchondral geode formation noted, no evident soft tissue calcification. No fracture or dislocation. Spurring is present at the tibiotalar joint. There is a small plantar calcaneal spur. IMPRESSION: Findings felt most likely to represent osteoarthritis.
== END | disposition home or self-care (01) ==
LOC: RADXRMAIN 12:30
PROVIDERS: ATTEND Family Medicine
DX: M79.671 Pain in right foot (principal)

== ENCOUNTER → 2022-03-26 | Outpatient (CLI) | payer OTHER ==
[2022-03-26 18:16] LABS: Basophils # (A) 0.02 X 10*3/uL (0.00-0.10); Basophils % (A) 0.2 %; Eosinophils # (A) 0 X 10*3/uL (0.04-0.35); Eosinophils % (A) 0 %; HCT 37.9 % (37.2-46.3); Immature Grans, Automated 1.2 %; Lymphocytes # (A) 1.41 X 10*3/uL (0.90-5.00); Lymphocytes % (A) 13.5 %; MCH 28.2 pg (27.0-32.0); MCHC 31.7 g/dL (32.0-37.0); Monocytes % (A) 2.9 %; NRBC Per 100 WBC 0 /100 WBCS (0.0-0.0); Neutrophils # (A) 8.57 X 10*3/uL (1.80-7.70); Neutrophils % (A) 82.2 %; Platelet Count 346 X 10*3/uL (140-440); RBC 4.26 X 10*6/uL (4.10-5.20); RDW 14.5 % (11.5-14.5); WBC 10.42 X 10*3/uL (4.50-10.00)
[2022-03-26 18:34] LABS: ALT 34 U/L (8-44); AST 20 U/L (13-35); African American GFR (CKD) 93.8 (60.0-200.0); Albumin 4.5 g/dL (3.8-4.9); Albumin/Globulin Ratio 1.64 (1.60-3.17); Alkaline Phosphatase 71 U/L (41-126); BUN/Creat Ratio 23.43 Ratio (12.00-20.00); Blood Urea Nitrogen 18.7 mg/dL (9.0-27.0); Calcium 9.7 mg/dL (8.7-10.3); Carbon Dioxide 25.1 mmol/L (20.0-27.5); Chloride 107 mmol/L (96-109); Chol/HDL Ratio 3.06 Ratio; Globulin 2.8 g/dL (1.6-3.3); Glucose 118 mg/dL (70-110); LDL Cholesterol,Calculated 104.9 mg/dL (0.0-131.0); Non-African American GFR(CKD) 80.9 (60.0-200.0); Potassium 3.9 mmol/L (3.5-5.5); Sodium 143 mmol/L (135-145); Total Protein 7.3 g/dL (6.2-8.2); VLDL Calculation 8.78 mg/dL (5.00-40.00)
== END | disposition home or self-care (01) ==
LOC: LABWHC1 09:08
PROVIDERS: ATTEND Family Medicine
DX: E78.5 Hyperlipidemia, unspecified (principal)
CPT/HCPCS: 36415; 80053; 80061; 84439; 84443; 85025

== ENCOUNTER → 2022-04-21 | Outpatient (CLI) | payer OTHER ==
--- NOTE | 2022-04-24 13:18 | MM ---
Reason for Exam: Screening (asymptomatic). Last mammogram was performed 1 year(s) and 2 month(s) ago. Patient History: Menarche at age 14. First Full-Term at age 18. Postmenopausal. Hormonal Contraceptives for 2 years, 6 months. 1989, Excisional Biopsy on the Right side. 07/07/2011, Benign Core Biopsy on the right side. 08/06/2007, Benign Core Biopsy on the left side. 08/06/2007, Benign Core Biopsy on the right side. Risk Values: Jen 5 year model risk: 1.7%. NCI Lifetime model risk: 9.1%. Prior Study Comparison: 02/09/2017 Bilateral Screening Mammogram, [facility]. 03/22/2018 Bilateral Screening Mammogram, [facility]. 02/04/2021 Bilateral Screening Mammogram, [facility]. Tissue Density: There are scattered fibroglandular densities. Findings: Analyzed By CAD. Previously biopsied mass anterior right breast. There is chronic nodularity posterior lateral right breast. Additional microclip lateral left breast from prior biopsy and associated focal asymmetry. Subtle nodular asymmetric density or posterior medial left cc view may be new or more defined. No clear correlate on the MLO view. There are evaluation is recommended. Overall Assessment: Incomplete: need additional imaging evaluation, BI-RAD 0 Management: Special View Mammogram of the left breast. Including 3-D XCCM, spot 3-D CC, 3-D CC rolled, and 3-D lateral views (to include far posterior tissues). Targeted left breast ultrasound if any persisting abnormality. [facility] will attempt to contact patient to return for supplemental views and ultrasound if indicated. Electronically signed and approved by: Mert Nelson M.D. Radiologist
== END | disposition home or self-care (01) ==
LOC: RADMAMWWP 11:01
PROVIDERS: ATTEND Family Medicine
DX: Z12.31 Encounter for screening mammogram for malignant neoplasm of breast (principal); Z78.0 Asymptomatic menopausal state; Z98.890 Other specified postprocedural states
CPT/HCPCS: 77067

== ENCOUNTER → 2022-05-18 | Outpatient (CLI) | payer OTHER ==
--- NOTE | 2022-05-18 09:26 | MM ---
Reason for Exam: Additional evaluation requested from abnormal screening. Last screening mammogram was performed less than 1 month ago. Patient History: Menarche at age 14. First Full-Term at age 18. Postmenopausal. Hormonal Contraceptives for 2 years, 6 months. 1989, Excisional Biopsy on the Right side. 07/07/2011, Benign Core Biopsy on the right side. 08/06/2007, Benign Core Biopsy on the left side. 08/06/2007, Benign Core Biopsy on the right side. Risk Values: Jen 5 year model risk: 1.7%. NCI Lifetime model risk: 9.1%. Prior Study Comparison: 03/22/2018 Bilateral Screening Mammogram, [facility]. 02/04/2021 Bilateral Screening Mammogram, [facility]. 04/21/2022 Bilateral MG screening mammo w CAD, [facility]. Tissue Density: Left: There are scattered fibroglandular densities. Findings: Analyzed By CAD. Biopsy clip within the left breast. Asymmetry within the posterior aspect of the left breast does not persist with compression on the CC view. Overall Assessment: Benign, BI-RAD 2 Management: Screening Mammogram of both breasts in 1 year. A clinical breast exam by your physician is recommended on an annual basis and results should be correlated with mammographic findings. This exam should not preclude additional follow-up of suspicious palpable abnormalities. Results were given to the patient verbally at the time of exam. Electronically signed and approved by: Mehrdad Monet D.O.
== END | disposition home or self-care (01) ==
LOC: RADMAMWWP 08:53
PROVIDERS: ATTEND Family Medicine
DX: R92.8 Other abnormal and inconclusive findings on diagnostic imaging of breast (principal); Z78.0 Asymptomatic menopausal state
CPT/HCPCS: 77065

== ENCOUNTER 2022-10-06 18:39 | Emergency (ER) | payer OTHER ==
[2022-10-06 18:43] VITALS: TEMP 97.6
--- NOTE | 2022-10-06 19:55 | ED ---
URI HPI - General Chief Complaint: Upper Respiratory Infection Stated Complaint: sinus issues Time Seen by Provider: 10/06/22 19:21 Source: patient Mode of arrival: ambulatory Limitations: no limitations - History of Present Illness Initial Comments: 57-year-old female presenting with chief complaint of URI-like symptoms. Patient is complaining of nasal congestion as well as cough. She states that it feels like an exacerbation of her ALLERGIES. She admits to mild sore throat. No difficulty breathing or swallowing. No chest pain. No nausea, vomiting, abdominal pain. No fevers or chills. No ear pain. - Related Data Home Medications Medication Instructions Recorded Confirmed cloNIDine HCL [Catapres] 0.1 mg PO DAILY 12/29/17 10/04/21 Fluticasone Nasal [place] [Flonase 2 spr EA NOSTRIL DAILY 10/15/20 10/04/21 Nasal [place]] amLODIPine [Norvasc] 10 mg PO DAILY 10/15/20 10/04/21 clonazePAM [KlonoPIN] 0.5 mg PO BID 10/15/20 10/04/21 Albuterol Inhaler [Ventolin Hfa 2 puff INHALATION RT-Q4H PRN 10/04/21 10/04/21 Inhaler] Fluticasone/Umeclidin/Vilanter 1 puff INHALATION RT-DAILY 10/04/21 10/04/21 [Trelegy Ellipta 200-62.5-25] Ipratropium-Albuterol Nebulize 3 ml INHALATION RT-QID PRN 10/04/21 10/04/21 [Duoneb 0.5 mg-3 mg/3 ml Soln] Previous Rx's Medication Instructions Recorded atenoloL 25 mg PO DAILY #30 tablet 09/07/17 Acetaminophen Tab [Tylenol] 650 mg PO Q6HR PRN tab 10/04/21 Losartan-Hctz 50-12.5 mg [Hyzaar 2 each PO DAILY 30 Days #60 tab 10/04/21 50-12.5] Pantoprazole [Protonix] 40 mg PO AC-BRKFST #30 tab 10/04/21 traMADol HCl [Ultram] 50 mg PO BID PRN 3 Days #6 tab 10/04/21 Meclizine [Antivert] 25 mg PO BID PRN #10 tab 06/03/22 Azithromycin [Zithromax Z Pack] 1 tab PO DIRECTED #6 tab 10/06/22 Allergies Allergy/AdvReac Type Severity Reaction Status Date / Time No Known Allergies Allergy Verified 10/06/22 18:43 Review of Systems ROS Statement: Those systems with pertinent positive or pertinent negative responses have been documented in the HPI. ROS Other: All systems not noted in ROS Statement are negative. Past Medical History Past Medical History: Asthma, COPD, GERD/Reflux, Hypertension, Osteoarthritis (OA), Thyroid Disorder Additional Past Medical History / Comment(s): Anemia, chronic back pain see Dr. Polo for pain specialist History of Any Multi-Drug Resistant Organisms: None Reported Past Surgical History: Appendectomy, Cholecystectomy, Tubal Ligation Additional Past Surgical History / Comment(s): Lipoma removed from left shoulder Past Anesthesia/Blood Transfusion Reactions: No Reported Reaction Past Psychological History: Anxiety Smoking Status: Current every day smoker Past Alcohol Use History: Occasional Past Drug Use History: None Reported - Past Family History Father Family Medical History: Myocardial Infarction (MT) Mother Family Medical History: AFIB Sister(s) Family Medical History: Cancer, Deep Vein Thrombosis (DVT) General Exam Limitations: no limitations General appearance: alert, in no apparent distress Head exam: Present: atraumatic, normocephalic, normal inspection Eye exam: Present: normal appearance, EOMI. Absent: scleral icterus, periorbital swelling ENT exam: Present: normal exam, normal oropharynx, mucous membranes moist Neck exam: Present: normal inspection, full ROM Respiratory exam: Present: normal lung sounds bilaterally. Absent: respiratory distress, wheezes, rales, rhonchi, stridor Cardiovascular Exam: Present: regular rate, normal rhythm, normal heart sounds. Absent: systolic murmur, diastolic murmur, rubs, gallop, clicks Neurological exam: Present: alert, oriented X3, CN II-XII intact Psychiatric exam: Present: normal affect, normal mood Skin exam: Present: warm, dry, intact, normal color. Absent: rash Course Vital Signs 10/06/22 10/06/22 18:41 21:41 Temperature 97.6 F Pulse Rate 86 79 Respiratory 20 18 Rate Blood Pressure 133/95 135/89 O2 Sat by Pulse 100 98 Oximetry Medical Decision Making - Medical Decision Making Was pt. sent in by a medical professional or institution (Dr., PA, CAN FILLER, urgent care, hospital, or correction...) When possible be specific @ -No Did you speak to anyone other than the patient for history (EMS, parent, family, police, friend...)? What history was obtained from this source @ -No Did you review nursing and triage notes (agree or disagree)? Why? @ -I reviewed and agree with nursing and triage notes Were old charts reviewed (outside hosp., previous admission, EMS record, old EKG, old radiological studies, urgent care reports/EKG's, correction records)? Report findings @ -No old charts were reviewed Differential Diagnosis (chest pain, altered mental status, abdominal pain women, abdominal pain men, vaginal bleeding, weakness, fever, dyspnea, syncope, headache, dizziness, GI bleed, back pain, seizure, CVA, palpatations, mental health, musculoskeletal)? @ -Differential includes pneumonia, bronchitis, URI, group A strep, this is not an all inclusive the last EKG interpreted by me (3pts min.). @ -As above X-rays interpreted by me (1pt min.). @ -Chest x-ray shows evidence of right lower lobe superior segment bronchopneumonia. CT interpreted by me (1pt min.). @ -None done U/S interpreted by me (1pt. min.). @ -None done What testing was considered but not performed or refused? (CT, X-rays, U/S, labs)? Why? @ -None What meds were considered but not given or refused? Why? @ -None Did you discuss the management of the patient with other professionals (professionals i.e. ALBERT Tubbs, CAN FILLER, lab, RT, psych nurse, high school social studies teacher, hypo dipper, teacher, division officer weapons department, transplant case manager)? Give summary @ -No Was smoking cessation discussed for >3mins.? @ -No Was critical care preformed (if so, how long)? @ -No Were there social determinants of health that impacted care today? How? (Homelessness, low income, unemployed, alcoholism, drug addiction, transport ation, low edu. Level, literacy, decrease access to med. care, snf, rehab)? @ -No Was there de-escalation of care discussed even if they declined (Discuss DNR or withdrawal of care, Hospice)? DNR status @ -No What co-morbidities impacted this encounter? (DM, HTN, Smoking, COPD, CAD, Cancer, CVA, ARF, Chemo, Hep., AIDS, mental health diagnosis, sleep apnea, morbid obesity)? @ -None Was patient admitted / discharged? Hospital course, mention meds given and route, prescriptions, significant lab abnormalities, going to OR and other pertinent info. @ -57-year-old female presenting with chief complaint of URI-like symptoms. On physical examination heart and lungs are clear to auscultation of light and exam. Patient is negative for influenza, RSV, croup, group A strep. Chest x- ray shows evidence of right lower lobe pneumonia. Patient will be treated with azithromycin. Educated on today's findings. Follow-up with PCP. Report back to ER with any new or worsening symptoms. Discussed return parameters and answered all questions. Patient conveyed verbal understanding and agreed to the plan. I discussed this case in detail with my attending Dr. Uriostegui Undiagnosed new problem with uncertain prognosis? @ -No Drug Therapy requiring intensive monitoring for toxicity (Heparin, Nitro, Insulin, Cardizem)? @ -No Were any procedures done? @ -No Diagnosis/symptom? @ -Community acquired Pneumonia Acute, or Chronic, or Acute on Chronic? @ -Acute Uncomplicated (without systemic symptoms) or Complicated (systemic symptoms)? @ -Uncomplicated Side effects of treatment? @ -No Exacerbation, Progression, or Severe Exacerbation? @ -No Poses a threat to life or bodily function? How? (Chest pain, USA, MT, pneumonia, PE, COPD, DKA, ARF, appy, cholecystitis, CVA, Diverticulitis, Homicidal, Suicidal, threat to staff... and all critical care pts) @ -Possible but Low likelihood in this case - Lab Data Lab Results 10/06/22 10/06/22 Range/Units 20:01 20:01 Influenza Type A (PCR) Not Detected (Not Detectd) Influenza Type B (PCR) Not Detected (Not Detectd) RSV (PCR) Not Detected (Not Detectd) SARS-CoV-2 (PCR) Not Detected (Not Detectd) Group A Strep (PCR) NOT DETECTED (Not Detectd) Disposition Clinical Impression: Bronchopneumonia Disposition: HOME SELF-CARE Condition: Good Instructions (If sedation given, give patient instructions): Community Acquired Pneumonia (ED) Additional Instructions: Follow-up with PCP. Report back to ER with any new or worsening symptoms. Take medication as prescribed. Prescriptions: Azithromycin [Zithromax Z Pack] 1 tab PO DIRECTED #6 tab Is patient prescribed a controlled substance at d/c from ED?: No Referrals: Riley Govea MD [Primary Care Provider] - 1-2 days Time of Disposition: 21:24
--- NOTE | 2022-10-06 20:33 | XR ---
EXAMINATION: XR chest 2V: 10/06/2022 7:40 PM CLINICAL INDICATION: cough. ED patient. TECHNIQUE: Departmental protocol COMPARISON: 06/03/2022 FINDINGS: There is added opacity over a 5 cm geographic zone in the right infrahilar position, with associated air bronchograms, suspicious for right lower lobe superior segment bronchopneumonia. The pleural spaces are negative. The cardiac silhouette is not enlarged. The remainder of the mediastinal silhouette is unremarkable. The skeletal structures and soft tissues are negative for acute findings. IMPRESSION: Findings suspicious for RLL superior segment bronchopneumonia. Recommend 8 week follow-up PA and lat eral chest radiographs (or CT), to prove resolution.
[2022-10-06 21:42] VITALS: BP 135/89; PULSE 79; RESP 18
== END 2022-10-06 21:42 | disposition home or self-care (01) ==
LOC: EC 18:39
DX: J18.0 Bronchopneumonia, unspecified organism (principal); J44.9 Chronic obstructive pulmonary disease, unspecified; I10 Essential (primary) hypertension; M19.90 Unspecified osteoarthritis, unspecified site; F41.9 Anxiety disorder, unspecified; F17.200 Nicotine dependence, unspecified, uncomplicated; Z79.1 Long term (current) use of non-steroidal anti-inflammatories (NSAID); Z79.899 Other long term (current) drug therapy; Z20.822 Contact with and (suspected) exposure to COVID-19; Z79.51 Long term (current) use of inhaled steroids
CPT/HCPCS: 71046; 87636; 87651; 99283

== ENCOUNTER 2022-12-22 14:54 | Emergency (ER) | payer OTHER ==
[2022-12-22] MEDS ORDERED: MAG HYDROX/AL HYDROX/SIMETH 30 ML, HYOSCYAMINE ELIXIR 10 ML, LIDOCAINE 2% GLYDO JELLY 1... PO STA ×3 (15:24)
[2022-12-22] MEDS ORDERED: SODIUM CHLORIDE 0.9% 500 ML 500 ML IV STA (15:24)
[2022-12-22] MEDS ORDERED: PANTOPRAZOLE 40 MG/10 ML VIAL IVP STA (15:24)
[2022-12-22] MEDS ORDERED: ONDANSETRON 4 MG/2 ML VIAL IVP STA (15:25)
[2022-12-22] MEDS ORDERED: DIPH,PERTUS(ACELL)TETVAC-LF 0.5 ML VIAL IM ONE (15:32)
--- NOTE | 2022-12-22 15:47 | ED ---
General Adult HPI - General Chief complaint: Abdominal Pain Stated complaint: pain when swallowing Time Seen by Provider: 12/22/22 15:17 Source: patient, RN notes reviewed, old records reviewed Mode of arrival: ambulatory Limitations: no limitations - History of Present Illness Initial comments: Patient is a 57-year-old female with past medical history remarkable for tobacco use, acid reflux, COPD, hypertension who presents emergency Department compla ining of burning epigastric pain that radiates from her epigastric region at the site of her chest with throat. States it is reminiscent of bad GERD. Has been present since she ate chili 3 days ago. Is more or less always there. Not responding to her normal Protonix. Has not attempted any other medications. Denies any other chest pain, shortness of breath, nausea, vomiting, abdominal pain, constipation, diarrhea. His no urinary complaints. Denies any vaginal discharge or bleeding. Please of endorses her GERD. Presents for further evaluation at this time. No cardiac history herself but it does run in her family. Patient does have hypertension.Patient states that the burning is bad and hurts when she swallows. - Related Data Home Medications Medication Instructions Recorded Confirmed cloNIDine HCL [Catapres] 0.1 mg PO DAILY 12/29/17 10/04/21 Fluticasone Nasal [place] [Flonase 2 spr EA NOSTRIL DAILY 10/15/20 10/04/21 Nasal [place]] amLODIPine [Norvasc] 10 mg PO DAILY 10/15/20 10/04/21 clonazePAM [KlonoPIN] 0.5 mg PO BID 10/15/20 10/04/21 Albuterol Inhaler [Ventolin Hfa 2 puff INHALATION RT-Q4H PRN 10/04/21 10/04/21 Inhaler] Fluticasone/Umeclidin/Vilanter 1 puff INHALATION RT-DAILY 10/04/21 10/04/21 [Trelegy Ellipta 200-62.5-25] Ipratropium-Albuterol Nebulize 3 ml INHALATION RT-QID PRN 10/04/21 10/04/21 [Duoneb 0.5 mg-3 mg/3 ml Soln] Previous Rx's Medication Instructions Recorded atenoloL 25 mg PO DAILY #30 tablet 09/07/17 Acetaminophen Tab [Tylenol] 650 mg PO Q6HR PRN tab 10/04/21 Losartan-Hctz 50-12.5 mg [Hyzaar 2 each PO DAILY 30 Days #60 tab 10/04/21 50-12.5] Pantoprazole [Protonix] 40 mg PO AC-BRKFST #30 tab 10/04/21 traMADol HCl [Ultram] 50 mg PO BID PRN 3 Days #6 tab 10/04/21 Meclizine [Antivert] 25 mg PO BID PRN #10 tab 06/03/22 Azithromycin [Zithromax Z Pack] 1 tab PO DIRECTED #6 tab 10/06/22 Allergies Allergy/AdvReac Type Severity Reaction Status Date / Time No Known Allergies Allergy Verified 12/22/22 15:08 Review of Systems ROS Statement: Those systems with pertinent positive or pertinent negative responses have been documented in the HPI. Review of Systems: CONST: Denies fever EYES: Denies blurry vision ENT: Denies nasal congestion C/V: Endorses burning GERD-like chest pain RESP: Denies shortness of breath GI: Endorses abdominal pain, : Denies dysuria SKIN: Denies rash. MSK: Denies joint pain. NEURO: Denies headache ROS Other: All systems not noted in ROS Statement are negative. Past Medical History Past Medical History: Asthma, COPD, GERD/Reflux, Hypertension, Osteoarthritis (OA), Thyroid Disorder Additional Past Medical History / Comment(s): Anemia, chronic back pain see Dr. Polo for pain specialist History of Any Multi-Drug Resistant Organisms: None Reported Past Surgical History: Appendectomy, Cholecystectomy, Tubal Ligation Additional Past Surgical History / Comment(s): Lipoma removed from left shoulder Past Anesthesia/Blood Transfusion Reactions: No Reported Reaction Past Psychological History: Anxiety Smoking Status: Current every day smoker Past Alcohol Use History: Occasional Past Drug Use History: None Reported - Past Family History Father Family Medical History: Myocardial Infarction (MT) Mother Family Medical History: AFIB Sister(s) Family Medical History: Cancer, Deep Vein Thrombosis (DVT) General Exam - General Exam Comments Initial Comments: General: Appears in no acute distress. HEAD: Normal with no signs of head trauma. EYES: PERRLA, EOMI, conjunctiva normal, no discharge. ENT: Hearing grossly intact, normal oropharynx. RESPIRATORY: Clear breath sounds bilaterally. No wheezes, rales, or rhonchi. C/V: Regular rate and rhythm. S1 and S2 auscultated, no edema, peripheral pulses 2+ and intact throughout ABD: Abdomen is soft, nondistended. Nontender. EXT: Normal range of motion, no obvious deformity SKIN: No rashes or lesions observed on exposed skin. NEURO: Alert and oriented 4. Limitations: no limitations Course Vital Signs 12/22/22 15:08 Temperature 96.7 F L Pulse Rate 73 Respiratory 18 Rate Blood Pressure 136/96 O2 Sat by Pulse 100 Oximetry Medical Decision Making - Medical Decision Making Was pt. sent in by a medical professional or institution (, PA, ASSEMBLY INSTRUCTIONS WRITER, urgent care, hospital, or snf...) When possible be specific @ -No Did you speak to anyone other than the patient for history (EMS, parent, family, police, friend...)? What history was obtained from this source @ -No Did you review nursing and triage notes (agree or disagree)? Why? @ -I reviewed and agree with nursing and triage notes Were old charts reviewed (outside hosp., previous admission, EMS record, old EKG, old radiological studies, urgent care reports/EKG's, snf records)? Report findings @ -No old charts were reviewed Differential Diagnosis (chest pain, altered mental status, abdominal pain women, abdominal pain men, vaginal bleeding, weakness, fever, dyspnea, syncope, headache, dizziness, GI bleed, back pain, seizure, CVA, palpatations, mental health, musculoskeletal)? @ -Differential Chest Pain: Stable Angina, Unstable Angina, STEMI, NSTEMI Aortic Dissection, Pneumothorax, Musculoskeletal, Esophageal Spasm GERD, Cholecystitis, Pancreatitis, Zoster, this is not meant to be an all-inclusive list. EKG interpreted by me (3pts min.). @ -As above X-rays interpreted by me (1pt min.). @ -Chest x-ray shows no obvious acute cardiopulmonary process. CT interpreted by me (1pt min.). @ -None done U/S interpreted by me (1pt. min.). @ -None done What testing was considered but not performed or refused? (CT, X-rays, U/S, l abs)? Why? @ -None What meds were considered but not given or refused? Why? @ -None Did you discuss the management of the patient with other professionals (professionals i.e. , PA, ASSEMBLY INSTRUCTIONS WRITER, lab, RT, psych nurse, social media executive, technology training associate, teacher, motorcycle police officer, special education case manager)? Give summary @ -No Was smoking cessation discussed for >3mins.? @ -yes Was critical care preformed (if so, how long)? @ -No Were there social determinants of health that impacted care today? How? (Homelessness, low income, unemployed, alcoholism, drug addiction, transportation, low edu. Level, literacy, decrease access to med. care, fpc, rehab)? @ -No Was there de-escalation of care discussed even if they declined (Discuss DNR or withdrawal of care, Hospice)? DNR status @ -No What co-morbidities impacted this encounter? (DM, HTN, Smoking, COPD, CAD, Canc er, CVA, ARF, Chemo, Hep., AIDS, mental health diagnosis, sleep apnea, morbid obesity)? @ -None Was patient admitted / discharged? Hospital course, mention meds given and route, prescriptions, significant lab abnormalities, going to OR and other pertinent info. @ -Based on the patient's presentation and physical exam, I do believe this is likely her acid reflux and she has a history of it and hasn't been ongoing for multiple days which is typical for her. I recommended the family rule out cardiac etiology at this time as needed presentation considering her age. We'll obtain screening cardiopulmonary labs as well as abdominal laboratory studies. Patient will be symptomatically treated with IV fluids, Protonix, Zofran, as well as an oral GI cocktail. Patient states she did cut her ankle on a piece of metal outside of days ago and it is uncomplicated appearing. Patient basically. I offered to update her tetanus and she accepted. Patient was in agreement this plan. Vital signs are within acceptable limits. Chest x-ray shows no obvious acute cardio 100 process. EKG shows no evidence of acute ischemia with chronic findings. Laboratory studies are within acceptable limits including an undetectable troponin. On Reevaluation, patient's symptoms have resolved following treatment of acid reflux. Symptoms likely all stemmed from her acid reflux. This is further supported of a negative cardiac workup with multiple days of symptoms. I believe is safer to be discharged home at this time and she was in agreement with the plan. Strict return precautions were discussed. Recommended she obtain Tums or Mylanta to help with her acid reflux symptoms at home. I instructed the patient to follow up with their PCP in the next 1-3 days. I explained that the patient should return to the emergency department if they experience any worsening symptoms. Strict return precautions were discussed with the patient. The patient expressed understanding of these instructions. I answered all questions that the patient had. The patient was discharged home in good condition with their prescriptions and follow up information. Undiagnosed new problem with uncertain prognosis? @ -No Drug Therapy requiring intensive monitoring for toxicity (Heparin, Nitro, Insulin, Cardizem)? @ -No Were any procedures done? @ -No Diagnosis/symptom? @ -Nicotine dependence Acute, or Chronic, or Acute on Chronic? @ -Chronic Uncomplicated (without systemic symptoms) or Complicated (systemic symptoms)? @ -Uncomplicated Side effects of treatment? @ -No Exacerbation, Progression, or Severe Exacerbation? @ -No Poses a threat to life or bodily function? How? (Chest pain, USA, MT, pneumonia, PE, COPD, DKA, ARF, appy, cholecystitis, CVA, Diverticulitis, Homicidal, Suicidal, threat to staff... and all critical care pts) @ -No Diagnosis/symptom? @ -GERD Acute, or Chronic, or Acute on Chronic? @ -Acute on chronic Uncomplicated (without systemic symptoms) or Complicated (systemic symptoms)? @ -Uncomplicated Side effects of treatment? @ -none Exacerbation, Progression, or Severe Exacerbation] @ -no Poses a threat to life or bodily function? @ -no - Lab Data Result diagrams: 12/22/22 15:46 12/22/22 15:46 Lab Results 12/22/22 12/22/22 12/22/22 Range/Units 15:46 15:46 15:46 WBC 5.9 (3.8-10.6) k/uL RBC 4.31 (3.80-5.40) m/uL Hgb 12.7 (11.4-16.0) gm/dL Hct 38.0 (34.0-46.0) % MCV 88.3 (80.0-100.0) fL MCH 29.4 (25.0-35.0) pg MCHC 33.3 (31.0-37.0) g/dL RDW 14.5 (11.5-15.5) % Plt Count 225 (150-450) k/uL MPV 7.8 Neutrophils % 66 % Lymphocytes % 26 % Monocytes % 4 % Eosinophils % 2 % Basophils % 0 % Neutrophils # 3.9 (1.3-7.7) k/uL Lymphocytes # 1.5 (1.0-4.8) k/uL Monocytes # 0.2 (0-1.0) k/uL Eosinophils # 0.1 (0-0.7) k/uL Basophils # 0.0 (0-0.2) k/uL PT 10.5 (9.0-12.0) sec INR 1.0 (<1.2) APTT 25.1 (22.0-30.0) sec Sodium 139 (137-145) mmol/L Potassium 3.5 (3.5-5.1) mmol/L Chloride 104 (98-107) mmol/L Carbon Dioxide 30 (22-30) mmol/L Anion Gap 5 mmol/L BUN 18 H (7-17) mg/dL Creatinine 0.88 (0.52-1.04) mg/dL Est GFR (CKD-EPI)AfAm 84 (>60 ml/min/1.73 sqM) Est GFR (CKD-EPI)NonAf 73 (>60 ml/min/1.73 sqM) Glucose 85 (74-99) mg/dL Calcium 9.3 (8.4-10.2) mg/dL Magnesium 2.0 (1.6-2.3) mg/dL Total Bilirubin 1.0 (0.2-1.3) mg/dL AST 26 (14-36) U/L ALT 26 (4-34) U/L Alkaline Phosphatase 67 (38-126) U/L Troponin I (0.000-0.034) ng/mL Total Protein 7.0 (6.3-8.2) g/dL Albumin 3.9 (3.5-5.0) g/dL Lipase 63 (23-300) U/L 12/22/22 Range/Units 15:46 WBC (3.8-10.6) k/uL RBC (3.80-5.40) m/uL Hgb (11.4-16.0) gm/dL Hct (34.0-46.0) % MCV (80.0-100.0) fL MCH (25.0-35.0) pg MCHC (31.0-37.0) g/dL RDW (11.5-15.5) % Plt Count (150-450) k/uL MPV Neutrophils % % Lymphocytes % % Monocytes % % Eosinophils % % Basophils % % Neutrophils # (1.3-7.7) k/uL Lymphocytes # (1.0-4.8) k/uL Monocytes # (0-1.0) k/uL Eosinophils # (0-0.7) k/uL Basophils # (0-0.2) k/uL PT (9.0-12.0) sec INR (<1.2) APTT (22.0-30.0) sec Sodium (137-145) mmol/L Potassium (3.5-5.1) mmol/L Chloride (98-107) mmol/L Carbon Dioxide (22-30) mmol/L Anion Gap mmol/L BUN (7-17) mg/dL Creatinine (0.52-1.04) mg/dL Est GFR (CKD-EPI)AfAm (>60 ml/min/1.73 sqM) Est GFR (CKD-EPI)NonAf (>60 ml/min/1.73 sqM) Glucose (74-99) mg/dL Calcium (8.4-10.2) mg/dL Magnesium (1.6-2.3) mg/dL Total Bilirubin (0.2-1.3) mg/dL AST (14-36) U/L ALT (4-34) U/L Alkaline Phosphatase (38-126) U/L Troponin I <0.012 (0.000-0.034) ng/mL Total Protein (6.3-8.2) g/dL Albumin (3.5-5.0) g/dL Lipase (23-300) U/L - EKG Data -: EKG Interpreted by Me EKG Comments: 12-lead Electrocardiogram Interpretation Note EKG was reviewed and interpreted by myself. 12-lead ECG performed at 1535 is interpreted by me as revealing normal sinus rhythm at a rate of 65 beats per minute. [place] is normal. NE interval is 176 ms, QRS duration is 90 ms, QTc is 420 ms.. There were no acute ST or T wave abnormalities to suggest myocardial ischemia or injury. R wave progression across the precordium was slightly delayed. By my interpretation this EKG is non-diagnostic for acute ischemia. EKG shows chronic findings dating back to September 2021. Disposition Clinical Impression: Nicotine dependence, GERD (gastroesophageal reflux disease) Disposition: HOME SELF-CARE Condition: Good Is patient prescribed a controlled substance at d/c from ED?: No Referrals: Riley Govea MD [Primary Care Provider] - 1-2 days Time of Disposition: 17:10
--- NOTE | 2022-12-22 16:05 | XR ---
EXAMINATION TYPE: XR chest 2V DATE OF EXAM: 12/22/2022 4:00 PM COMPARISON: Chest radiographs from 10/06/2022 TECHNIQUE: XR chest 2V Frontal and lateral views of the chest. CLINICAL INDICATION:Female, 57 years old with history of Chest Pain; FINDINGS: Lungs/Pleura: There is no evidence of pleural effusion, focal consolidation, or pneumothorax. Pulmonary vascularity: Unremarkable. Heart/mediastinum: Cardiomediastinal silhouette is unremarkable. Musculoskeletal: No acute osseous pathology. S-shaped scoliotic curvature. IMPRESSION: No acute cardiopulmonary disease/process.
[2022-12-22 16:23] LABS: Basophils % (A) 0 %; Eosinophils # (A) 0.1 k/uL (0-0.7); Eosinophils % (A) 2 %; HGB 12.7 gm/dL (11.4-16.0); Lymphocytes # (A) 1.5 k/uL (1.0-4.8); Lymphocytes % (A) 26 %; MCH 29.4 pg (25.0-35.0); MCHC 33.3 g/dL (31.0-37.0); MCV 88.3 fL (80.0-100.0); Mean Platelet Volume 7.8; Monocytes # (A) 0.2 k/uL (0-1.0); Monocytes % (A) 4 %; Neutrophils # (A) 3.9 k/uL (1.3-7.7); Neutrophils % (A) 66 %; Platelet Count 225 k/uL (150-450); RBC 4.31 m/uL (3.80-5.40); RDW 14.5 % (11.5-15.5); WBC 5.9 k/uL (3.8-10.6)
[2022-12-22 16:36] LABS: Partial Thromboplastin Time 25.1 sec (22.0-30.0); Prothrombin Time 10.5 sec (9.0-12.0)
[2022-12-22 16:49] LABS: African American GFR (CKD) 84 (>60 ml/min/1.73 sqM); Anion Gap 5 mmol/L; Blood Urea Nitrogen 18 mg/dL (7-17); Carbon Dioxide 30 mmol/L (22-30); Chloride 104 mmol/L (98-107); Glucose 85 mg/dL (74-99); Potassium 3.5 mmol/L (3.5-5.1); Sodium 139 mmol/L (137-145)
[2022-12-22 16:50] LABS: ALT 26 U/L (4-34); AST 26 U/L (14-36); Albumin 3.9 g/dL (3.5-5.0); Alkaline Phosphatase 67 U/L (38-126); Calcium 9.3 mg/dL (8.4-10.2); Lipase 63 U/L (23-300); Non-African American GFR(CKD) 73 (>60 ml/min/1.73 sqM)
[2022-12-22 17:41] VITALS: BP 137/109; PULSE 65; RESP 20; TEMP 98.7
== END 2022-12-22 17:50 | disposition home or self-care (01) ==
LOC: EC 14:54
DX: S91.019A Laceration without foreign body, unspecified ankle, initial encounter (principal); K21.9 Gastro-esophageal reflux disease without esophagitis; F17.200 Nicotine dependence, unspecified, uncomplicated; J44.9 Chronic obstructive pulmonary disease, unspecified; I10 Essential (primary) hypertension; M19.90 Unspecified osteoarthritis, unspecified site; F41.9 Anxiety disorder, unspecified; Z79.51 Long term (current) use of inhaled steroids; Z23 Encounter for immunization; Z79.899 Other long term (current) drug therapy; W26.8XXA Contact with other sharp object(s), not elsewhere classified, initial encounter
CPT/HCPCS: 99284 ×2; 90471 ×2; 96374 ×2; 96375 ×2; 36415; 93005; 80053; 83690; 83735; 84484; 85025; 85610; 85730; 71046; 90715; 99406; J2405; C9113

== ENCOUNTER 2023-04-12 12:25 | Emergency (ER) | payer OTHER ==
[2023-04-12 12:52] VITALS: TEMP 97.7
[2023-04-12] MEDS ORDERED: SODIUM CHLORIDE 0.9% 1,000 ML IV STA (13:24)
--- NOTE | 2023-04-12 13:56 | XR ---
EXAMINATION TYPE: XR chest 2V DATE OF EXAM: 04/12/2023 COMPARISON: 12/22/2022 HISTORY: Shortness of breath TECHNIQUE: Frontal and lateral views of the chest are obtained. FINDINGS: Scattered senescent parenchymal changes noted. Hyperinflation compatible with COPD. No evidence for infiltrate. No evidence for atelectasis. Heart size is stable. Mediastinal structures are stable and grossly unremarkable. No evidence for hilar prominence. Degenerative changes dorsal spine. IMPRESSION: 1. No evidence for acute pulmonary disease.
[2023-04-12 14:01] LABS: Basophils % (A) 1 %; Eosinophils # (A) 0.1 k/uL (0-0.7); Eosinophils % (A) 2 %; HCT 39.2 % (34.0-46.0); HGB 12.9 gm/dL (11.4-16.0); Lymphocytes # (A) 1.7 k/uL (1.0-4.8); Lymphocytes % (A) 30 %; MCH 29.2 pg (25.0-35.0); MCHC 32.9 g/dL (31.0-37.0); MCV 88.7 fL (80.0-100.0); Mean Platelet Volume 7.5; Monocytes # (A) 0.3 k/uL (0-1.0); Monocytes % (A) 5 %; Neutrophils # (A) 3.3 k/uL (1.3-7.7); Neutrophils % (A) 61 %; Platelet Count 211 k/uL (150-450); RBC 4.42 m/uL (3.80-5.40); RDW 14.3 % (11.5-15.5); WBC 5.4 k/uL (3.8-10.6)
--- NOTE | 2023-04-12 14:12 | ED ---
Dizziness HPI - General Chief Complaint: Dizziness Stated Complaint: Dizziness Time Seen by Provider: 04/12/23 12:50 Source: patient, family, RN notes reviewed Mode of arrival: ambulatory Limitations: no limitations - History of Present Illness Initial Comments: Patient is a 4-year-old female presented ER with chief complaint of dizziness. Patient states started last night and has been ongoing. Patient describes it as a lightheaded feeling that worsens with head movements. Patient does have a history of hypertension and is currently taking atenolol, clonidine, losartan. She states she her last doses were this morning. Patient denies a history of vertigo. Patient denies any headaches, double vision, chest pain, shortness of breath, abdominal pain, dysuria, peripheral edema. - Related Data Home Medications Medication Instructions Recorded Confirmed cloNIDine HCL [Catapres] 0.1 mg PO DAILY 12/29/17 04/12/23 Fluticasone Nasal [place] [Flonase 2 spr EA NOSTRIL DAILY PRN 10/15/20 04/12/23 Nasal [place]] Albuterol Inhaler [Ventolin Hfa 2 puff INHALATION RT-Q4H PRN 10/04/21 04/12/23 Inhaler] Albuterol Nebulized [Ventolin 2.5 mg INHALATION RT-QID PRN 12/22/22 04/12/23 Nebulized] Biotin 5 mg PO DAILY 12/22/22 04/12/23 Losartan-Hctz 50-12.5 mg [Hyzaar 1 tab PO DAILY 12/22/22 04/12/23 50-12.5] Multivitamins, Thera [Multivitamin 1 tab PO DAILY 12/22/22 04/12/23 (formulary)] Pantoprazole [Protonix] 40 mg PO DAILY 12/22/22 04/12/23 clonazePAM [KlonoPIN] 1 mg PO BID 12/22/22 04/12/23 Naproxen [EC-Naprosyn] 500 mg PO BID 04/12/23 04/12/23 Triamcinolone 0.1% Cream [Kenalog 1 applicatio TOPICAL BID 04/12/23 04/12/23 0.1% Cream] Previous Rx's Medication Instructions Recorded atenoloL 25 mg PO DAILY #30 tablet 09/07/17 Meclizine [Antivert] 25 mg PO TID PRN #15 tab 04/12/23 Allergies Allergy/AdvReac Type Severity Reaction Status Date / Time No Known Allergies Allergy Verified 04/12/23 14:22 Review of Systems ROS Statement: Those systems with pertinent positive or pertinent negative responses have been documented in the HPI. ROS Other: All systems not noted in ROS Statement are negative. Past Medical History Past Medical History: Asthma, COPD, GERD/Reflux, Hypertension, Osteoarthritis (OA), Thyroid Disorder Additional Past Medical History / Comment(s): Anemia, chronic back pain see Dr. Polo for pain specialist History of Any Multi-Drug Resistant Organisms: None Reported Past Surgical History: Appendectomy, Cholecystectomy, Tubal Ligation Additional Past Surgical History / Comment(s): Lipoma removed from left shoulder Past Anesthesia/Blood Transfusion Reactions: No Reported Reaction Past Psychological History: Anxiety Smoking Status: Current every day smoker Past Alcohol Use History: Occasional Past Drug Use History: None Reported - Past Family History Father Family Medical History: Myocardial Infarction (MD) Mother Family Medical History: AFIB Sister(s) Family Medical History: Cancer, Deep Vein Thrombosis (DVT) General Exam Limitations: no limitations General appearance: alert, in no apparent distress Head exam: Present: atraumatic, normocephalic, normal inspection Eye exam: Present: normal appearance, PERRL, EOMI. Absent: scleral icterus, conjunctival injection, periorbital swelling Pupils: Present: normal accommodation ENT exam: Present: normal exam, mucous membranes moist, TM's normal bilaterally Neck exam: Present: normal inspection. Absent: tenderness, meningismus, lymphadenopathy Respiratory exam: Present: normal lung sounds bilaterally. Absent: respiratory distress, wheezes, rales, rhonchi, stridor Cardiovascular Exam: Present: regular rate, normal rhythm, normal heart sounds. Absent: systolic murmur, diastolic murmur, rubs, gallop, clicks GI/Abdominal exam: Present: soft, normal bowel sounds. Absent: distended, tenderness, guarding, rebound, rigid Extremities exam: Present: normal inspection, full ROM, normal capillary refill. Absent: tenderness, pedal edema, joint swelling, calf tenderness Neurological exam: Present: alert, oriented X3, CN II-XII intact Psychiatric exam: Present: normal affect, normal mood Skin exam: Present: warm, dry, intact, normal color. Absent: rash Course Vital Signs 04/12/23 04/12/23 04/12/23 12:34 14:19 15:21 Temperature 97.7 F Pulse Rate 71 65 62 Respiratory 16 18 18 Rate Blood Pressure 141/100 154/107 133/100 O2 Sat by Pulse 100 97 97 Oximetry Medical Decision Making - Medical Decision Making Was pt. sent in by a medical professional or institution (, PA, ASIAN ART CURATOR, urgent care, hospital, or [facility]...) When possible be specific @ -No Did you speak to anyone other than the patient for history (EMS, parent, family, police, friend...)? What history was obtained from this source @ -No Did you review nursing and triage notes (agree or disagree)? Why? @ -I reviewed and agree with nursing and triage notes Were old charts reviewed (outside hosp., previous admission, EMS record, old EKG, old radiological studies, urgent care reports/EKG's, [facility] records)? Report findings @ -No old charts were reviewed Differential Diagnosis (chest pain, altered mental status, abdominal pain women, abdominal pain men, vaginal bleeding, weakness, fever, dyspnea, syncope, headache, dizziness, GI bleed, back pain, seizure, CVA, palpatations, mental health, musculoskeletal)? @ -Differential Dizziness: Benign paroxysmal positional Vertigo, Menieres disease, otitis media, acoustic neuroma, vertebrobasilar insufficiency, cerebellar stroke, encephalitis, hypovolemic, arrhythmia, coronary artery syndrome, anemia, this is not meant to be an all-inclusive list EKG interpreted by me (3pts min.). @ -As above X-rays interpreted by me (1pt min.). @ -Chest x-ray is negative for acute cardiopulmonary process. CT interpreted by me (1pt min.). @ -None done U/S interpreted by me (1pt. min.). @ -None done What testing was considered but not performed or refused? (CT, X-rays, U/S, labs)? Why? @ -None What meds were considered but not given or refused? Why? @ -None Did you discuss the management of the patient with other professionals (professionals i.e. , PA, ASIAN ART CURATOR, lab, RT, psych nurse, social media marketer, elementary ell teacher, teacher, corporate trust officer, welfare case worker)? Give summary @ -No Was smoking cessation discussed for >3mins.? @ -No Was critical care preformed (if so, how long)? @ -No Were there social determinants of health that impacted care today? How? (Homelessness, low income, unemployed, alcoholism, drug addiction, gay sportation, low edu. Level, literacy, decrease access to med. care, long-term, rehab)? @ -No Was there de-escalation of care discussed even if they declined (Discuss DNR or withdrawal of care, Hospice)? DNR status @ -No What co-morbidities impacted this encounter? (DM, HTN, Smoking, COPD, CAD, Cancer, CVA, ARF, Chemo, Hep., AIDS, mental health diagnosis, sleep apnea, morbid obesity)? @ -Hypertension and anxiety Was patient admitted / discharged? Hospital course, mention meds given and r oute, prescriptions, significant lab abnormalities, going to OR and other pertinent info. @ -Discharge. Patient is 58-year-old female presented ER with chief complaint of dizziness. Upon examination blood pressure was 141/100. Vitals otherwise stable. Physical exam was unremarkable. Labs obtained in the ER were unimpressive. Viral swabs obtained were negative. Urinalysis was negative for signs of infection. Chest x-ray showed no acute cardiopulmonary process. EKG showed normal sinus rhythm with inverted T waves in V1 and V3. Patient did received 1 L of IV fluids in t ER. I discussed with patient laboratory and imaging findings. Repeat blood pressure was 133/100. Upon reevaluation, patient was eager and asking to be discharged.She also stated that she's been under a lot of stress lately and she believes this is contributing to her symptoms. I discussed with patient that she should continue taking her prescribed medications from her primary care physician. I advised her to follow up with her PCP in the next 1-2 days. Patient will be prescribed meclizine for dizziness. Return parameters were discussed. Patient will be discharged in stable condition with follow-up to PCP. Patient's past understanding and agreement with care plan. Undiagnosed new problem with uncertain prognosis? @ -No Drug Therapy requiring intensive monitoring for toxicity (Heparin, Nitro, Insulin, Cardizem)? @ -No Were any procedures done? @ -No Diagnosis/symptom? @ -Dizziness Acute, or Chronic, or Acute on Chronic? @ -Acute Uncomplicated (without systemic symptoms) or Complicated (systemic symptoms)? @ -Uncomplicated Side effects of treatment? @ -No Exacerbation, Progression, or Severe Exacerbation? @ -No Poses a threat to life or bodily function? How? (Chest pain, USA, MD, pneumonia, PE, COPD, DKA, ARF, appy, cholecystitis, CVA, Diverticulitis, Homicidal, Suicidal, threat to staff... and all critical care pts) @ -No - Lab Data Result diagrams: 04/12/23 13:43 04/12/23 13:43 Lab Results 04/12/23 04/12/23 04/12/23 Range/Units 13:43 13:43 13:43 WBC 5.4 (3.8-10.6) k/uL RBC 4.42 (3.80-5.40) m/uL Hgb 12.9 (11.4-16.0) gm/dL Hct 39.2 (34.0-46.0) % MCV 88.7 (80.0-100.0) fL MCH 29.2 (25.0-35.0) pg MCHC 32.9 (31.0-37.0) g/dL RDW 14.3 (11.5-15.5) % Plt Count 211 (150-450) k/uL MPV 7.5 Neutrophils % 61 % Lymphocytes % 30 % Monocytes % 5 % Eosinophils % 2 % Basophils % 1 % Neutrophils # 3.3 (1.3-7.7) k/uL Lymphocytes # 1.7 (1.0-4.8) k/uL Monocytes # 0.3 (0-1.0) k/uL Eosinophils # 0.1 (0-0.7) k/uL Basophils # 0.0 (0-0.2) k/uL Sodium 139 (137-145) mmol/L Potassium 3.9 (3.5-5.1) mmol/L Chloride 104 (98-107) mmol/L Carbon Dioxide 26 (22-30) mmol/L Anion Gap 9 mmol/L BUN 21 H (7-17) mg/dL Creatinine 0.81 (0.52-1.04) mg/dL Est GFR (CKD-EPI)AfAm >90 (>60 ml/min/1.73 sqM) Est GFR (CKD-EPI)NonAf 80 (>60 ml/min/1.73 sqM) Glucose 95 (74-99) mg/dL Plasma Lactic Acid Kev (0.7-2.0) mmol/L Calcium 9.5 (8.4-10.2) mg/dL Total Bilirubin 0.8 (0.2-1.3) mg/dL AST 22 (14-36) U/L ALT 23 (4-34) U/L Alkaline Phosphatase 63 (38-126) U/L Troponin I (0.000-0.034) ng/mL Total Protein 7.1 (6.3-8.2) g/dL Albumin 4.1 (3.5-5.0) g/dL Urine Color Colorless Urine Appearance Clear (Clear) Urine pH 6.0 (5.0-8.0) Ur Specific [place] 1.017 (1.001-1.035) Urine Protein Negative (Negative) Urine Glucose (UA) Negative (Negative) Urine Ketones Negative (Negative) Urine Blood Negative (Negative) Urine Nitrite Negative (Negative) Urine Bilirubin Negative (Negative) Urine Urobilinogen <2.0 (<2.0) mg/dL Ur Leukocyte Esterase Negative (Negative) Influenza Type A (PCR) (Not Detectd) Influenza Type B (PCR) (Not Detectd) RSV (PCR) (Not Detectd) SARS-CoV-2 (PCR) (Not Detectd) 04/12/23 04/12/23 04/12/23 Range/Units 13:43 13:43 13:43 WBC (3.8-10.6) k/uL RBC (3.80-5.40) m/uL Hgb (11.4-16.0) gm/dL Hct (34.0-46.0) % MCV (80.0-100.0) fL MCH (25.0-35.0) pg MCHC (31.0-37.0) g/dL RDW (11.5-15.5) % Plt Count (150-450) k/uL MPV Neutrophils % % Lymphocytes % % Monocytes % % Eosinophils % % Basophils % % Neutrophils # (1.3-7.7) k/uL Lymphocytes # (1.0-4.8) k/uL Monocytes # (0-1.0) k/uL Eosinophils # (0-0.7) k/uL Basophils # (0-0.2) k/uL Sodium (137-145) mmol/L Potassium (3.5-5.1) mmol/L Chloride (98-107) mmol/L Carbon Dioxide (22-30) mmol/L Anion Gap mmol/L BUN (7-17) mg/dL Creatinine (0.52-1.04) mg/dL Est GFR (CKD-EPI)AfAm (>60 ml/min/1.73 sqM) Est GFR (CKD-EPI)NonAf (>60 ml/min/1.73 sqM) Glucose (74-99) mg/dL Plasma Lactic Acid Kev 0.5 L (0.7-2.0) mmol/L Calcium (8.4-10.2) mg/dL Total Bilirubin (0.2-1.3) mg/dL AST (14-36) U/L ALT (4-34) U/L Alkaline Phosphatase (38-126) U/L Troponin I <0.012 (0.000-0.034) ng/mL Total Protein (6.3-8.2) g/dL Albumin (3.5-5.0) g/dL Urine Color Urine Appearance (Clear) Urine pH (5.0-8.0) Ur Specific [place] (1.001-1.035) Urine Protein (Negative) Urine Glucose (UA) (Negative) Urine Ketones (Negative) Urine Blood (Negative) Urine Nitrite (Negative) Urine Bilirubin (Negative) Urine Urobilinogen (<2.0) mg/dL Ur Leukocyte Esterase (Negative) Influenza Type A (PCR) Not Detected (Not Detectd) Influenza Type B (PCR) Not Detected (Not Detectd) RSV (PCR) Not Detected (Not Detectd) SARS-CoV-2 (PCR) Not Detected (Not Detectd) - EKG Data -: EKG Interpreted by Me EKG Comments: EKG taken at 12:45 shows normal sinus rhythm with inverted T waves in V3 and V1. Ventricular rate 62, [place] interval 173, QRS duration 85, QT/QTC 410/415. - Radiology Data Radiology results: report reviewed, image reviewed Disposition Clinical Impression: Dizziness Disposition: HOME SELF-CARE Condition: Stable Instructions (If sedation given, give patient instructions): Dizziness (ED) Additional Instructions: Please return to the Emergency Department if symptoms worsen or any other concer ns. Please continue to take her prescribed blood pressure medication. Follow- up with your primary care physician in the next 1-2 days. Prescriptions: Meclizine [Antivert] 25 mg PO TID PRN #15 tab PRN Reason: Vertigo Is patient prescribed a controlled substance at d/c from ED?: No Referrals: Riley Govea MD [Primary Care Provider] - 1-2 days Time of Disposition: 16:03
[2023-04-12 14:16] LABS: AST 22 U/L (14-36); African American GFR (CKD) >90 (>60 ml/min/1.73 sqM); Albumin 4.1 g/dL (3.5-5.0); Alkaline Phosphatase 63 U/L (38-126); Anion Gap 9 mmol/L; Blood Urea Nitrogen 21 mg/dL (7-17); Carbon Dioxide 26 mmol/L (22-30); Chloride 104 mmol/L (98-107); Glucose 95 mg/dL (74-99); Non-African American GFR(CKD) 80 (>60 ml/min/1.73 sqM); Sodium 139 mmol/L (137-145); Total Bilirubin 0.8 mg/dL (0.2-1.3); Total Protein 7.1 g/dL (6.3-8.2)
[2023-04-12 14:17] LABS: ALT 23 U/L (4-34); Calcium 9.5 mg/dL (8.4-10.2); Potassium 3.9 mmol/L (3.5-5.1)
[2023-04-12 14:19] LABS: Appearance,Urine Clear (Clear); Bilirubin,Urine Negative (Negative); Blood,Urine Negative (Negative); Color,Urine Colorless; Glucose,Urine (UA) Negative (Negative); Ketones,Urine Negative (Negative); Leukocyte Esterase,Urine Negative (Negative); Nitrite,Urine Negative (Negative); Protein,Urine Negative (Negative); Specific Gravity,Urine 1.017 (1.001-1.035); Urobilinogen,Urine <2.0 mg/dL (<2.0)
[2023-04-12 14:58] VITALS: RESP 18
[2023-04-12 15:23] VITALS: BP 133/100; PULSE 62
== END 2023-04-12 16:15 | disposition home or self-care (01) ==
LOC: EC 12:25
DX: R42 Dizziness and giddiness (principal); J44.89 Other specified chronic obstructive pulmonary disease; K21.9 Gastro-esophageal reflux disease without esophagitis; I10 Essential (primary) hypertension; M19.90 Unspecified osteoarthritis, unspecified site; F41.9 Anxiety disorder, unspecified; I49.8 Other specified cardiac arrhythmias; F17.200 Nicotine dependence, unspecified, uncomplicated; Z79.51 Long term (current) use of inhaled steroids; Z79.899 Other long term (current) drug therapy; Z20.822 Contact with and (suspected) exposure to COVID-19
CPT/HCPCS: 36415; 71046; 80053; 81003; 83605; 84484; 85025; 87636; 93005; 96360; 96361; 99284

== ENCOUNTER → 2023-04-13 | Day surgery (SDC) | payer OTHER ==
[~2023-04-13] MED LIST: BUPIVACAINE (PF) 0.25% 30 ML VIAL SQ ONE; IOPAMIDOL M200 10 ML VIAL MISCELLANE ONE; LIDOCAINE 2%-EPI 1:100,000 20 ML VIAL SQ ONE; Pre Op ABX Message 1 EACH MISC MISCELLANE ONE; methylPREDNISolone ACETATE 40 MG/ML 1 ML VIAL INJ ONE
--- NOTE | 2023-04-13 11:22 | P.HPOR ---
History of Present Illness H&P Date: 04/13/23 .T:Title: [facility] History and Physical Date of :61 [id number]: NKDA Age: 58 year Height: 5'4" Weight: 182 lbs BP:126/72 BMI: 31.24 kg/m2 Occupation: Home Care VAS: 9 Hand:Right DOI: 05/08/2020/ DOS: n/a/ DOT: > 1 year CHIEF COMPLAINT: Re-check on low back pain TODAY'S VISIT: Today Ms. Jaffe returns to the office today for a re-check on her low back pain. The patient reports experiencing a sharp, throbbing pain throughout the low back that radiates down into the bilateral lower extremities. She notes that this pain has been ongoing since a fall down the steps at home on 05/08/2020. The patient states tat her left leg pain is much more severe than the right at this time. Se states tat her lower extremity pain is associated with numbness and tingling, most prominent in the left foot. The patient states that her symptoms are exacerbated by prolonged activity. She reports experiencing mild to moderate sleep disturbances related to her ongoing pain and associated symptoms. She states that her symptoms have gradually worsened over the last 1 year. The patient has trialed conservative treatment in the form of physical therapy, physician directed at home stretches/exercises, activity modification, at home heat/ice therapies, child care attendant, and medication management, all with no significant or sustained relief. The patient is currently taking Naproxen wit mild relief of her symptoms. Otherwise she denies any f/c/sob/cp, no incision concerns, no bladder or bowel retention/incontinence, no perineal numbness/tingling, and ambulates independently today. HPI: Ms. Jaffe presented to the office on 12/17/2021 regarding a recheck of her lumbar spine. She reports continued lumbar pain radiating into the bilateral buttocks, left groin, and lower extremities. She states she has numbness in the left posterior thigh. Patient is having continued dysfunction and great difficulty with completing daily tasks as well as sleep disturbances due to her symptoms. She would like to attempt PT again due to finding some improvement from the past. She discontinued taking Mobic due to dizziness. At previous visit CODY injections were ordered and discussion of surgical intervention was discussed. She felt that the injections made her symptoms worse. She states she is not ready at this time to have surgery. Otherwise she denies any f/c/sob/cp, no incision concerns, no bladder or bowel retention/incontinence, no perineal numbness/tingling, and ambulates independently. Patient returns to the office 08/08/21 for a recheck of her lumbar spine, Since the time of the last appointment the patient reports that she has seen no improvements to her symptoms. Additionally, she notes that her symptoms have worsened over the last month without any recent injury or trauma to indicate and exacct mechanism of this increase in symptoms. She notes continued lumbar pain radiating into the bilateral buttocks and lower extremities. Patient is having continued dysfunction and great difficulty with completing daily tasks as well as sleep disturbances due to her symptoms. She denies any improvements to her symptoms with all conservative modalities trailed thus far. Otherwise she denies any bladder or bowel retention/incontinence, no perineal numbness/tingling, and ambulates independently. Ms. Jaffe presented to the office on 04/30/2021 for a recheck of her lumbar pain. Since the time of the last appointment the patient reports that her symptoms have not improved. She did complete the course of PT and found no improvement to her symptoms with this. Overall she notes that her symptoms are the same as they were previously. She denies having completed any other modalities at this time. Patient denies any bladder or bowel issues, no perineal numbness/tingling, and ambulates without the use of any aides. Ms. Jaffe was last seen on 12/24/2020 regarding her lumbar pain. To review, at the time of the patient's previous appointment on 09/07/2020 they were given a script for PT, Flexeril 10mg, and home exercise/health maintenance programs. At the time of the last appointment they state that they were seeing good improvement to their symptoms with physical therapy but the pain worsened once they stopped. Regarding her pain, she notes that since stopping PT the pain has become so severe that she is unable to complete many of her daily activities. Noting increased pain with standing, ambulating, and any bending/lifting/twisting motions. This pain is similar to the pain she was feeling at the time of her last appointment. Her pain is severely limiting her daily functions. Overall she notes that they pain today is quite severe and she would like to start physical therapy once again to aide with her pain and symptoms. Patient denies having any injections previously in the low back. Of note, she does not present to the office with the use of any ambulatory aides. The patient was last seen on 09/07/2020 regarding low back pain. Patient stated that on 05/08/2020 that she fell down some stairs at home. Patient stated that she has had low back pain for 4 months. She reported low back pain and radicular pain in both of her legs. Patient was seen in the Emergency Room due to her back pain. Patient denied any bowel or bladder incontinence. She denied any genital region numbness. Patient was not taking any medication for pain. Patient was ambulating independently. HISTORY: Imaging: No new xrays taken in office Trauma: Yes Work Related: No Activity Modification: Yes PT: Yes How many sessions? 12 Did it help? Yes, but only mild temporary relief Home Exercise: Yes, the patient has trialed the physician directed home exercise program without relief of their symptoms. Medications:Yes; List: Naproxen Alternative Interventions: Chiropractic:Yes, no significant relief Massage therapy:No R.I.C.E:Yes, mild relief Brace:No Injections:No RFA:No The patients' past social, medical, family, surgical history, as well as review of systems, have been reviewed. Please refer to the Neurosurgery History and Physical form that has been scanned in to our electronic medical record system. 16 points review of systems completed and as stated in HPI, all other systems reviewed are negative. Social History: Reviewed, see appropriate section of the chart for details. Family History: Reviewed, see appropriate section of the chart for details. P2 Past Medical History: Reviewed, see appropriate section of the chart for details. Current Medications: P1Rx: atenoloL Ref: 0 Rx: cloNIDine Ref: 0 Rx: KlonoPIN Ref: 0 Rx: naproxen Ref: 0 Rx: losartan 25 mg tablet Ref: 0 Rx: pantoprazole 40 mg tablet,delayed release Ref: 0 PHYSICALEXAMINATION: General:Awake, alert, appropriate for age, in no acute distress. HEENT:No unusual neck masses around region of lateral neck triangle, thyroid, supraclavicular groove Heart:Regular rate and rhythm, normal S1, S2 and no murmur/gallop. Lungs:Clear to auscultation bilaterally with no use of accessory muscles. Extremities: Skin warm and dry without acute lesions, coloration, temperature, skin intact, no tenderness or erythema Integument: Hairy patches:Absent Dorsal skin dimples:Absent Cafe au lait spots:Absent Surgical incisions: None Palpation: Please see Pain drawing on Intake sheet for further detail. Midline spinal tenderness: No E6 Paralumbar tenderness: No E6 Parathoracic tenderness: No E6 Buttocks tenderness: No E6 Special findings: No SI Testing:Yes Sacroiliac Tenderness: No FABER4: No Compression:No Distraction:No Thigh thrust:No Hip thrust:No POSTURAL and MUSCULO-SKELETAL EVALUATION: Coronal Balance:NEUTRAL Recumbent testing:Patient is able to lay flat on back Sagittal Balance:NEUTRAL Shoulder Profile:LEVEL Pelvic Girdle:LEVEL Neck ROM:UNRESTRICTED Lumbar ROM:RESTRICTED Shoulder ROM:Symmetrical Hip ROM:Symmetrical Knee ROM:Symmetrical Hands:Normal appearance, symmetrical Feet:Normal appearance, Symmetrical VASCULAR STATUS : LEFT RIGHT Wrist Pulses INTACT INTACT Pedal Pulses (Dors. pedis & post.tibialis) INTACT INTACT Color NORMAL NORMAL Edema Absent Absent NEUROLOGIC EXAMINATION: Mental Status:Awake and alert, fully oriented, with normal attention, concentration and memory, and fluent, appropriate speech. Cranial Nerves: I: Olfactory not tested. II: Visual acuity normal, no visual field deficit noted with confrontation. III,IV: Normal pupillary reflexes & intact extraocular movements without nystagmus. V,: Intact symmetrical facial sensation. VII: Intact symmetrical facial motor movement VIII: Hearing intact. IX,X: Intact gag, swallow, & normal voice. XI: Sternocleidomastoid, trapezius function intact. XII: Tongue midline with normal movements. L'hermitte's Sign: Negative / absent Spurling'Sign: Absent bilaterally. Cubital percussion test: Absent bilaterally. Kulwant-Tinel sign - Carpal region: Absent bilaterally. Straight Leg Raising: Absent bilaterally. Crossed straight leg raise: negative O8 MOTOR EXAM (0-5/5, N/T) STRENGTH RIGHT LEFT Shoulder Abd (not part of the AMRIK score) 5 5 Elbow Flexors 5 5 Elbow Extensor 5 5 Wrist Dorsiflexors 5 5 Finger Abductor 5 5 Carpenter Repair 5 5 Hip Flexor (Not part of AMRIK Motor score) 5 5 Knee Flexor 5 5 Knee Extensor 5 5 Ankle dorsiflexor 4+ 4+ Ankle plantarflexion 5 4+ Extensor hallucis 5 5 REFLEXES(0-4/2, NT) RIGHT LEFT Upper Extremities 2 2 Lower Extremities 2 2 Pathological Reflexes RIGHT LEFT Soliz's Absent Absent Clonus Absent Absent Babinski Absent Absent # Indicates mechanical impairment Muscle appearance: Symmetrical, without signs of atrophy or dystrophy. Sensory system (0-4, N/T) Test type RU KAUSHIK RL LL Joint-Position 2 2 2 2 Vibration 2 2 2 2 Pain & LT sense 2 2 2 2 Dermatomal Deficit: None None L4-5 None Gait and Functional Evaluation: Ambulatory aids: Independent Romberg's test: Intact bilaterally Toe heel walk / heel-toe walk intact while maintaining satisfactory balance? yes Squatting/straightening w/o assistance to a min of 60 degree knee flexion? yes Single leg stance: intact Trendelenburg sign negative bilaterally Hand and finger dexterity intact bilaterally? yes Disdiadochokinesis examination negative bilaterally? yes RADIOGRAPHIC STUDIES: No new x-rays completed in office today. Please see previous notes. IMPRESSION: It was my pleasure to have seen and examined Jelena. I reviewed the patient's clinical syndrome, physical findings, and imaging studies during the appointment today. It is my impression that the patient has a diagnosis of. 1. L4-5 facet arthropathy 2. L4-5 herniated nucleus pulposus 3. Low back pain I outlined the natural course history without intervention and various interventional options. PLAN: Based on my findings I suggest the following course of action: -Advised patient to continue with supplements, health maintenance, and home exercise programs. Patient expressed understanding and will continue with these modalities. - I discussed treatment options with the patient, including operative and non- operative options. Presently, I have recommended continued conservative measures in the form of bilateral L4-5 facet blocks performed by myself at the hospital. I discussed with the patient that if the facet blocks provide her with significant, sustained relief then she can elect to proceed wit future injections as needed. However, if the facet blocks exacerbate her symptoms or temporarily improve her symptoms in a significant manner than we may further discuss surgical intervention in the form of an L4-5 fusion. The patient underst ands all the risks, benefits, and alternatives involved with undergoing the facet blocks. She elects to proceed with the following procedure: Bilateral L4-5 facet blocks The indications, risks, benefits, and alternatives to surgery were discussed with the patient and family at length. Specifically (but not limited to) the risks of infection, stiffness, recurrence of symptoms, need for revision surgery, local numbness, neurovascular injury, and blood clots were discussed. The patient's questions were answered. The decision to proceed was made. Consent will be obtained for the procedure. - Ambulate daily. - Take medications as directed. - Ice and rest for pain and swelling control. Spine Surgery Risk Review Ms. Jaffe is presenting for evaluation of low back and bilateral lower extremity pain; left worse than right. It was my pleasure to have seen and examined Ms. Jaffe. In our visit today we have had a chance to go over subjective complaints, physical examination findings and treatments including the natural course history without intervention and various interventional options. The patients imaging demonstrates: XRay taken on 09/07/2020 of Lumbar, Pelvis was reviewed by Dr. Salcedo and indicates: - This demonstrates grade 1 spondylolisthesis L4-L5 with L2 to L5 spondylosis. The spondylolisthesis appears marginally stable head increases with motion and the flexion of approximately 2-3 mm. There is no fracture or dislocation noted. There is severe spondylosis at L2-3 which is noted as well. No fracture dislocation overall alignment is fairly well maintained other than listhesis. AP pelvis: Congruent pelvis congruent femoral acetabular joints no fracture On physical exam, Ms. Jaffe demonstrates: A sharp, throbbing pain throughout the low back that radiates down into the bilateral lower extremities. She notes that this pain has been ongoing since a fall down the steps at home on 05/08/2020. The patient states tat her left leg pain is much more severe than the right at this time. Se states tat her lower extremity pain is associated with numbness and tingling, most prominent in the left foot. The patient states that her symptoms are exacerbated by prolonged activity. She reports experiencing mild to moderate sleep disturbances related to her ongoing pain and associated symptoms. She states that her symptoms have gradually worsened over the last 1 year. I have explained to the patient that as their condition progresses it will cause further neurological deficits and eventual paralysis. Based on the patients imag ing, physical exam, and the rapid progression and disabling nature of their symptoms, at this time I recommend surgery in the form of a: Bilateral L4-5 facet blocks. I discussed the risk and benefits of this procedure at length with Ms. Jaffe. The patient agreed to considered pursuing the procedure abovementioned. Prior to surgery, she should follow up with her PCP (Cardio, ID, IM etc) for clearance. Questions were invited and answered, and the patient wishes to proceed as outlined below. Currently, I am recommendin.Bilateral L4-5 facet blocks 2.Follow up with PCP for surgical clearance 3.Review of surgical risks and benefits as well as an educational packet on the proposed surgical procedure. Risks: All surgical procedures come with inherent risks, including those related to positioning, anesthesia, intraoperative findings, and postoperative complications. It is important to understand that surgery does not come with any guarantee of a successful outcome as complications and adverse events are always possible. The patient was given a handout in office today discussing the surgical procedure and risks associated with the intervention, both of which were discussed with the patient. These risks include but are not limited to the fo llowing: * Experiencing same, different or even worse symptoms in back, neck, arms, or legs compared to before surgery. Requiring further surgery or other forms of treatment presently or at some time in the future at same or other levels of the intended spine surgery. On an extreme but fortunately relatively rare basis severe complication such as blindness, stroke, heart attack, temporary and/or permanent nerve injury, paralysis, coma, or may occur, sometimes without known explanation. Surgical complications may include but are not limited to risk of infection, fluid accumulation in the surgical dissection site, including a seroma or hematoma, that requires additional surgery, wound drainage, bleeding, new numbness or weakness, vision changes/loss, spinal fluid leakage, non-healing and/or infected incision, headaches, difficulty or inability to swallow, hoarseness, hemopneumothorax, pneumothorax, impotence, retrograde ejaculation, vaginal dryness; injury to nerves, spinal cord, blood vessels, lymphatics or other vital organs (i.e., bowel injury, injury to the great vessels); heterotopic bone formation; complications related to the hardware such as screw s, rods, cages including misplaced hardware, device failure, instrumentation at the wrong spine level, hardware fracture/breakage, or hardware loosening; vertebral failure of the spinal column above or below the newly placed hardware; retained surgical instrumentations or devices and the need for further surgery. * Medical risks of the planned spine surgery include but are not limited to generalized Infections to the whole body or local areas outside of the surgical site (sepsis), heart attack, bleeding, anaphylaxis, meningitis, seizure, epilepsy, hearing loss, burn christensen, laceration of the head or other areas of the body, bruising, hypersensitivity of the skin, bladder over distension; allergic reaction; shoulder injury related to positioning; fat, blood and air clots to other areas of the body like heart, lungs, brain; failure of internal organs such as lungs, kidneys, liver and excessive bleeding. If blood transfusions are necessary, note that transfusions may cause intolerance reactions such as anaphylaxis or other complex reactions. Despite best efforts, the results of spine surgery might not heal in terms of bone, soft tissues such as skin, fascia, ligaments, and joints. Additionally, in order to achieve best possible results, spine surgery may be carried out beyond the initially planned levels and involve decompression, fusion including insertion of hardware at levels other than the original intended area of surgical interest change some portions of the procedure in order to ensure the best possible outcomes. With spine surgery and spinal fusion, there are different off label uses of instrumentation (devices, implants and hardware) as well as biological substances (bone morphogenic proteins, demineralized bone matrix) as well as using extra bone from allograft sources (i.e. cadaver bone) or autograft (iliac crest bone, ribs, or the spine itself). The patient has been given information about these practices and their inherent risks and benefits. [facility] is an educational center that serves as a training facility for neurosurgical and orthopedic [employer] and Nursing students. Physician assistants are medically trained surgical providers who function in the outpatient, inpatient, and operating room setting under the direct supervision of the attending surgeon. [facility] has multiple operating rooms with single and overlapping rooms running daily. They currently function under the required guidelines as produced by the Senate Finance Committee with regards to the overlapping rooms and will continue to comply with changes to this policy as they occur. The requirements include and are complied with as follows: (1) the critical portions of the overlapping rooms will not occur at the same time, (2) the attending phys ician will be physically present during the critical portions of the procedure and immediately available during the entire case, and (3) a back-up attending is designated should the primary attending not be immediately available. The patient has had a chance to review all the listed information, has been given print outs detailing this information, and has had all his/her questions answered to their satisfaction. It was my pleasure to have seen and examined Ms. Jaffe. In our visit today we have had a chance to go over my understanding of our patient's current condition, the natural course history without intervention and various interventional options. Questions were invited and answered, and the patient wishes to proceed as outlined above. I have seen and examined the patient for 25 minutes and we have spent more than 50% of the time in repeat and detailed counseling about the patient's condition, its natural course history with out and as much as can be predicted with surgery and re-review of various surgical treatment options. In conclusion, Ms. Jaffe requested we proceed with the above suggested surgery and are willing to accept risks and limitations of the suggested surgery as nature of the disease process and our best attempts at treatment for the condition. Thank you again for allowing us to be part of your patient's care. Please don't hesitate to contact me if you have any further questions. Signed and authenticated by: [employer] P:\\\\ppart\\\\[id number]\\\\[id number]\\[id number]\\\\[id number] \\d Tutu Ramirez [facility] Sp[facility] [address] Follow- up: Following the completion of bilateral L4-5 facet blocks Patient Education: (Informational booklet, instructions, etc) given at today's appointment: Yes .ED:Patient Education: Y Medications Reviewed: YES In our visit today Ms. Jaffe and I have had a chance to go over my understanding of the patient's current condition, the natural course history without intervention and various interventional options. Questions were invited and answered, and the patient wishes to proceed as outlined above. I will be sure to keep you updated afterMsMayi Jaffe returns here for further follow-up. Thank you again for your referral. Please do not hesitate to contact me if you have any further questions. Signed and authenticated by: Tutu Flores DO [facility] [address] [place] [address] This message is confidential, intended only for the named recipient(s) and may contain information that is privileged or exempt from disclosure under applicable law. If you are not the intended recipient(s), you are notified that the dissemination, distribution or copying of this information is strictly prohibited. If you received this message in error, please notify the sender then delete this message. Patient verbalizes understanding of the information discussed. The above note was initiated by Litzy Martinez, physician recording accountant assistant for Dr. Tutu Flores. This note has been reviewed by Dr. Flores, who has made his personal changes and impressions for this document. CC: Riley Govea M.D. # SIGNED BY Tutu Flores (GOO)03/08/2023 05:10PM Past Medical History Past Medical History: Asthma, COPD, GERD/Reflux, Hypertension, Osteoarthritis (OA), Thyroid Disorder Additional Past Medical History / Comment(s): Anemia, chronic back pain see Dr. Polo for pain specialist, pt feeling lightheaded & dizzy today, on her way to [facility] now so couldn't update her hx. History of Any Multi-Drug Resistant Organisms: None Reported Past Surgical History: Appendectomy, Cholecystectomy, Tubal Ligation Additional Past Surgical History / Comment(s): Lipoma removed from left shoulder Past Anesthesia/Blood Transfusion Reactions: No Reported Reaction Past Psychological History: Anxiety Smoking Status: Current every day smoker Past Alcohol Use History: Occasional Additional Past Alcohol Use History / Comment(s): pt states for the last few months she has been drinking 1/2 pint every day. denies going thru DT's or having surgeries Past Drug Use History: None Reported Additional Drug Use History / Comment(s): doesn't use anymore - Past Family History Father Family Medical History: Myocardial Infarction (ND) Mother Family Medical History: AFIB Sister(s) Family Medical History: Cancer, Deep Vein Thrombosis (DVT) Medications and Allergies Home Medications Medication Instructions Recorded Confirmed Type atenoloL 25 mg PO DAILY #30 tablet 09/07/17 04/12/23 Rx cloNIDine HCL [Catapres] 0.1 mg PO DAILY 12/29/17 04/12/23 History Fluticasone Nasal [place] [Flonase 2 spr EA NOSTRIL DAILY PRN 10/15/20 04/12/23 History Nasal [place]] Albuterol Inhaler [Ventolin Hfa 2 puff INHALATION RT-Q4H PRN 10/04/21 04/12/23 History Inhaler] Albuterol Nebulized [Ventolin 2.5 mg INHALATION RT-QID PRN 12/22/22 04/12/23 History Nebulized] Biotin 5 mg PO DAILY 12/22/22 04/12/23 History Losartan-Hctz 50-12.5 mg [Hyzaar 1 tab PO DAILY 12/22/22 04/12/23 History 50-12.5] Multivitamins, Thera [Multivitamin 1 tab PO DAILY 12/22/22 04/12/23 History (formulary)] Pantoprazole [Protonix] 40 mg PO DAILY 12/22/22 04/12/23 History clonazePAM [KlonoPIN] 1 mg PO BID 12/22/22 04/12/23 History Meclizine [Antivert] 25 mg PO TID PRN #15 tab 04/12/23 Rx Naproxen [EC-Naprosyn] 500 mg PO BID 04/12/23 04/12/23 History Triamcinolone 0.1% Cream [Kenalog 1 applicatio TOPICAL BID 04/12/23 04/12/23 History 0.1% Cream] Allergies Allergy/AdvReac Type Severity Reaction Status Date / Time No Known Allergies Allergy Verified 04/12/23 14:22 Physical Examination Osteopathic Statement: *. No significant issues noted on an osteopathic structural exam other than those noted in the History and Physical/Consult.
[2023-04-13 12:13] VITALS: TEMP 97.1
[2023-04-13 13:03] VITALS: RESP 12
[2023-04-13 13:27] VITALS: BP 150/109; PULSE 69
--- NOTE | 2023-04-13 13:40 | FL ---
EXAMINATION TYPE: FL guidance operating room DATE OF EXAM: 04/13/2023 HISTORY: Fluoroscopy time Total dose area product (DAP) in uGy*m?, mGy*cm? (or similar): 5.0168 IMPRESSION: 1. Fluoroscopy time.
--- NOTE | 2023-04-13 15:36 | P.OP ---
Date of Procedure: 04/13/23 Preoperative Diagnosis: M47.817 Spondylosis without myelopathy or radiculopathy, lumbosacral region L4-5 FACET ARTHROSIS M14.80 Arthropathies in other specified diseases classified elsewhere, unspecified site L4-5 M54.50 Vertebrogenic low back pain Low back vertebral endplate pain L4-5 Postoperative Diagnosis: M47.817 Spondylosis without myelopathy or radiculopathy, lumbosacral region L4-5 FACET ARTHROSIS M14.80 Arthropathies in other specified diseases classified elsewhere, unspecified site L4-5 M54.50 Vertebrogenic low back pain Low back vertebral endplate pain L4-5 Procedure(s) Performed: 87416/50 Injection, anesthetic agent and/or steroid, paravertebral facet joint or facet joint nerve; lumbar or sacral, single level BILATERAL L4-5 30376 Fluoroscopic guidance for needle placement (eg, biopsy, aspiration, injection, localization device) (List separately in addition to code for primary procedure) L4-5 Implants: NONE Anesthesia: local Surgeon: Tutu Flores Estimated Blood Loss (ml): 2 IV fluids (ml): 0 Urine output (ml): 0 Pathology: none sent Condition: stable Disposition: PACU Indications for Procedure: Ms. Jaffe is presenting for evaluation of low back and bilateral lower extremity pain; left worse than right. It was my pleasure to have seen and examined Ms. Jaffe. In our visit today we have had a chance to go over subjective complaints, physical examination findings and treatments including the natural course history without intervention and various interventional options. The patients imaging demonstrates: XRay taken on 09/07/2020 of Lumbar, Pelvis was reviewed by Dr. Salcedo and indicates: - This demonstrates grade 1 spondylolisthesis L4-L5 with L2 to L5 spondylosis. The spondylolisthesis appears marginally stable head increases with motion and the flexion of approximately 2-3 mm. There is no fracture or dislocation noted. There is severe spondylosis at L2-3 which is noted as well. No fracture dislocation overall alignment is fairly well maintained other than listhesis. AP pelvis: Congruent pelvis congruent femoral acetabular joints no fracture On physical exam, Ms. Jaffe demonstrates: A sharp, throbbing pain throughout the low back that radiates down into the bilateral lower extremities. She notes that this pain has been ongoing since a fall down the steps at home on 05/08/2020. The patient states tat her left leg pain is much more severe than the right at this time. Se states tat her lower extremity pain is associated with numbness and tingling, most prominent in the left foot. The patient states that her symptoms are exacerbated by prolonged activity. She reports experiencing mild to moderate sleep disturbances related to her ongoing pain and associated symptoms. She states that her symptoms have gradually worsened over the last 1 year. I have explained to the patient that as their condition progresses it will cause further neurological deficits and eventual paralysis. Based on the patients imaging, physical exam, and the rapid progression and disabling nature of their symptoms, at this time I recommend surgery in the form of a: Bilateral L4-5 facet blocks. I discussed the risk and benefits of this procedure at length with Ms. Jaffe. The patient agreed to considered pursuing the procedure abovementioned. Prior to surgery, she should follow up with her PCP (Cardio, ID, IM etc) for clearance. Questions were invited and answered, and the patient wishes to proceed as outlined below. Currently, I am recommendin.Bilateral L4-5 facet blocks Description of Procedure: L4-5 B/L FACET BLOCKS The patient was seen and examined in the preoperative area. All preoperative protocols were followed. Informed consent was obtained risks and benefits of the procedure were discussed at length. Risks including bleeding infection damage to the surrounding tissue and risk of reoperation were discussed with the patient. Risk of anesthesia up to and including was a discussed with the patient. These are outlined in the risk review. They were willing to accept these risks and all of the risks of surgery. The patient was given a weight-based dose of antibiotics in the form of [antibiotic]. The patient was seen and evaluated by the anesthesia team who deemed them fit for surgery. The site was marked, the patient was willing to proceed with the procedure. The patient was transferred to the operative suite by the Department of anesthesia. They were then drifted off to sleep by the department anesthesia and LOCAL was performed. The patient tolerated this well. Once confirmation of lines and ventilation the patient was transferred to a [prone Gage table very carefully]. All bony prominences including wrists, elbows, axilla, chest, hips, and thighs, and feet were padded very well. Special attention was paid to the genitalia and these were padded accordingly. SCDs were placed on bilateral lower extremities and were connected. Arms were well padded and placed [on arm boards up and out in the 90/90 position]. Once in position, again we confirmed good ventilation capabilities and that lines were running appropriately. The patient's LUMBAR spine was then exposed. 1010s were placed outlining the incision site. Standard alcohol was used to clean the incision site and allowed to dry. C-arm was used to NEEDLE LOCALIZE L4-5 FACET JOINTS AND biomark the patient and confirm level for incision which was marked with a skin marker. Operative briefing was performed with all teams and everyone in agreement to proceed. The patient was then prepped and draped in a normal sterile fashion. Timeout was then performed and all parties were in agreement with the procedure to be performed. 22 G NEEDLE WAS THEN USED TO INFILTRATE THE SKIN AND SOFT TISSUE WITH A MIXTURE OF LIDOCAIN AND MARCAINE FOR local anesthetic over the l4-5 facet joints. Once good anesthesia was obtained, 18 g spinal needles were used to access the facet joints at L4-5 using AP and Lateral live flouroscopy. Once in place, isovue was used to confirm around and within the facet joints at L4-5. Once this was confirmed a block was placed in the facet joint and around the facet joint to the area of the MBN. Good anesthetic response was noted by the patient and once this was done the needles were withdrawn and the sites cleaned and covered with bandaids. The patient was transferred back to their hospital bed atraumatically having tolerated the procedure very well with no complications. They were transferred to the postoperative care unit in stable condition. Upon evaluation of the patient she stated she felt great and had zero pain in her low back at this time. She will follow up in office for further evaluation and discussion of possible interventions.
== END | disposition home or self-care (01) ==
LOC: OR 11:50
PROVIDERS: ATTEND Orthopaedic Surgery
DX: M14.80 Arthropathies in other specified diseases classified elsewhere, unspecified site (principal); M47.817 Spondylosis without myelopathy or radiculopathy, lumbosacral region; J44.9 Chronic obstructive pulmonary disease, unspecified; K21.9 Gastro-esophageal reflux disease without esophagitis; I10 Essential (primary) hypertension; M19.90 Unspecified osteoarthritis, unspecified site; E07.9 Disorder of thyroid, unspecified; G89.29 Other chronic pain; Z98.51 Tubal ligation status; Z90.49 Acquired absence of other specified parts of digestive tract; Z98.890 Other specified postprocedural states; F41.9 Anxiety disorder, unspecified; F17.200 Nicotine dependence, unspecified, uncomplicated; Z82.49 Family history of ischemic heart disease and other diseases of the circulatory system; Z79.51 Long term (current) use of inhaled steroids; Z79.899 Other long term (current) drug therapy; Z79.1 Long term (current) use of non-steroidal anti-inflammatories (NSAID)
CPT/HCPCS: 64493; 64494 ×2; Q9966; J0665

== ENCOUNTER 2023-08-12 20:28 | Emergency (ER) | payer OTHER ==
[2023-08-12 20:57] VITALS: RESP 18
[2023-08-12 21:54] LABS: Basophils % (A) 1 %; Eosinophils # (A) 0.2 k/uL (0-0.7); Eosinophils % (A) 2 %; HCT 38.2 % (34.0-46.0); Lymphocytes # (A) 1.5 k/uL (1.0-4.8); Lymphocytes % (A) 23 %; MCH 28.8 pg (25.0-35.0); MCHC 31.5 g/dL (31.0-37.0); MCV 91.2 fL (80.0-100.0); Mean Platelet Volume 7.7; Monocytes # (A) 0.2 k/uL (0-1.0); Monocytes % (A) 3 %; Neutrophils # (A) 4.4 k/uL (1.3-7.7); Neutrophils % (A) 68 %; Platelet Count 259 k/uL (150-450); RBC 4.19 m/uL (3.80-5.40); RDW 14.6 % (11.5-15.5); WBC 6.4 k/uL (3.8-10.6)
[2023-08-12 22:10] LABS: ALT 20 U/L (4-34); AST 22 U/L (14-36); African American GFR (CKD) 89 (>60 ml/min/1.73 sqM); Albumin 3.8 g/dL (3.5-5.0); Alkaline Phosphatase 69 U/L (38-126); Anion Gap 5 mmol/L; Blood Urea Nitrogen 21 mg/dL (7-17); Calcium 9.4 mg/dL (8.4-10.2); Carbon Dioxide 27 mmol/L (22-30); Chloride 108 mmol/L (98-107); Glucose 116 mg/dL (74-99); Non-African American GFR(CKD) 77 (>60 ml/min/1.73 sqM); Potassium 3.6 mmol/L (3.5-5.1); Sodium 140 mmol/L (137-145); Total Bilirubin 0.5 mg/dL (0.2-1.3); Total Protein 6.7 g/dL (6.3-8.2)
--- NOTE | 2023-08-12 22:13 | ED ---
Anxiety HPI - General Chief Complaint: Anxiety Stated Complaint: Anxiety Time Seen by Provider: 08/12/23 20:40 Source: patient, RN notes reviewed Mode of arrival: ambulatory - History of Present Illness Initial Comments: 58-year-old female with history of anxiety and hypertension presenting to the ER with chief complaint of anxiety. States she has been having palpitations today. States she usually gets palpitations when she is feeling anxious. States that she takes Klonopin 1 mg daily for her anxiety but states she left her anxiety medications and her sister's car. She is requesting dose of Klonopin today. Denies chest pain, shortness of breath, fever, nausea, vomiting. States she has an appointment with her PCP on Monday. Denies suicidal ideations. - Related Data Home Medications: Home Medications Medication Instructions Recorded Confirmed cloNIDine HCL [Catapres] 0.1 mg PO DAILY 12/29/17 04/12/23 Fluticasone Nasal [place] [Flonase 2 spr EA NOSTRIL DAILY PRN 10/15/20 04/12/23 Nasal [place]] Albuterol Inhaler [Ventolin Hfa 2 puff INHALATION RT-Q4H PRN 10/04/21 04/12/23 Inhaler] Albuterol Nebulized [Ventolin 2.5 mg INHALATION RT-QID PRN 12/22/22 04/12/23 Nebulized] Biotin 5 mg PO DAILY 12/22/22 04/12/23 Losartan-Hctz 50-12.5 mg [Hyzaar 1 tab PO DAILY 12/22/22 04/12/23 50-12.5] Multivitamins, Thera [Multivitamin 1 tab PO DAILY 12/22/22 04/12/23 (formulary)] Pantoprazole [Protonix] 40 mg PO DAILY 12/22/22 04/12/23 clonazePAM [KlonoPIN] 1 mg PO BID 12/22/22 04/12/23 Naproxen [EC-Naprosyn] 500 mg PO BID 04/12/23 04/13/23 Triamcinolone 0.1% Cream [Kenalog 1 applicatio TOPICAL BID 04/12/23 04/12/23 0.1% Cream] Previous Rx's Medication Instructions Recorded atenoloL 25 mg PO DAILY #30 tablet 09/07/17 Meclizine [Antivert] 25 mg PO TID PRN #15 tab 04/12/23 clonazePAM [KlonoPIN] 1 mg PO BID 2 Days #4 tablet 08/12/23 Allergies/Adverse Reactions: Allergies Allergy/AdvReac Type Severity Reaction Status Date / Time No Known Allergies Allergy Verified 08/12/23 20:53 Review of Systems ROS Statement: Those systems with pertinent positive or pertinent negative responses have been documented in the HPI. ROS Other: All systems not noted in ROS Statement are negative. Past Medical History Past Medical History: Asthma, COPD, GERD/Reflux, Hypertension, Osteoarthritis (OA), Thyroid Disorder Additional Past Medical History / Comment(s): Anemia, chronic back pain see Dr. Polo for pain specialist History of Any Multi-Drug Resistant Organisms: None Reported Past Surgical History: Appendectomy, Cholecystectomy, Tubal Ligation Additional Past Surgical History / Comment(s): Lipoma removed from left shoulder Past Anesthesia/Blood Transfusion Reactions: No Reported Reaction Past Psychological History: Anxiety Smoking Status: Current every day smoker Past Alcohol Use History: Occasional Past Drug Use History: None Reported - Past Family History Father Family Medical History: Myocardial Infarction (AL) Mother Family Medical History: AFIB Sister(s) Family Medical History: Cancer, Deep Vein Thrombosis (DVT) General Exam Limitations: no limitations General appearance: alert, in no apparent distress Head exam: Present: atraumatic, normocephalic, normal inspection Respiratory exam: Present: normal lung sounds bilaterally. Absent: respiratory distress, wheezes, rales, rhonchi, stridor Cardiovascular Exam: Present: regular rate, normal rhythm, normal heart sounds. Absent: systolic murmur, diastolic murmur, rubs, gallop, clicks Psychiatric exam: Present: normal affect, normal mood Skin exam: Present: warm, dry, intact, normal color. Absent: rash Course Vital Signs 08/12/23 20:51 Temperature 97.7 F Pulse Rate 79 Respiratory 18 Rate Blood Pressure 134/92 O2 Sat by Pulse 99 Oximetry Medical Decision Making - Medical Decision Making Was pt. sent in by a medical professional or institution (, PA, FLAME HARDENING MACHINE SETTER, urgent care, hospital, or jail...) When possible be specific @ -No Did you speak to anyone other than the patient for history (EMS, parent, family, police, friend...)? What history was obtained from this source @ -No Did you review nursing and triage notes (agree or disagree)? Why? @ -I reviewed and agree with nursing and triage notes Were old charts reviewed (outside hosp., previous admission, EMS record, old EKG, old radiological studies, urgent care reports/EKG's, jail records)? Report findings @ -No old charts were reviewed Differential Diagnosis (chest pain, altered mental status, abdominal pain women, abdominal pain men, vaginal bleeding, weakness, fever, dyspnea, syncope, heada dg, dizziness, GI bleed, back pain, seizure, CVA, palpatations, mental health, musculoskeletal)? @ -Anxiety, cardiac arrhythmias, panic attack, differential Palpitations Ventricular arrhythmias, atrial arrhythmias, myocardial infarction, anemia, thyrotoxicosis, electrolyte imbalance, hypokalemia, pulmonary embolism, pulmonary disease, drugs, alcohol, anxiety, stress.... This is not meant to be an all-inclusive list. EKG interpreted by me (3pts min.). @ -Normal sinus rhythm with no ST changes X-rays interpreted by me (1pt min.). @ -None done CT interpreted by me (1pt min.). @ -None done U/S interpreted by me (1pt. min.). @ -None done What testing was considered but not performed or refused? (CT, X-rays, U/S, labs)? Why? @ -None What meds were considered but not given or refused? Why? @ -None Did you discuss the management of the patient with other professionals (professionals i.e. , PA, FLAME HARDENING MACHINE SETTER, lab, RT, psych nurse, social psychologist, patient ombudsperson, teacher, chief technical officer, case making machine operator)? Give summary @ -No Was smoking cessation discussed for >3mins.? @ -No Was critical care preformed (if so, how long)? @ -No Were there social determinants of health that impacted care today? How? (Homelessness, low income, unemployed, alcoholism, drug addiction, transportation, low edu. Level, literacy, decrease access to med. care, fdc, rehab)? @ -No Was there de-escalation of care discussed even if they declined (Discuss DNR or withdrawal of care, Hospice)? DNR status @ -No What co-morbidities impacted this encounter? (DM, HTN, Smoking, COPD, CAD, Cancer, CVA, ARF, Chemo, Hep., AIDS, mental health diagnosis, sleep apnea, morbid obesity)? @ -None Was patient admitted / discharged? Hospital course, mention meds given and route, prescriptions, significant lab abnormalities, going to OR and other pertinent info. @ -Patient was discharged. Patient was seen and evaluated for anxiety and palpitations. Patient's vitals and examination were unremarkable. EKG and labs were unremarkable. Patient was given dose of Klonopin during visit and prescribed Klonopin for 2 days until patient has appointment with PCP. Patient discharged in stable condition. Case discussed with Dr. Marvin Undiagnosed new problem with uncertain prognosis? @ -No Drug Therapy requiring intensive monitoring for toxicity (Heparin, Nitro, Insulin, Cardizem)? @ -No Were any procedures done? @ -No Diagnosis/symptom? @ -Anxiety Acute, or Chronic, or Acute on Chronic? @ -Acute Uncomplicated (without systemic symptoms) or Complicated (systemic symptoms)? @ -uncomplicated Side effects of treatment? @ -No Exacerbation, Progression, or Severe Exacerbation? @ -No Poses a threat to life or bodily function? How? (Chest pain, USA, AL, pneumonia, PE, COPD, DKA, ARF, appy, cholecystitis, CVA, Diverticulitis, Homicidal, Suicidal, threat to staff... and all critical care pts) @ -No - Lab Data Result diagrams: 08/12/23 21:38 08/12/23 21:38 Lab Results 08/12/23 08/12/23 Range/Units 21:38 21:38 WBC 6.4 (3.8-10.6) k/uL RBC 4.19 (3.80-5.40) m/uL Hgb 12.0 (11.4-16.0) gm/dL Hct 38.2 (34.0-46.0) % MCV 91.2 (80.0-100.0) fL MCH 28.8 (25.0-35.0) pg MCHC 31.5 (31.0-37.0) g/dL RDW 14.6 (11.5-15.5) % Plt Count 259 (150-450) k/uL MPV 7.7 Neutrophils % 68 % Lymphocytes % 23 % Monocytes % 3 % Eosinophils % 2 % Basophils % 1 % Neutrophils # 4.4 (1.3-7.7) k/uL Lymphocytes # 1.5 (1.0-4.8) k/uL Monocytes # 0.2 (0-1.0) k/uL Eosinophils # 0.2 (0-0.7) k/uL Basophils # 0.0 (0-0.2) k/uL Sodium 140 (137-145) mmol/L Potassium 3.6 (3.5-5.1) mmol/L Chloride 108 H (98-107) mmol/L Carbon Dioxide 27 (22-30) mmol/L Anion Gap 5 mmol/L BUN 21 H (7-17) mg/dL Creatinine 0.83 (0.52-1.04) mg/dL Est GFR (CKD-EPI)AfAm 89 (>60 ml/min/1.73 sqM) Est GFR (CKD-EPI)NonAf 77 (>60 ml/min/1.73 sqM) Glucose 116 H (74-99) mg/dL Calcium 9.4 (8.4-10.2) mg/dL Total Bilirubin 0.5 (0.2-1.3) mg/dL AST 22 (14-36) U/L ALT 20 (4-34) U/L Alkaline Phosphatase 69 (38-126) U/L Total Protein 6.7 (6.3-8.2) g/dL Albumin 3.8 (3.5-5.0) g/dL - EKG Data -: EKG Interpreted by Me EKG Comments: Normal sinus rhythm no ST changes. Ventricular rate 64 bpm, MD interval 166, QRS duration 89, QT/QTc 388/398 Disposition Clinical Impression: Acute anxiety Disposition: HOME SELF-CARE Condition: Stable Instructions (If sedation given, give patient instructions): Generalized Anxiety Disorder (ED) Additional Instructions: Please return to the Emergency Department if symptoms worsen or any other concerns. Please follow-up with PCP for upcoming appointment on the . Prescriptions: clonazePAM [KlonoPIN] 1 mg PO BID 2 Days #4 tablet Is patient prescribed a controlled substance at d/c from ED?: Yes When asked, does pt state using other controlled substances?: No If prescribed controlled substance>3 days was MAPS reviewed?: Prescribed <3 Days Referrals: Riley Govea MD [Primary Care Provider] - 1-2 days Time of Disposition: 22:48
[2023-08-12] MEDS: clonazePAM 0.5 MG TAB PO STA (22:44)
[2023-08-12 23:01] VITALS: BP 125/90; PULSE 69; TEMP 97.6
== END 2023-08-12 22:53 | disposition home or self-care (01) ==
LOC: EC 20:28
DX: F41.9 Anxiety disorder, unspecified (principal); F17.200 Nicotine dependence, unspecified, uncomplicated
CPT/HCPCS: 36415; 80053; 85025; 93005; 99284

== ENCOUNTER → 2023-09-14 | Outpatient (CLI) | payer OTHER ==
--- NOTE | 2023-09-14 13:07 | MR ---
EXAMINATION TYPE: MR shoulder RT wo con DATE OF EXAM: 09/14/2023 COMPARISON: Right shoulder x-ray June 26, 2023 HISTORY: Right shoulder pain TECHNIQUE: Multiplanar, multisequence imaging of the right shoulder is performed without contrast. FINDINGS: Rotator Cuff: Increased signal in the supraspinatus and infraspinatus tendons. Findings most prominen t involving the distal supraspinatus tendon with adjacent subdeltoid/subacromial fluid Intact subscap ularis tendon with some heterogeneity. Rotator cuff muscle bulk is preserved. Acromioclavicular Joint: Mild narrowing and capsular hypertrophy. Distal acromion morphology unremark able. Glenohumeral Joint: No significant effusion. No significant spurring. Labrum: Heterogeneous increased signal superior labrum consistent with tear. Biceps Tendon: The long head of biceps is in normal location within bicipital groove. Bone marrow signal: There is subchondral cystic change involving the lateral aspect of the humeral he ad. Other: No additional significant abnormality is appreciated. IMPRESSION: 1. Tendinosis of the infraspinatus tendon and to a greater degree tendinosis/partial tearing of the s upraspinatus tendon with associated subdeltoid/subacromial bursitis. 2. Superior labral tear.
== END | disposition home or self-care (01) ==
LOC: RADMRIMAIN 11:05
PROVIDERS: ATTEND Orthopaedic Surgery
DX: M75.111 Incomplete rotator cuff tear or rupture of right shoulder, not specified as traumatic (principal); M75.51 Bursitis of right shoulder

== ENCOUNTER → 2023-09-15 | Outpatient (CLI) | payer OTHER ==
--- NOTE | 2023-09-18 12:39 | MM ---
Reason for Exam: Screening (asymptomatic). Last mammogram was performed 1 year(s) and 5 month(s) ago. Patient History: Menarche at age 14. First Full-Term at age 18. Postmenopausal. Patient has history of breast feeding. Hormonal Contraceptives for 2 years, 6 months. 1989, Excisional Biopsy on the Right side. 07/07/2011, Benign Core Biopsy on the right side. 08/06/2007, Benign Core Biopsy on the left side. 08/06/2007, Benign Core Biopsy on the right side. Risk Values: Jen 5 year model risk: 1.2%. NCI Lifetime model risk: 5.7%. Prior Study Comparison: 02/04/2021 Bilateral Screening Mammogram, [facility]. 04/21/2022 Bilateral MG screening mammo w CAD, [facility]. 05/18/2022 Left MG work up mamm w CAD , [facility]. Tissue Density: There are scattered areas of fibroglandular density. Findings: Analyzed By CAD. There is a large lobulated previously biopsied density within the right breast. Core marker is within the left breast. Additional lobular densities within the posterior lateral right breast, present previously. No significant interval change is evident. No suspicious groups of microcalcifications, spiculated or lobular masses, architectural distortion or other secondary signs of malignancy are mammographically apparent. Overall Assessment: Benign, BI-RAD 2 Management: Screening Mammogram of both breasts in 1 year. A negative mammogram report should not preclude additional follow up of suspicious palpable abnormalities. Patient should continue monthly self breast exam. A clinical breast exam by your physician is recommended on an annual basis and results should be correlated with mammographic findings. Note on Jen scores and lifetime risk: 1. A Jen score greater than 3% is considered moderate risk. If this is the case, consider specialist referral to assess eligibility for a risk reducing agent. 2. If overall lifetime risk for the development of breast cancer is 20% or higher, the patient may qualify for future screening with alternating mammogram and breast MRI. Electronically signed and approved by: Bishop Connelly D.O. Radiologis
== END | disposition home or self-care (01) ==
LOC: RADMAMWWP 10:21
PROVIDERS: ATTEND Family Medicine
DX: Z12.31 Encounter for screening mammogram for malignant neoplasm of breast (principal); Z78.0 Asymptomatic menopausal state
CPT/HCPCS: 77067

== ENCOUNTER 2023-10-29 22:54 | Emergency (ER) | payer OTHER ==
[2023-10-29 23:22] VITALS: RESP 20
--- NOTE | 2023-10-30 01:01 | ED ---
General Adult HPI - General Chief complaint: ENT Stated complaint: Rt Ear Pain Time Seen by Provider: 10/30/23 00:32 Source: patient Mode of arrival: ambulatory Limitations: no limitations - History of Present Illness Initial comments: 58-year-old female who presents emergency department reporting right ear pain. States the pain started after she took a shower. She feels as if the ear is plugged. She attempted to clean it using a Q-tip however had no improvement in her symptoms. She denies ear pain or sore throat. No fevers. No sick contacts. No discharge from the ear. No other alleviating, precipitating or modifying factors - Related Data Home Medications Medication Instructions Recorded Confirmed cloNIDine HCL [Catapres] 0.1 mg PO DAILY 12/29/17 04/12/23 Fluticasone Nasal [place] [Flonase 2 spr EA NOSTRIL DAILY PRN 10/15/20 04/12/23 Nasal [place]] Albuterol Inhaler [Ventolin Hfa 2 puff INHALATION RT-Q4H PRN 10/04/21 04/12/23 Inhaler] Albuterol Nebulized [Ventolin 2.5 mg INHALATION RT-QID PRN 12/22/22 04/12/23 Nebulized] Biotin 5 mg PO DAILY 12/22/22 04/12/23 Losartan-Hctz 50-12.5 mg [Hyzaar 1 tab PO DAILY 12/22/22 04/12/23 50-12.5] Multivitamins, Thera [Multivitamin 1 tab PO DAILY 12/22/22 04/12/23 (formulary)] Pantoprazole [Protonix] 40 mg PO DAILY 12/22/22 04/12/23 clonazePAM [KlonoPIN] 1 mg PO BID 12/22/22 04/12/23 Naproxen [EC-Naprosyn] 500 mg PO BID 04/12/23 04/13/23 Triamcinolone 0.1% Cream [Kenalog 1 applicatio TOPICAL BID 04/12/23 04/12/23 0.1% Cream] Previous Rx's Medication Instructions Recorded atenoloL 25 mg PO DAILY #30 tablet 09/07/17 Meclizine [Antivert] 25 mg PO TID PRN #15 tab 04/12/23 clonazePAM [KlonoPIN] 1 mg PO BID 2 Days #4 tablet 08/12/23 Amoxicillin 875 mg PO Q12HR #10 tablet 10/30/23 Isopropyl Alcohol in Glycerin 5 drop RIGHT EAR QID PRN #29.6 ml 10/30/23 [Auro Dri Swimmers' Ear Drops] Allergies Allergy/AdvReac Type Severity Reaction Status Date / Time No Known Allergies Allergy Verified 10/29/23 23:22 Review of Systems ROS Statement: Those systems with pertinent positive or pertinent negative responses have been documented in the HPI. ROS Other: All systems not noted in ROS Statement are negative. Past Medical History Past Medical History: Asthma, COPD, GERD/Reflux, Hypertension, Osteoarthritis (OA), Thyroid Disorder Additional Past Medical History / Comment(s): Anemia, chronic back pain see Dr. Polo for pain specialist History of Any Multi-Drug Resistant Organisms: None Reported Past Surgical History: Appendectomy, Cholecystectomy, Tubal Ligation Additional Past Surgical History / Comment(s): Lipoma removed from left shoulder Past Anesthesia/Blood Transfusion Reactions: No Reported Reaction Past Psychological History: Anxiety Smoking Status: Current every day smoker Past Alcohol Use History: Occasional Past Drug Use History: None Reported - Past Family History Father Family Medical History: Myocardial Infarction (MS) Mother Family Medical History: AFIB Sister(s) Family Medical History: Cancer, Deep Vein Thrombosis (DVT) General Exam Limitations: no limitations General appearance: alert, in no apparent distress Head exam: Present: atraumatic, normocephalic, normal inspection Eye exam: Present: normal appearance, PERRL, EOMI. Absent: scleral icterus, conjunctival injection, periorbital swelling ENT exam: Present: other (Left tympanic membrane is shiny and transparent with a 3 mm defect at the 8 o'clock position. Right tympanic membrane is intact however there is an effusion behind the ear) Neck exam: Present: normal inspection. Absent: tenderness, meningismus, lymphadenopathy Respiratory exam: Present: normal lung sounds bilaterally. Absent: respiratory distress, wheezes, rales, rhonchi, stridor Cardiovascular Exam: Present: regular rate, normal rhythm, normal heart sounds. Absent: systolic murmur, diastolic murmur, rubs, gallop, clicks Course Vital Signs 10/29/23 10/30/23 23:20 01:31 Temperature 97.9 F 97.6 F Pulse Rate 79 76 Respiratory 20 20 Rate Blood Pressure 141/105 136/84 O2 Sat by Pulse 99 99 Oximetry Medical Decision Making - Medical Decision Making Was pt. sent in by a medical professional or institution (, [facility], STORAGE SOLUTIONS ARCHITECT, urgent care, hospital, or halfway...) When possible be specific @ -No Did you speak to anyone other than the patient for history (EMS, parent, family, police, friend...)? What history was obtained from this source @ -No Did you review nursing and triage notes (agree or disagree)? Why? @ -I reviewed and agree with nursing and triage notes Were old charts reviewed (outside hosp., previous admission, EMS record, old EKG, old radiological studies, urgent care reports/EKG's, halfway records)? Report findings @ -No old charts were reviewed Differential Diagnosis (chest pain, altered mental status, abdominal pain women, abdominal pain men, vaginal bleeding, weakness, fever, dyspnea, syncope, headache, dizziness, GI bleed, back pain, seizure, CVA, palpatations, mental health, musculoskeletal)? @ -Otitis media, otitis externa, tympanic membrane perforation, foreign body EKG interpreted by me (3pts min.). @ -Not done X-rays interpreted by me (1pt min.). @ -None done CT interpreted by me (1pt min.). @ -None done U/S interpreted by me (1pt. min.). @ -None done What testing was considered but not performed or refused? (CT, X-rays, U/S, labs)? Why? @ -None What meds were considered but not given or refused? Why? @ -None Did you discuss the management of the patient with other professionals (professionals i.e. , [facility], STORAGE SOLUTIONS ARCHITECT, lab, RT, psych nurse, social sciences chair, drafter detail, teacher, staff mine warfare officer, nurse case management)? Give summary @ -No Was smoking cessation discussed for >3mins.? @ -No Was critical care preformed (if so, how long)? @ -No Were there social determinants of health that impacted care today? How? (Homelessness, low income, unemployed, alcoholism, drug addiction, transportation, low edu. Level, literacy, decrease access to med. care, care home, rehab)? @ -No Was there de-escalation of care discussed even if they declined (Discuss DNR or withdrawal of care, Hospice)? DNR status @ -No What co-morbidities impacted this encounter? (DM, HTN, Smoking, COPD, CAD, Cancer, CVA, ARF, Chemo, Hep., AIDS, mental health diagnosis, sleep apnea, morbid obesity)? @ -None Was patient admitted / discharged? Hospital course, mention meds given and route, prescriptions, significant lab abnormalities, going to OR and other pertinent info. @ -Upon arrival patient seen and evaluated in room 21. Thorough history and physical exam was performed. Patient does have effusion on the right. She will be prescribed antibiotics and ear drying drops. Instructed to use medications as directed. I will refer patient to ENT for her perforated tympanic membrane on the left. Patient agreeable to this plan she was instructed stable condition Undiagnosed new problem with uncertain prognosis? @ -No Drug Therapy requiring intensive monitoring for toxicity (Heparin, Nitro, Insulin, Cardizem)? @ -No Were any procedures done? @ -No Diagnosis/symptom? @ -Acute earacheright, acute ear effusion, acute otitis Acute, or Chronic, or Acute on Chronic? @ -Acute Uncomplicated (without systemic symptoms) or Complicated (systemic symptoms)? @ -Uncomplicated Side effects of treatment? @ -No Exacerbation, Progression, or Severe Exacerbation? @ -No Poses a threat to life or bodily function? How? (Chest pain, USA, MS, pneumonia, PE, COPD, DKA, ARF, appy, cholecystitis, CVA, Diverticulitis, Homicidal, Suicidal, threat to staff... and all critical care pts) @ -No Disposition Clinical Impression: Otitis media, Ear ache Disposition: HOME SELF-CARE Condition: Stable Instructions (If sedation given, give patient instructions): Earache (ED) Additional Instructions: Use the prescribed medications as directed. Follow-up with your doctor and return for any new or worsening symptoms Prescriptions: Amoxicillin 875 mg PO Q12HR #10 tablet Isopropyl Alcohol in Glycerin [Auro Dri Swimmers' Ear Drops] 5 drop RIGHT EAR QID PRN #29.6 ml PRN Reason: Ear Pain Is patient prescribed a controlled substance at d/c from ED?: No Referrals: Riley Gvoea MD [Primary Care Provider] - 1-2 days Chidi Mendez MD [STAFF PHYSICIAN] - 1-2 days Time of Disposition: 01:01
[2023-10-30] MEDS: AMOXICILLIN 875 MG TAB PO STA (01:30)
[2023-10-30 01:33] VITALS: BP 136/84; PULSE 76; TEMP 97.6
== END 2023-10-30 01:31 | disposition home or self-care (01) ==
LOC: EC 22:54
DX: H66.91 Otitis media, unspecified, right ear (principal); F17.200 Nicotine dependence, unspecified, uncomplicated; Z90.49 Acquired absence of other specified parts of digestive tract
CPT/HCPCS: 99283

== ENCOUNTER 2023-11-02 07:31 | Day surgery (SDC) | payer OTHER ==
[~2023-11-02 07:31] MED LIST changes: -BUPIVACAINE (PF) 0.25% 30 ML VIAL SQ ONE; +HYDROmorphone 0.5 MG/0.5 ML SYRINGE IVP PRN; -IOPAMIDOL M200 10 ML VIAL MISCELLANE ONE; +LIDOCAINE 1% (10MG/ML) FOR IV START INTRADERMA PRN; -LIDOCAINE 2%-EPI 1:100,000 20 ML VIAL SQ ONE; +MIDAZOLAM 2 MG/2 ML VIAL IV PRN; -Pre Op ABX Message 1 EACH MISC MISCELLANE ONE; +fentaNYL (PF) 50 MCG/ML 2 ML AMP IVP PRN; -methylPREDNISolone ACETATE 40 MG/ML 1 ML VIAL INJ ONE
--- NOTE | 2023-11-02 07:31 | HP ---
HISTORY AND PHYSICAL DATE OF SCHEDULED SURGERY: 11/02/2023. HISTORY OF PRESENT ILLNESS: Jelena Chapman is a 58-year-old patient, seen with progressive right shoulder pain. We discussed options regarding treatment. She elected to proceed with right shoulder arthroscopy. Consent regarding procedure obtained. PAST MEDICAL HISTORY: Hypertension, asthma, gastroesophageal reflux disease. PAST SURGICAL HISTORY: Appendectomy, cholecystectomy, tubal ligation. DAILY MEDICATIONS: 1. Atenolol. 2. Klonopin. 3. Naprosyn. 4. Losartan. 5. Pantoprazole. ALLERGIES: None. SOCIAL HISTORY: She denies tobacco use. PHYSICAL EVALUATION OF THE RIGHT SHOULDER: Flexion is 140 degrees. Abduction is 120 degrees. External rotation is 40 degrees with pain and weakness. Tenderness along the anterolateral acromion rotator cuff insertion site. Impingement is positive at 90 degrees. Cross-body adduction sign is positive. Drop-arm sign is positive. Distal neurovascular exam is intact. RADIOGRAPHS: Right shoulder revealed a type 2 acromion, acromioclavicular joint osteoarthritis and cystic changes of the tuberosity. MRI right shoulder revealed a partial rotator cuff tendon tear and labral tear. IMPRESSION: 1. Right shoulder impingement with partial rotator cuff tear. 2. Right shoulder labral tear. 3. Right shoulder acromioclavicular joint osteoarthritis. PLAN: Right shoulder arthroscopy with subacromial decompression, arthroscopic rotator cuff repair, Noni procedure, and debridement of labral tear. MMODL / IJN: [id number] /
[2023-11-02] MEDS: IV FLUID CONTINUATION 1,000 ML IV ONE (07:58)
[2023-11-02] MEDS: LACTATED RINGERS 1,000 ML IV SCH (08:17)
[2023-11-02] MEDS: ONDANSETRON 4 MG/2 ML VIAL IVP ONE (08:19)
[2023-11-02] MEDS: DEXAMETHASONE SOD PHOSPHATE 4 MG/ML 1 ML VIAL IV ONE (08:19)
[2023-11-02] MEDS: MIDAZOLAM 2 MG/2 ML VIAL IVP ONE (08:23)
[2023-11-02] MEDS: hydrALAZINE HCL 20 MG/ML 1 ML VIAL IVP PRN (08:42)
[2023-11-02 08:43] LABS: African American GFR (CKD) >90 (>60 ml/min/1.73 sqM); Anion Gap 4 mmol/L; Blood Urea Nitrogen 24 mg/dL (7-17); Calcium 9.5 mg/dL (8.4-10.2); Carbon Dioxide 25 mmol/L (22-30); Chloride 111 mmol/L (98-107); Glucose 101 mg/dL (74-99); Non-African American GFR(CKD) >90 (>60 ml/min/1.73 sqM); Potassium 3.7 mmol/L (3.5-5.1); Sodium 140 mmol/L (137-145)
[2023-11-02 08:47] LABS: Basophils % (A) 1 %; Eosinophils # (A) 0.2 k/uL (0-0.7); Eosinophils % (A) 3 %; HCT 37.5 % (34.0-46.0); HGB 12.2 gm/dL (11.4-16.0); Lymphocytes # (A) 1.6 k/uL (1.0-4.8); Lymphocytes % (A) 26 %; MCHC 32.5 g/dL (31.0-37.0); MCV 89.3 fL (80.0-100.0); Mean Platelet Volume 8.1; Monocytes # (A) 0.3 k/uL (0-1.0); Monocytes % (A) 5 %; Neutrophils # (A) 3.8 k/uL (1.3-7.7); Neutrophils % (A) 63 %; Platelet Count 206 k/uL (150-450); RDW 14.7 % (11.5-15.5); WBC 6.1 k/uL (3.8-10.6)
[2023-11-02] MEDS ORDERED: MIDAZOLAM 2 MG/2 ML VIAL ONE (09:25)
[2023-11-02] MEDS ORDERED: PHENYLEPHRINE 10 MG/ML VIAL ONE (09:25)
[2023-11-02] MEDS ORDERED: fentaNYL (PF) 50 MCG/ML 2 ML AMP ONE (09:25)
[2023-11-02] MEDS ORDERED: PROPOFOL 10 MG/ML 20 ML VIAL IV ONE (09:25)
[2023-11-02] MEDS ORDERED: SUCCINYLCHOLINE CHLORIDE 200 MG/10 ML VIAL IV ONE (09:25)
[2023-11-02] MEDS ORDERED: DEXAMETHASONE SOD PHOSPHATE 4 MG/ML 1 ML VIAL ONE (09:25)
[2023-11-02] MEDS ORDERED: ROPIVACAINE 5 MG/ML 30 ML VIAL ONE (09:25)
[2023-11-02] MEDS ORDERED: LIDOCAINE 1% INJ 10MG/ML (20 ML MDV) ONE (09:25)
--- NOTE | 2023-11-02 11:02 | P.OP ---
Date of Procedure: 11/02/23 Preoperative Diagnosis: Right shoulder impingement Postoperative Diagnosis: 1. Right shoulder rotator cuff tear 2. Right shoulder impingement 3. Right shoulder bicipital tendinitis 4. Right shoulder acromioclavicular joint osteoarthritis 5. Right shoulder superficial labral tear Procedure(s) Performed: 1. Right shoulder arthroscopic rotator cuff repair 2. Right shoulder arthroscopic subacromial decompression 3. Right shoulder arthroscopic biceps tenodesis 4. Right shoulder arthroscopic Noni procedure 5. Right shoulder arthroscopic debridement labral tear Implants: 1Arthrex 4.75 swivel lock anchor 1Arthrex 5.5 swivel lock anchor Anesthesia: GETA, regional (Interscalene block) Surgeon: Rey Lopez Plastic Card Grader Cardroom #1: Juanjo Balderas Estimated Blood Loss (ml): 8 Pathology: none sent Condition: stable Disposition: PACU Indications for Procedure: 58-year-old patient seen with progressive right shoulder pain. After having treatment options discussed, she elected to proceed with arthroscopy. Operative Findings: See description of procedure Description of Procedure: Patient underwent an interscalene block by department of anesthesia. The patient was then taken to the operative suite. The patient underwent a general anesthetic by the department of anesthesia. The patient was placed into a lateral position and secured. There was appropriate padding of the bony prominence. Right shoulder was then prepped and draped in normal sterile orthopedic fashion. We placed the extremity in 10 pounds of longitudinal traction. A posterior incision was now made for a posterior working portal site. The trocar and cannula were inserted into the glenohumeral joint. Arthroscopy was initiated. Spinal needle was now inserted anteriorly, to ascertain the anterior working portal site. An incision was now made in that area, a trocar was inserted followed by a probe. There was a superficial superior labral tear present. There were grade I/II chondromalacia changes of the superior and central portion of the humeral head without tears. The remaining labrum was stable. There was some hyperemia and partial tearing long head biceps tendon. I used a motorized shaver and debrided out the superficial labral tear getting down to stable labral tissue. I decided to proceed with arthroscopic biceps tenodesis. I used a cannula through the anterior portal site. I passed a loop and tack type stitch to the biceps tendon. I now released the biceps tendon from the superior anchor. With the assistance of a Yeison PRICE punch hole at the interval for insertion of an anchor. The suture limb was passed through the eyelet of an Arthrex 4.75 swivel lock anchor. I placed the eyelet into the preplanned hole and held in position while Yeison PRICE tensioned the suture and deployed the anchor with good fixation noted. The residual suture limbs were now clipped. We had a stable appearing biceps tenodesis. Instruments were now removed from the glenohumeral joint. Utilizing the posterior working portal site, the trocar and cannula were inserted into the subacromial space. Arthroscopy initiated. I made an incision 2 fingerbreadths lateral to the acromion. I introduced my trocar followed by my ArthroCare ablator. I now began ablating thick subacromial bursal tissue, which exposed the undersurface of the anterior acromion. There was diminished subacromial space. There was a very prominent anterior acromion. A motorized bur was introduced and a subacromial decompression was performed. I also excised some osteophytes off the inferior aspect of the distal clavicle. The AC joint was visualized and noted to be fairly arthritic. The motorized bur was introduced in the anterior portal site and a Noni procedure was performed without difficulty removing 8 mm of bone off the distal clavicle, decompressing the AC joint nicely. I turned my attention to the rotator cuff. There was a 1 cm - 1.5 cm tear involving the central distal supraspinatus tendon. I debrided the margins getting down to stable tendon tissue. I abraded the footprint with a motorized bur. With the assistance of Yeison PRICE I passed 3 inverted mattress sutures through good bites of rotator cuff tendon. I punched a hole in the footprint area for insertion of an anchor. All 6 limbs of suture were passed through the eyelet of an Arthrex 5.5 swivel lock anchor. I placed the eyelet into the preplanned hole. I held in position while Yeison PRICE tension all the suture limbs and deployed the anchor with good fixation noted. All residual suture limbs were now clipped. We had good compression of the tendon along the entire footprint. Instruments now removed from the portal sites. All portal sites were approximated with nylon suture. Sterile dressings were applied followed by a shoulder sling. Juanjo PRICE assisted in this complex case. The patient was awakened, transferred to a bed, and taken to recovery in stable condition.
[2023-11-02 11:05] VITALS: TEMP 97.2
[2023-11-02] MEDS: hydrALAZINE HCL 20 MG/ML 1 ML VIAL IVP ONE (11:48)
[2023-11-02 12:08] VITALS: RESP 16
[2023-11-02 12:39] VITALS: BP 140/90; PULSE 90
--- NOTE | 2023-11-02 20:06 | P.ANPRN ---
Procedure Note - Anesthesia - Nerve Block Performed Right Interscalene Single Time Out Performed: Yes Date of Procedure: 11/02/23 Procedure Start Time: Procedure Stop Time: Location of Patient: PreOp Indication: Acute Post-Operative Pain, Requested by Surgeon Sedation Type: Sedate with meaningful contact maintained Preparation: Sterile Prep Position: Supine Needle Types: Pajunk Needle Gauge: 21 Ultrasound used to visualize needle placement: Yes Ultrasound used to observe medication spread: Yes Blood Aspirated: No Pain Paresthesia on Injection Noted: No Resistance on Injection: Normal Image Stored and Saved: Yes Events: Uneventful and Well Tolerated (Ropivacaine 0.5% 20 cc plus dexamethasone 4 mg)
== END 2023-11-02 13:03 | disposition home or self-care (01) ==
LOC: OR 07:31
PROVIDERS: ATTEND Orthopaedic Surgery
DX: S46.011A Strain of muscle(s) and tendon(s) of the rotator cuff of right shoulder, initial encounter (principal); M19.011 Primary osteoarthritis, right shoulder; M75.41 Impingement syndrome of right shoulder; M75.21 Bicipital tendinitis, right shoulder; M25.811 Other specified joint disorders, right shoulder; K21.9 Gastro-esophageal reflux disease without esophagitis; J45.909 Unspecified asthma, uncomplicated; I10 Essential (primary) hypertension; G89.18 Other acute postprocedural pain; Z90.49 Acquired absence of other specified parts of digestive tract; Z98.51 Tubal ligation status; Z79.899 Other long term (current) drug therapy; X58.XXXA Exposure to other specified factors, initial encounter
CPT/HCPCS: 64415; 80048; 85025; 29807; 29824; 29826; 29827; 29828; C1713 ×4; J2250; J0330; J0360; J1100; J0690; J2405; J2001; J3010; J2795; J2704; J2371

== ENCOUNTER 2024-09-28 12:12 | Emergency (ER) | payer OTHER ==
[2024-09-28 12:31] VITALS: RESP 20
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
--- NOTE | 2024-09-28 13:32 | XR ---
EXAMINATION TYPE: XR foot complete LT DATE OF EXAM: 09/28/2024 1:19 PM COMPARISON: 09/09/2012 CLINICAL INDICATION: Female, 59 years old with history of pain, pain TECHNIQUE: 3 view(s) obtained. FINDINGS: No acute fracture or dislocation evident. Joint spaces are preserved. Soft tissues appear normal. Follow up exams can be performed 7-10 days from acute trauma for continued pain. IMPRESSION: 1. No acute osseous abnormality left foot. [facility], , 09/28/2024 1:29 PM
--- NOTE | 2024-09-28 13:36 | XR ---
EXAMINATION TYPE: XR elbow complete LT DATE OF EXAM: 09/28/2024 1:19 PM COMPARISON: None. CLINICAL INDICATION: Female, 59 years old with history of pain, pain TECHNIQUE: 3 view(s) obtained. FINDINGS: Radius aligns normally with the humerus. No acute fracture or dislocation evident. Anterior fat pad i s normal. No elevation posterior fat pad is evident. Soft tissues appear normal. Follow up exams can be performed 7-10 days from acute trauma for continued pain IMPRESSION: 1. No acute osseous abnormalities left elbow. [facility], , 09/28/2024 1:33 PM
[2024-09-28 14:16] VITALS: BP 118/76; PULSE 76; TEMP 98.1
== END 2024-09-28 14:16 | disposition home or self-care (01) ==
LOC: EC 12:12
DX: S90.32XA Contusion of left foot, initial encounter (principal); S50.02XA Contusion of left elbow, initial encounter; Y04.0XXA Assault by unarmed brawl or fight, initial encounter
CPT/HCPCS: 99283